=== PATIENT | male | born 1980 | race Caucasian/White ===

== ENCOUNTER 2021-09-30 18:50 | Emergency (ER) | payer OTHER, SELFPAY ==
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
[2021-09-30 19:13] VITALS: BP 144/86; PULSE 118; RESP 18; TEMP 36.2; O2SAT 100
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
[2021-09-30] MEDS: HYDROcodone/acetaminophen (*CRX) 5-325 MG TABLET 1 TAB PO (20:55)
[2021-09-30 21:17] VITALS: BP 148/110; PULSE 106; RESP 20; TEMP 36.1; O2SAT 93
== END 2021-09-30 21:19 | disposition home or self-care (01) ==
LOC: ANHED 20:56
PROVIDERS: Emergency Provider Emergency Medicine; PCP Family Medicine
DX: S52.571A Other intraarticular fracture of lower end of right radius, initial encounter for closed fracture (principal); S52.611A Displaced fracture of right ulna styloid process, initial encounter for closed fracture; F17.200 Nicotine dependence, unspecified, uncomplicated; Y04.0XXA Assault by unarmed brawl or fight, initial encounter
CPT/HCPCS: 29125; 73110; 73130; 99284; A4565; A9270

== ENCOUNTER 2023-07-17 07:43 | Outpatient (CLI) | payer OTHER, SELFPAY ==
--- NOTE | ~2023-07-17 | US_ITS ---
US right upper quadrant INDICATION: Abdomen pain PROCEDURE: Realtime right upper abdominal ultrasound. COMPARISON: No prior studies for comparison. FINDINGS: The pancreas is normal without focal mass or pancreatic ductal dilation. Liver echotexture is increased, consistent with fatty infiltration. There is normal directional flow in the portal ve in. The gallbladder is normal without stones, gallbladder wall thickening or pericholecystic fluid. Comm on bile duct measures 4 mm. No sonographic Colvin's sign. IMPRESSION: 1: Hepatic steatosis. Reviewed, dictated and finalized at location L. IMPRESSION: 1: Hepatic steatosis.
== END 2023-07-17 07:44 ==
LOC: MICIMG 07:44
PROVIDERS: PCP Family Medicine; Visit Provider Family Medicine
DX: R10.9 Unspecified abdominal pain (principal); K76.0 Fatty (change of) liver, not elsewhere classified
CPT/HCPCS: 76705

== ENCOUNTER → 2023-11-05 15:22 | Outpatient (CLI) | payer OTHER, SELFPAY ==
--- NOTE | ~2023-11-05 | XR_ITS ---
XR hip RT 2V w AP pelvis DATE: 11/05/2023 15:36 INDICATION: Right hip pain TECHNIQUE: AP pelvis. AP and lateral views of right hip COMPARISON: None FINDINGS: The pubic symphysis and sacroiliac joints are intact. No pelvic fracture or bone destructio n is detected. The hip joint space spaces appear symmetric and relatively preserved. No fracture or dislocation, richard scular necrosis or bone destruction of the right hip is detected. IMPRESSION: No significant abnormality Reviewed, dictated and finalized at location B. [employer] IMPRESSION: No significant abnormality
== END ==
PROVIDERS: PCP Family Medicine; Visit Provider Family Medicine
DX: M25.551 Pain in right hip (principal)
CPT/HCPCS: 73502

== ENCOUNTER 2023-11-06 14:17 | Emergency (ER) | payer OTHER, SELFPAY ==
[2023-11-06 14:20] VITALS: BP 157/99; PULSE 108; RESP 18; TEMP 36.6; O2SAT 98
--- NOTE | 2023-11-06 14:40 | ED.GENADULT ---
HPI - General Adult General Chief complaint: Extremity Injury, Lower Stated complaint: right back/leg pain Time Seen by Provider: 11/06/23 14:29 Source: patient Mode of arrival: ambulatory Limitations: no limitations History of Present Illness HPI narrative: This is a 43-year-old male who presents to the ED with chief complaint of right lower back pain the past 4 days. Reports that he was seen by primary care who ordered a pelvis x-ray. He was trying to get in touch with them about the results and told them he was still having significant pain so they told him to go to the ER. He has tried ibuprofen, Tylenol and muscle relaxers with minimal relief. Denies trauma, unexplained weight loss, numbness, weakness, fevers, chills, nausea, vomiting, history of IV drug use, long-term steroid use or cancer history. States he is not very active and does not do a lot of strenuous activity. Denies loss of bowel or bladder control. Related Data Home Medications Medication Instructions Recorded Confirmed atorvastatin 10 mg tablet (Lipitor) 10 mg PO DAILY 10/03/21 fluoxetine 10 mg capsule (Prozac) 10 mg PO DAILY 10/03/21 melatonin 3 mg capsule 3 mg PO QHS 10/03/21 omeprazole 10 mg capsule,delayed 10 mg PO DAILY 10/03/21 release Allergies Allergy/AdvReac Type Severity Reaction Status Date / Time No Known Allergies Allergy Verified 08/27/23 08:11 Review of Systems Review of Systems: All systems as dictated in [facility] Past Medical History Medical History (Updated 11/06/23 @ 15:02 by Emilio Xie PA-C) Diabetes Hypertension Sleep apnea Surgical History Surgical History (Updated 10/03/21 @ 11:47 by Kitty Webster MA) History of appendectomy History of tonsillectomy Family History Family History (Updated 08/27/23 @ 08:12 by YARITZA Cedeno) Mother Family history of diabetes mellitus in first degree relative Family history of malignant neoplasm of breast in first degree relative Father No problems noted. Sibling No problems noted. Social History Social History (Updated 10/03/21 @ 11:48 by Kitty Webster MA) Smoking status: Current every day smoker Alcohol intake: current Alcohol use details: once a month Substance use: never Exam Narrative: GENERAL: Well-appearing, well-nourished, and in no acute distress. HEAD: Normocephalic, atraumatic. EYES: PERRLA and EOMI. ENT: Nares clear, no rhinorrhea or epistaxis. Mucous membranes moist. Oropharynx without tonsillar hypertrophy exudate or other lesions. NECK: Supple. No adenopathy or masses. CHEST: No respiratory distress. Clear to auscultation. No wheezes rales or rhonchi HEART: Regular rate and rhythm. No murmur heard. Normal peripheral pulses. ABDOMEN: Soft, nontender, nondistended, normal active bowel sounds. MSK: Mild right lumbar paraspinal muscle tenderness as well as upper gluteal tenderness. No tenderness over the SI joints. No midline spinal tenderness. Straight leg raise negative bilaterally. Ambulatory without difficulty. normal range of motion. No edema. SKIN: Warm, dry, no rash. NEURO: Alert and oriented x3. No focal deficits. No saddle anesthesia. PSYCH: Normal mood and affect. Course Vital Signs Vital signs: Vital Signs Temperature 97.9 F 11/06/23 14:20 Pulse Rate 108 H 11/06/23 14:20 Respiratory Rate 18 11/06/23 14:20 Blood Pressure 157/99 H 11/06/23 14:20 Pulse Oximetry 98 11/06/23 14:20 Oxygen Delivery Room Air 11/06/23 14:20 Temperature 97.9 F 11/06/23 14:20 Pulse Rate 103 H 11/06/23 14:43 Respiratory Rate 19 11/06/23 14:43 Blood Pressure 156/107 H 11/06/23 14:43 Pulse Oximetry 96 11/06/23 14:43 Oxygen Delivery Room Air 11/06/23 14:20 Medical Decision Making MDM Narrative Medical decision making narrative: This patient presents with back pain most consistent with muscle strain. Differential diagnoses includes lumbago versus muscu
[2023-11-06 14:43] VITALS: BP 156/107; PULSE 103; RESP 19; O2SAT 96
[2023-11-06] MEDS: KETOROLAC 30 MG/ML VIAL (*BKC) IM (15:04)
== END 2023-11-06 15:21 | disposition home or self-care (01) ==
PROVIDERS: Emergency Provider Physician Assistant; PCP Family Medicine
DX: M54.50 Low back pain, unspecified (principal); E11.9 Type 2 diabetes mellitus without complications; I10 Essential (primary) hypertension; G47.30 Sleep apnea, unspecified; F17.200 Nicotine dependence, unspecified, uncomplicated
CPT/HCPCS: 96372; 99283; J1885

== ENCOUNTER 2025-04-19 02:40 | Day surgery (SDC) | payer OTHER, SELFPAY ==
[2025-04-04 13:19] VITALS: BMI 38.8
--- OUTSIDE RECORDS SUMMARY | 2025-04-19 02:49 | XMS_ITS | Data Portability ---
Author Organization [facility] [employer], Main Office Address [address] [place] [address] Assessment No assessment recorded. Plan of Treatment Reminders Order Date Submit Date Provider Last Modified By Organization Details Last Modified Time Details Appointments None recorded. Lab HbA1c (hemoglobi n A1c), blood 2023 024 [email or web address] 2 [facility], [address], [place], [address], 5 08:28:49 lipid panel, serum 2023 024 2 [facility], [address], [place], [address], 5 08:28:49 CMP, serum or plasma 2023 024 [email or web address] 2 [facility], [address], [place], [address], 5 08:28:49 CBC w/ auto diff 2023 024 [email or web address] 2 [facility], [address], [place], [address], 5 08:28:49 TSH, ultra-sens itive, serum 2023 024 [email or web address] 2 [facility], [address], [place], [address], 5 08:28:49 Hepatitis C IgG Ab, qual, serum 2023 024 [email or web address] 2 [facility], [address], [place], [address], 5 08:28:49 testostero ne, free + total, serum [address] (Lab), [address] [place], [address], 4 07:57:36 [email or web address] lobin, total, blood [address] (Lab), [address] [place], [address], 4 08:16:11 CMP, serum or plasma 2023 024 [facility] (Lab), [address] [place], [address], 4 08:25:16 CMP, serum or plasma 2022 023 DEXTER Not available 3 21:25:44 CBC w/ auto diff 2022 023 [email or web address] Not available 3 08:14:15 amylase, serum or plasma 2022 023 DEXTER Not available 3 21:44:18 lipase, serum or plasma 2022 023 DEXTER Not available 3 23:42:51 Referral gastroente rologist referral - Please call patient to schedule. 2023 024 nina Srivastava MD, [address], [place], [address], 5 14:04:08 Procedures None recorded. Surgeries None recorded. Imaging US, abdomen - RUQ US-rule out gallbladde r *Please call pt to schedule* 2022 023 [email or web address] [facility], [address], [place], [address], 3 09:40:38 Medication Orders zolpidem 10 mg tablet 2023 024 [facility], [address], [place], [place], [id number], 4 16:06:48 atorvastat in 40 mg tablet 2023 024 [facility], [address], [place], [place], [id number], 4 16:06:46 fluoxetine 40 mg capsule 2023 024 [facility], [address], [place], [place], [id number], 4 16:06:46 losartan 50 mg tablet 2023 024 [address] [facility]28452, [address], [place], [place], [id number], 4 16:10:46 omeprazole 20 mg capsule,de layed release 2023 024 [facility], [address], [place], [place], [id number], 4 16:06:54 Mounjaro 7.5 mg/0.5 mL subcutaneo us pen injector 2023 024 [address] [facility]10, [address], [place], [place], [id number], 4 15:52:10 sucralfate 1 gram tablet 2022 023 lizeth [facility], [address], [place], [place], [id number], 4 15:41:12 pantoprazo le 40 mg tablet,del ayed release 2022 023 [email or web address] [facility], [address], [place], [place], [id number], 15:06:22 Patient TargetsNo targets recorded. Patient Instructions Encounter Date Encounter Id Patient Instructions Last Modified By Organization Details Last Modified Time 09/22/2024 [id number] diabetic foot exam* [email or web address] Not available 01/06/2025 09:47:14 Follow up in 6 months Obtain labs Tests: Referral: Dr. Srivastava-colonoscopy Recommend: Tetanus vaccine [email or web address] Not available 09/22/2024 15:59:04 Reason for Referral User Experience Team Lead Referral for Screening for malignant neoplasm of colon Please call patient to schedule. Referring Physician: Ban Augustin, Internal Medicine, Encounter Date: 09/22/2024 Results Created Date Observation Date Name Description Value Unit Range Abnormal Flag Note LastModifiedBy Organization Detail LastModifiedTime 06/05/2006/05/2023 TEST NOT PERFO RMED test not performed SEE COMMEN T UNABL E TO PERFO RM CBC TESTI NG DUE TO CLOT IN SPECI MEN. Not Available [facility] (Lab) [address] [place], [address], 06/05/2023 21:01:17 06/05/2006/05/2023 COMPR EHENS MUNIRA METAB OLIC PANEL sodium 137 mmol/ L 137-14 5 Not Available [facility] (Lab) [address] [place], [address], 06/05/2023 21:25:44 06/05/2006/05/2023 COMPR EHENS MUNIRA METAB OLIC PANEL potassium 4.5 mmol/ L 3.5-5. 1 Not Available [facility] (Lab) [address] [place], [address], 06/05/2023 21:25:44 06/05/20 23 06/05/2023 COMPR EHENS MUNIRA METAB OLIC PANEL chloride 102 mmol/ L 98-107 Not Available [facility] (Lab) [address] [place], [address], 06/05/2023 21:25:44 06/05/20 23 06/05/2023 COMPR EHENS MUNIRA METAB OLIC PANEL carbon dioxide 25 mmol/ L 22-30 Not Available [facility] (Lab) [address] [place], [address], 06/05/2023 21:25:44 06/05/20 23 06/05/2023 COMPR EHENS MUNIRA METAB OLIC PANEL anion gap 14.5 mmol/ L 14-22 Not Available [facility] (Lab) [address] [place], [address], 06/05/2023 21:25:44 06/05/20 23 06/05/2023 COMPR EHENS MUNIRA METAB OLIC PANEL glucose 160 mg/dL 70-99 high Not Available [facility] (Lab) [address] [place], [address], 06/05/2023 21:25:44 06/05/20 23 06/05/2023 COMPR EHENS MUNIRA METAB OLIC PANEL BUN 23 mg/dL 8-19 high Not Available [facility] (Lab) [address] [place], [address], 06/05/2023 21:25:44 06/05/20 23 06/05/2023 COMPR EHENS MUNIRA METAB OLIC PANEL creatinine 1.02 mg/dL 0.66-1 .25 Not Available [facility] (Lab) [address] [place], [address], 06/05/2023 21:25:44 06/05/20 23 06/05/2023 COMPR EHENS MUNIRA METAB OLIC PANEL GFR >60 Refer ence Range : Pelzer ge GFR Healt hy Adult : >60 mL/mi n/1.7 3 m2 Chron ic Kidne y Disea se: 15-60 mL/mi n/1.7 3 m2 Kidne y Failu re: <15/m L/min /1.73 m2 www.n iddk. nih.g ov The MDRD study equat ion has not been valid ated in child justine <18 years of age; pregn ant women ; the elder ly >85 years of age; or in some racia l or ethni c subgr oups, such as Hispa nics. Outsi de the valid ated elizabeth eters , estim ated GFR is less accur ate, requi ring clini michelle judgm ent on a case- by-ca se basis . Clini michelle inter preta tion for other races and ages must be made by the clini flaco. The MDRD study equat ion has not been valid ated for the evalu ation of serum creat inine relat ed to nutri harry l statu s or medic ation usage . For perso ns <18 years of age, a pedia tric GFR calcu lator is avail able on the [facility] websi te: https :[email or web address] w.cindy beverly.o charisma/pr ofess ional s/kdo qi/gf r_cal culat or Not Available [facility] (Lab) [address] [place], [address], 06/05/2023 21:25:44 06/05/20 23 06/05/2023 COMPR EHENS MUNIRA METAB OLIC PANEL alkaline phosphatase 96 U/L 38-126 Not Available [facility] (Lab) [address] [place], [address], 06/05/2023 21:25:44 06/05/20 23 06/05/2023 COMPR EHENS MUNIRA METAB OLIC PANEL alanine aminotransfe rase 121 U/L 0-50 high Not Available [facility] (Lab) [address] [place], [address], 06/05/2023 21:25:44 06/05/20 23 06/05/2023 COMPR EHENS MUNIRA METAB OLIC PANEL aspartate aminotransfe rase 74 U/L 15-46 high Not Available [facility] (Lab) [address] [place], [address], 06/05/2023 21:25:44 06/05/20 23 06/05/2023 COMPR EHENS MUNIRA METAB OLIC PANEL bilirubin, total 0.90 mg/dL 0.20-1 .30 Not Available [facility] (Lab) [address] [place], [address], 06/05/2023 21:25:44 06/05/20 23 06/05/2023 COMPR EHENS MUNIRA METAB OLIC PANEL calcium 9.3 mg/dL 8.4-10 .2 Not Available [facility] (Lab) [address] [place], [address], 06/05/2023 21:25:44 06/05/20 23 06/05/2023 COMPR EHENS MUNIRA METAB OLIC PANEL total protein 7.7 g/dL 6.3-8. 2 Not Available [facility] (Lab) [address] [place], [address], 06/05/2023 21:25:44 06/05/20 23 06/05/2023 COMPR EHENS MUNIRA METAB OLIC PANEL albumin 4.6 g/dL 3.4-5. 0 Not Available [facility] (Lab) [address] [place], [address], 06/05/2023 21:25:44 06/05/20 23 06/05/2023 COMPR EHENS MUNIRA METAB OLIC PANEL globulin 3.1 g/dL 2.6-4. 2 Not Available [facility] (Lab) [address] [place], [address], 06/05/2023 21:25:44 06/05/20 23 06/05/2023 COMPR EHENS MUNIRA METAB OLIC PANEL A/G ratio 1.5 ratio 1.0-2. 0 Not Available [facility] (Lab) [address] [place], [address], 06/05/2023 21:25:44 06/05/20 23 06/05/2023 AMYLA SE SERUM amylase 64 U/L 30-110 Not Available [facility] (Lab) [address] [place], [address], 06/05/2023 23:42:49 06/05/20 23 06/05/2023 LIPAS E SERUM lipase 93 U/L 23-300 Not Available [facility] (Lab) [address] [place], [address], 06/05/2023 23:42:51 06/19/20 23 06/20/2023 CBC WITH DIFFE RENTI AL/PL ATELE T WBC 7.6 x10e3 /uL 3.4-10 .8 Not Available [facility] ([facility]) [address] [place], [address], 06/20/2023 09:14:41 06/19/2006/20/2023 CBC WITH DIFFE RENTI AL/PL ATELE T RBC 5.02 x10e6 /uL 4.14-5 .80 Not Available [facility] ([facility]) [address] [place], [address], 06/20/2023 09:14:41 06/19/2006/20/2023 CBC WITH DIFFE RENTI AL/PL ATELE T hemoglobin 14.8 g/dL 13.0-1 7.7 Not Available [facility] ([facility]) [address] [facility], [place], [address], 06/20/2023 09:14:41 06/19/20 23 06/20/2023 CBC WITH DIFFE RENTI AL/PL ATELE T hematocrit 42.7 % 37.5-5 1.0 Not Available [facility] ([facility]) [address] [facility], [place], [address], 06/20/2023 09:14:41 06/19/20 23 06/20/2023 CBC WITH DIFFE RENTI AL/PL ATELE T MCV 85 fL 79-97 Not Available [facility] ([facility]) [address] [facility], [place], [address], 06/20/2023 09:14:41 06/19/20 23 06/20/2023 CBC WITH DIFFE RENTI AL/PL ATELE T MCH 29.5 pg 26.6-3 3.0 Not Available [facility] ([facility]) [address] [facility], [place], [address], 06/20/2023 09:14:41 06/19/20 23 06/20/2023 CBC WITH DIFFE RENTI AL/PL ATELE T MCHC 34.7 g/dL 31.5-3 5.7 Not Available [facility] ([facility]) [address] [facility], [place], [address], 06/20/2023 09:14:41 06/19/20 23 06/20/2023 CBC WITH DIFFE RENTI AL/PL ATELE T RDW 13.2 % 11.6-1 5.4 Not Available [facility] ([facility]) [address] [facility], [place], [address], 06/20/2023 09:14:41 06/19/2006/20/2023 CBC WITH DIFFE RENTI AL/PL ATELE T platelets 345 x10e3 /uL 150-45 0 Not Available [facility] ([facility]) [address] [facility], [place], [address], 06/20/2023 09:14:41 06/19/20 23 06/20/2023 CBC WITH DIFFE RENTI AL/PL ATELE T neutrophils 60 % not estab. Not Available [facility] ([facility]) [address] [place], [address], 06/20/2023 09:14:41 06/19/20 23 06/20/2023 CBC WITH DIFFE RENTI AL/PL ATELE T lymphs 29 % not estab. Not Available [facility] ([facility]) [address] [facility], [place], [address], 06/20/2023 09:14:41 06/19/20 23 06/20/2023 CBC WITH DIFFE RENTI AL/PL ATELE T monocytes 8 % not estab. Not Available [facility] ([facility]) [address] [facility], [place], [address], 06/20/2023 09:14:41 06/19/20 23 06/20/2023 CBC WITH DIFFE RENTI AL/PL ATELE T eos 2 % not estab. Not Available [facility] ([facility]) [address] [facility], [place], [address], 06/20/2023 09:14:41 06/19/20 23 06/20/2023 CBC WITH DIFFE RENTI AL/PL ATELE T basos 1 % not estab. Not Available [facility] ([facility]) [address] [facility], [place], [address], 06/20/2023 09:14:41 06/19/20 23 06/20/2023 CBC WITH DIFFE RENTI AL/PL ATELE T immature cells [employer]EARCH [employer] INSIGHTS EXECUTIVE Not Available [facility] ([facility]) [address] [facility], [place], [address], 06/20/2023 09:14:41 06/19/20 23 06/20/2023 CBC WITH DIFFE RENTI AL/PL ATELE T neutrophils (absolute) 4.5 x10e3 /uL 1.4-7. 0 Not Available [facility] ([facility]) [address] [facility], [place], [address], 06/20/2023 09:14:41 06/19/20 23 06/20/2023 CBC WITH DIFFE RENTI AL/PL ATELE T lymphs (absolute) 2.2 x10e3 /uL 0.7-3. 1 Not Available [facility] ([facility]) [address] [facility], [place], [address], 06/20/2023 09:14:41 06/19/20 23 06/20/2023 CBC WITH DIFFE RENTI AL/PL ATELE T monocytes(ab solute) 0.6 x10e3 /uL 0.1-0. 9 Not Available [facility] ([facility]) [address] [facility], [place], [address], 06/20/2023 09:14:41 06/19/20 23 06/20/2023 CBC WITH DIFFE RENTI AL/PL ATELE T eos (absolute) 0.2 x10e3 /uL 0.0-0. 4 Not Available [facility] ([facility]) [address] [facility], [place], [address], 06/20/2023 09:14:41 06/19/20 23 06/20/2023 CBC WITH DIFFE RENTI AL/PL ATELE T baso (absolute) 0.1 x10e3 /uL 0.0-0. 2 Not Available [facility] ([facility]) [address] [facility], [place], [address], 06/20/2023 09:14:41 06/19/20 23 06/20/2023 CBC WITH DIFFE RENTI AL/PL ATELE T immature granulocytes 0 % not estab. Not Available [facility] ([facility]) [address] [facility], [place], [address], 06/20/2023 09:14:41 06/19/20 23 06/20/2023 CBC WITH DIFFE RENTI AL/PL ATELE T immature grans (abs) 0.0 x10e3 /uL 0.0-0. 1 Not Available [facility] ([facility]) [address] [facility], [place], [address], 06/20/2023 09:14:41 06/19/20 23 06/20/2023 CBC WITH DIFFE RENTI AL/PL ATELE T NRBC [employer]EARCH [employer] INSIGHTS EXECUTIVE Not Available [facility] ([facility]) [address], [place], [address], 06/20/2023 09:14:41 06/19/20 23 06/20/2023 CBC WITH DIFFE RENTI AL/PL ATELE T hematology comments: RESEARCH & INSIGHTS EXECUTIVE Not Available [facility] ([facility]) [address] [facility], [place], [address], 06/20/2023 09:14:41 06/19/20 23 06/20/2023 COMP. METAB OLIC PANEL (14) glucose 141 mg/dL 70-99 above high normal Not Available [facility] ([facility]) [address] [facility], [place], [address], 06/20/2023 09:14:42 06/19/20 23 06/20/2023 COMP. METAB OLIC PANEL (14) BUN 17 mg/dL 6-24 Not Available [facility] ([facility]) [address] [facility], [place], [address], 06/20/2023 09:14:42 06/19/20 23 06/20/2023 COMP. METAB OLIC PANEL (14) creatinine 1.05 mg/dL 0.76-1 .27 Not Available [facility] ([facility]) [address] [facility], [place], [address], 06/20/2023 09:14:42 06/19/20 23 06/20/2023 COMP. METAB OLIC PANEL (14) eGFR 89 mL/mi n/1.7 3 >59 Not Available [facility] ([facility]) [address] [facility], [place], [address], 06/20/2023 09:14:42 06/19/20 23 06/20/2023 COMP. METAB OLIC PANEL (14) BUN/creatini ne ratio 16 9-20 Not Available [facility] ([facility]) [address] [place], [address], 06/20/2023 09:14:42 06/19/20 23 06/20/2023 COMP. METAB OLIC PANEL (14) sodium 138 mmol/ L 134-14 4 Not Available [facility] ([facility]) [address] [place], [address], 06/20/2023 09:14:42 06/19/20 23 06/20/2023 COMP. METAB OLIC PANEL (14) potassium 4.0 mmol/ L 3.5-5. 2 Not Available [facility] ([facility]) [address] [facility], [place], [address], 06/20/2023 09:14:42 06/19/20 23 06/20/2023 COMP. METAB OLIC PANEL (14) chloride 99 mmol/ L 96-106 Not Available [facility] ([facility]) [address] [place], [address], 06/20/2023 09:14:42 06/19/20 23 06/20/2023 COMP. METAB OLIC PANEL (14) carbon dioxide, total 23 mmol/ L 20-29 Not Available [facility] ([facility]) [address] [place], [address], 06/20/2023 09:14:42 06/19/20 23 06/20/2023 COMP. METAB OLIC PANEL (14) calcium 9.5 mg/dL 8.7-10 .2 Not Available [facility] ([facility]) [address] [place], [address], 06/20/2023 09:14:42 06/19/20 23 06/20/2023 COMP. METAB OLIC PANEL (14) protein, total 7.3 g/dL 6.0-8. 5 Not Available [facility] ([facility]) [address] [place], [address], 06/20/2023 09:14:42 06/19/20 23 06/20/2023 COMP. METAB OLIC PANEL (14) albumin 4.6 g/dL 4.1-5. 1 Not Available [facility] ([facility]) [address] [place], [address], 06/20/2023 09:14:42 06/19/20 23 06/20/2023 COMP. METAB OLIC PANEL (14) globulin, total 2.7 g/dL 1.5-4. 5 Not Available [facility] ([facility]) [address] [place], [address], 06/20/2023 09:14:42 06/19/20 23 06/20/2023 COMP. METAB OLIC PANEL (14) A/G ratio 1.7 1.2-2. 2 Not Available [facility] ([facility]) [address] [place], [address], 06/20/2023 09:14:42 06/19/20 23 06/20/2023 COMP. METAB OLIC PANEL (14) bilirubin, total 0.4 mg/dL 0.0-1. 2 Not Available [facility] ([facility]) [address] [place], [address], 06/20/2023 09:14:42 06/19/20 23 06/20/2023 COMP. METAB OLIC PANEL (14) alkaline phosphatase 101 IU/L 44-121 Not Available [facility] ([facility]) [address] [place], [address], 06/20/2023 09:14:42 06/19/20 23 06/20/2023 COMP. METAB OLIC PANEL (14) AST (SGOT) 36 IU/L 0-40 Not Available [facility] ([facility]) [address] [place], [address], 06/20/2023 09:14:42 06/19/20 23 06/20/2023 COMP. METAB OLIC PANEL (14) ALT (SGPT) 72 IU/L 0-44 above high normal Not Available [facility] ([facility]) [address] [place], [address], 06/20/2023 09:14:42 03/18/20 24 03/19/2024 COMP. METAB OLIC PANEL (14) glucose 136 mg/dL 70-99 above high normal Not Available [facility] ([facility]) [address] [place], [address], 03/19/2024 08:25:16 03/18/20 24 03/19/2024 COMP. METAB OLIC PANEL (14) BUN 10 mg/dL 6-24 Not Available [facility] ([facility]) [address] [place], [address], 03/19/2024 08:25:16 03/18/20 24 03/19/2024 COMP. METAB OLIC PANEL (14) creatinine 0.86 mg/dL 0.76-1 .27 Not Available [facility] ([facility]) [address] [place], [address], 03/19/2024 08:25:16 03/18/20 24 03/19/2024 COMP. METAB OLIC PANEL (14) eGFR 109 mL/mi n/1.7 3 >59 Not Available [facility] ([facility]) [address] [place], [address], 03/19/2024 08:25:16 03/18/20 24 03/19/2024 COMP. METAB OLIC PANEL (14) BUN/creatini ne ratio 12 9-20 Not Available [facility] ([facility]) [address] [place], [address], 03/19/2024 08:25:16 03/18/20 24 03/19/2024 COMP. METAB OLIC PANEL (14) sodium 140 mmol/ L 134-14 4 Not Available [facility] ([facility]) [address] [place], [address], 03/19/2024 08:25:16 03/18/20 24 03/19/2024 COMP. METAB OLIC PANEL (14) potassium 3.9 mmol/ L 3.5-5. 2 Not Available [facility] ([facility]) [address] [place], [address], 03/19/2024 08:25:16 03/18/20 24 03/19/2024 COMP. METAB OLIC PANEL (14) chloride 103 mmol/ L 96-106 Not Available [facility] ([facility]) [address] [place], [address], 03/19/2024 08:25:16 03/18/20 24 03/19/2024 COMP. METAB OLIC PANEL (14) carbon dioxide, total 22 mmol/ L 20-29 Not Available [facility] ([facility]) [address] [place], [address], 03/19/2024 08:25:16 03/18/20 24 03/19/2024 COMP. METAB OLIC PANEL (14) calcium 8.9 mg/dL 8.7-10 .2 Not Available [facility] ([facility]) [address] [place], [address], 03/19/2024 08:25:16 03/18/20 24 03/19/2024 COMP. METAB OLIC PANEL (14) protein, total 6.7 g/dL 6.0-8. 5 Not Available [facility] ([facility]) [address] [place], [address], 03/19/2024 08:25:16 03/18/20 24 03/19/2024 COMP. METAB OLIC PANEL (14) albumin 4.3 g/dL 4.1-5. 1 Not Available [facility] ([facility]) [address] [place], [address], 03/19/2024 08:25:16 03/18/20 24 03/19/2024 COMP. METAB OLIC PANEL (14) globulin, total 2.4 g/dL 1.5-4. 5 Not Available [facility] ([facility]) [address] [place], [address], 03/19/2024 08:25:16 03/18/20 24 03/19/2024 COMP. METAB OLIC PANEL (14) A/G ratio 1.8 1.2-2. 2 Not Available [facility] ([facility]) [address] [place], [address], 03/19/2024 08:25:16 03/18/20 24 03/19/2024 COMP. METAB OLIC PANEL (14) bilirubin, total 0.5 mg/dL 0.0-1. 2 Not Available [facility] ([facility]) [address] [place], [address], 03/19/2024 08:25:16 03/18/20 24 03/19/2024 COMP. METAB OLIC PANEL (14) alkaline phosphatase 105 IU/L 44-121 Not Available [facility] ([facility]) [address] [place], [address], 03/19/2024 08:25:16 03/18/20 24 03/19/2024 COMP. METAB OLIC PANEL (14) AST (SGOT) 36 IU/L 0-40 Not Available [facility] ([facility]) [address] [place], [address], 03/19/2024 08:25:16 03/18/20 24 03/19/2024 COMP. METAB OLIC PANEL (14) ALT (SGPT) 68 IU/L 0-44 above high normal Not Available [facility] ([facility]) [address] [facility], [place], [address], 03/19/2024 08:25:16 03/18/20 24 03/19/2024 HEMOG LOBIN A1C hemoglobin A1C 6.1 % 4.8-5. 6 above high normal Predi abete s: 5.7 - 6.4 Diabe ajc: >6.4 Glyce aleksandra contr ol for adult s with diabe jca: <7.0 Not Available [facility] ([facility]) [address] [facility], [place], [address], 03/19/2024 08:25:18 07/17/20 23 07/17/2023 US, abdom en No observ ation record ed. [email or web address] [facility] [address], [place], [address], 07/17/2023 10:49:18 11/05/19 24 11/05/2023 XR, hip + pelvi s, unila teral No observ ation record ed. [email or web address] [facility] [address], [place], [address], 11/11/2023 07:53:01 11/06/19 24 11/05/2023 XR, hip + pelvi s, unila teral No observ ation record ed. [facility] [address], [place], [address], 11/12/2023 11:36:25 Result Notes None recorded. Problems Name Problem SNOMED Code Status Onset Date Resolution Date Notes Provider Name and Address Organization Details Recorded Time Hyperchol esterolem ia 19662463 Active Not Available [facility] 3 17:43:19 Disorder of thyroid gland 37890529 Completed Not Available [facility] 3 17:43:19 Depressiv e disorder 68632532 Active 2020 Ban Augustin, [employer] [address], [place], [address] , [facility] [employer] [facility] 4 14:02:44 Hypertens munira disorder 12737009 Completed 09/22/2024 Ban Augustin APRN [address], [place], [address] , [employer] [facility] [employer] [facility] 4 15:55:24 Hypogonad ism [id number] Active 2020 Ban Augustin APRN [address], [place], [address] , [employer] [facility] 4 14:02:57 Male hypogonad ism [id number] Active 2021 Not Available [employer] 3 17:43:19 Dysuria [id number] Completed Pat Lucas MD [address], [address], [place], [address] , [employer] [facility] [employer] [facility] 3 16:26:57 Essential hypertens ion [id number] Active 2021 Ban Augustin APRN [address], [place], [address] , [employer] 4 14:02:50 Diabetes mellitus [id number] Active Ban Augustin APRN [address] [address], [address], [place], [address] , [employer] [facility] [employer] [facility] 4 14:02:47 Insomnia 822490404 Active 2022 Ban Augustin APRN [address], [address], [place], [address] , [employer] [facility] 4 14:02:59 Otalgia of right ear 3781189847 Active 2022 Pat Lucas MD [address], [address], [place], [address] , [employer] [facility] [employer] [facility] 3 13:06:18 Cough 94642009 Active 2022 Pat Lucas MD [address], [address], [place], [address] , [place] [facility] 3 11:20:08 Abdominal pain 98158639 Active 2022 Pat Lucas MD [address], [address], [place], [address] , [place] [facility] 3 08:20:26 Bronchiti s 64279675 Active 2022 Pat Lucas MD [address], [address], [place], [address] , [place] [facility] 3 13:23:07 Hematoche karen 210407051 Active 2022 Pat Lucas MD [address], [address], [place], [address] , [place] [facility] 3 15:41:05 Sleep apnea 39200204 Active 2022 Ban Augustin APRN [address], [address], [place], [address] , [place] [facility] 4 14:03:11 Fatigue 23921700 Active 2022 Ban Augustin APRN [address], [address], [place], [address] , [place] [facility] 4 14:02:53 Dysuria 06025605 Active 2022 Pat Lucas MD [address], [address], [place], [address] , [facility] 3 16:26:57 Pain of right hip joint 54115937978 9102 Active 2023 Pat Lucas MD [address], [address], [place], [address] , [place] [facility] 4 12:26:38 Low back pain 753855309 Active 2023 Ban Augustin APRN [address], [address], [place], [address] , [place] [facility] 4 14:03:03 Gastroeso phageal reflux disease without esophagit is 788422629 Active 2023 Ban Augustin APRN [address], [address], [place], [address] , [employer] 4 16:02:26 Obesity 782350150 Active 2023 Ban Augustin APRN [address], [address], [place], [address] , [employer] 4 16:04:55 Problem Notes None recorded. Procedures Surgical History Date Name Laterality Status Provider Name and Address Organization Details Recorded Time Tonsillectomy completed Not Available [facility] 01/01/2023 17:42:30 appendectomy completed Not Available [facility] 01/01/2023 17:42:30 procedure on wrist completed Esther Alicea MA [employer] 09/22/2024 15:44:00 Imaging Results None recorded. Procedure Notes None recorded. Medical Equipment None Reported. Allergies No known drug allergies Medications Name Sig Start Date Stop Date Status Note LastModified by Organization Details LastModified Time losartan 50 mg tablet TAKE 1 TABLET BY MOUTH EVERY DAY DIRECTED FOR HIGH BLOOD PRESSURE active Not Available Not Available No t Available fluoxetine 40 mg capsule TAKE 1 CAPSULE BY MOUTH DAILY active Not Available Not Available No t Available cyclobenzap rine 10 mg tablet Take 1 tablet 3 times a day by oral route as needed for 30 days. active Not Available Not Available No t Available atorvastati n 40 mg tablet TAKE 1 TABLET BY MOUTH EVERY DAY IN THE EVENING active Not Available Not Available No t Available metformin 500 mg tablet TAKE 1 TABLET BY MOUTH EVERY DAY 06/19 completed Not Available Not Available Not Available anastrozole 1 mg tablet TAKE 1 TABLET BY MOUTH 1 TIME EVERY 2 WEEKS 12/03 completed Not Available Not Available Not Available bupropion HCl SR 150 mg tablet,12 hr sustained-r elease 06/19 completed Not Available Not Available Not Available neomycin-po lymyxin-hyd rocort 3.5 mg/mL-10,00 0 unit/mL-1 % ear solution 06/19 completed Not Available Not Available Not Available doxycycline hyclate 100 mg capsule Take 1 capsule twice a day by oral route for 7 days. 03/25 completed Not Available Not Available Not Available paroxetine 10 mg tablet active Not Available Not Available Not Available atorvastati n 20 mg tablet TAKE 1 TABLET BY MOUTH DAILY 06/19 completed Not Available Not Available Not Available BD Regular Bevel Grinnell 20 gauge x 1 USE TO DRAW TESTOSTER ONE EVERY WEEK 03/18 completed Not Available Not Available Not Available BD Insulin Syringe 1 mL 25 x 1 USE TO INJECT TESTOSTER ONE IN THE MUSCLE EVERY WEEK 03/18 completed Not Available Not Available Not Available benzonatate 200 mg capsule TAKE 1 CAPSULE BY MOUTH THREE TIMES DAILY FOR COUGH active Not Available Not Available No t Available metoprolol succinate ER 50 mg tablet,exte nded release 24 hr 12/03 completed Not Available Not Available Not Available hydrocodone 5 mg-acetamin ophen 325 mg tablet TAKE 1 TABLET BY MOUTH TWICE DAILY NEEDED FOR SEVERE PAIN 03/18 completed Not Available Not Available Not Available ondansetron HCl 8 mg tablet TAKE 1 TABLET BY MOUTH THREE TIMES DAILY NEEDED 03/18 completed Not Available Not Available Not Available sucralfate 1 gram tablet TAKE 1 TABLET BY MOUTH EVERY 6 HOURS 30 MINUTES BEFORE EATING 09/22 completed Not Available Not Available Not Available lisinopril 20 mg tablet 06/19 completed Not Available Not Available Not Available prednisone 20 mg tablet 3 po qday x 3 days then 2 po qday x 3 days then 1 po qday x 3 days then 1/2 po qday x 3 days then stop 03/18 completed Not Available Not Available Not Available ciprofloxac in 250 mg tablet TAKE 1 TABLET BY MOUTH EVERY 12 HOURS FOR 7 DAYS 03/18 completed Not Available Not Available Not Available amlodipine 5 mg tablet 12/03 completed Not Available Not Available Not Available sulfamethox azole 800 mg-trimetho prim 160 mg tablet 06/19 completed Not Available Not Available Not Available hydrocodone 10 mg-acetamin ophen 325 mg tablet TAKE 1 TABLET BY MOUTH THREE TIMES DAILY NEEDED 12/03 completed Not Available Not Available Not Available doxycycline monohydrate 100 mg tablet TAKE 1 TABLET BY MOUTH TWICE DAILY FOR 7 DAYS 03/18 completed Not Available Not Available Not Available quetiapine 100 mg tablet 1 tablet hs 06/19 completed Not Available Not Available Not Available triamcinolo ne acetonide 0.1 % topical cream APPLY THIN LAYER TOPICALLY TO THE AFFECTED AREA TWICE DAILY NEEDED FOR RASH 09/22 completed Not Available Not Available Not Available levothyroxi ne 25 mcg tablet 06/19 completed Not Available Not Available Not Available ketorolac 10 mg tablet TAKE 1 TABLET BY MOUTH BY MOUTH EVERY 6 HOURS NEEDED FOR PAIN 06/05 completed Not Available Not Available Not Available oxycodone-a cetaminophe n 5 mg-325 mg tablet TAKE 1 TABLET BY MOUTH EVERY 4 HOURS NEEDED FOR PAIN 03/18 completed Not Available Not Available Not Available propranolol 10 mg tablet 06/19 completed Not Available Not Available Not Available amoxicillin 875 mg tablet TAKE 1 TABLET BY MOUTH EVERY 12 HOURS FOR 7 DAYS active Not Available Not Available No t Available BD Luer-Darrell Syringe 3 mL 23 gauge x 1 1/2 USE TO INJECT TESTOSTER ONE 03/18 completed Not Available Not Available Not Available tamsulosin 0.4 mg capsule Take 1 capsule every day by oral route. 06/19 completed Not Available Not Available Not Available trazodone 100 mg tablet active Not Available Not Available Not Available hydrocodone 7.5 mg-acetamin ophen 325 mg tablet TAKE 1 TABLET BY MOUTH EVERY 4 TO 6 HOURS NEEDED FOR PAIN 06/05 completed Not Available Not Available Not Available cephalexin 500 mg capsule TAKE 1 CAPSULE BY MOUTH TWICE DAILY UNTIL ALL TAKEN 11/07 completed Not Available Not Available Not Available paroxetine 20 mg tablet active Not Available Not Available Not Available pantoprazol e 40 mg tablet,eric yed release Take 1 tablet twice a day by oral route. 03/18 completed Not Available Not Available Not Available erythromyci n 5 mg/gram (0.5 %) eye ointment APPLY SMALL AMOUNT TO THE EYELID THREE TIMES DAILY AFTER SURGERY FOR 10 DAYS 05/03 completed Not Available Not Available Not Available olopatadine 0.1 % eye drops INSTILL 1 DROP INTO RIGHT EYE TWICE DAILY FOR 2 WEEKS 11/07 completed Not Available Not Available Not Available losartan 25 mg tablet TAKE 1 TABLET BY MOUTH EVERY DAY 03/18 completed Not Available Not Available Not Available fluoxetine 10 mg capsule active Not Available Not Available Not Available nitroglycer in 0.4 mg sublingual tablet 12/03 completed Not Available Not Available Not Available gabapentin 300 mg capsule Take 1 capsule twice a day by oral route. active Not Available Not Available No t Available omeprazole 20 mg capsule,del ayed release TAKE 1 CAPSULE BY MOUTH EVERY DAY active Not Available Not Available No t Available cephalexin 500 mg tablet Take 1 tablet twice a day by oral route for 7 days. 11/07 completed Not Available Not Available Not Available lisinopril 5 mg tablet TAKE 1 TABLET BY MOUTH EVERY DAY 06/19 completed Not Available Not Available Not Available loteprednol etabonate 0.5 % eye drops,suspe nsion INSTILL 1 DROP INTO RIGHT EYE FOUR TIMES DAILY FOR 2 WEEKS 11/07 completed Not Available Not Available Not Available testosteron e cypionate 200 mg/mL intramuscul ar oil ADMINISTE R 0.5 ML IN THE MUSCLE EVERY 2 WEEKS 03/18 completed Not Available Not Available Not Available ibuprofen 600 mg tablet Take 1 tablet 3 times a day by oral route as needed for 30 days. 03/18 completed Not Available Not Available Not Available zolpidem 10 mg tablet 1 po qhs prn insomnia 2023 active Not Available Not Available Not Avai lable methylpredn isolone 4 mg tablets in a dose pack FOLLOW PACKAGE DIRECTION S 03/18 completed Not Available Not Available Not Available Vitamin D2 1,250 mcg (50,000 unit) capsule 1 capsule once a week 06/19 completed Not Available Not Available Not Available BD Luer-Darrell Syringe 3 mL 18 x 1 1/2 USE DIRECTED TO DRAW UP TESTOSTER ONE 03/18 completed Not Available Not Available Not Available losartan 100 mg tablet Take 1 tablet every day by oral route. active Not Available Not Available No t Available fluoxetine 20 mg capsule active Not Available Not Available Not Available fluticasone propionate 50 mcg/actuati on nasal spray,suspe nsion SHAKE LIQUID AND USE 1 SPRAY IN EACH NOSTRIL TWICE DAILY active Not Available Not Available No t Available metformin ER 500 mg tablet,exte nded release 24 hr 06/19 completed Not Available Not Available Not Available amoxicillin 875 mg-potassiu m clavulanate 125 mg tablet TK 1 T PO BID FOR 7 DAYS 07/02 completed Not Available Not Available Not Available neomycin-po lymyxin-hyd rocort 3.5 mg-10,000 unit/mL-1 % ear drops,susp INSTILL 4 DROPS INTO AFFECTED EAR(S) BY OTIC ROUTE 3 TIMES PER DAY x 7 days active Not Available Not Available No t Available aripiprazol e 5 mg tablet TAKE 1 TABLET BY MOUTH AT BEDTIME 09/22 completed Not Available Not Available Not Available ciprofloxac in 0.3 %-dexametha sone 0.1 % ear drops,suspe nsion SHAKE LIQUID AND INSTILL 4 DROPS TO AFFECTED EAR TWICE DAILY FOR 7 DAYS 03/25 completed Not Available Not Available Not Available rosuvastati n 20 mg tablet 12/03 completed Not Available Not Available Not Available pregabalin 75 mg capsule TAKE 1 CAPSULE BY MOUTH TWICE DAILY 12/03 completed Not Available Not Available Not Available clomiphene citrate 06/19 completed Not Available Not Available Not Available quetiapine 50 mg tablet 06/19 completed Not Available Not Available Not Available Seroquel XR 150 mg tablet,exte nded release active Not Available Not Available Not Available Suboxone 8 mg-2 mg sublingual film 06/19 completed Not Available Not Available Not Available Suboxone 4 mg-1 mg sublingual film active Not Available Not Available Not Available Zubsolv 5.7 mg-1.4 mg sublingual tablet 06/19 completed Not Available Not Available Not Available Ozempic 0.25 mg or 0.5 mg (2 mg/1.5 mL) subcutaneou s pen injector INJECT 0.25 MG UNDER THE SKIN EVERY WEEK 03/25 completed Not Available Not Available Not Available Mounjaro 7.5 mg/0.5 mL subcutaneou s pen injector 0.5 ml sc qweek 09/22 completed Not Available Not Available Not Available Mounjaro 5 mg/0.5 mL subcutaneou s pen injector ADMINISTE R 5 MG UNDER THE SKIN EVERY WEEK 09/22 completed Not Available Not Available Not Available Mounjaro 2.5 mg/0.5 mL subcutaneou s pen injector ADMINISTE R 0.5 ML UNDER THE SKIN EVERY WEEK 01/27 completed Not Available Not Available Not Available Vitals Date Recorded Body height Body mass index (BMI) Body weight Body temperature Heart rate Oxygen saturation Oxygen saturation in Arterial blood by Pulse oximetry Systolic blood pressure Diastolic blood pressure Provider Name and Address Organization Details Last Updated DateTime 4 172.72 cm 44.1 kg/m2 180287. 79 g 97.9 [degF] 84 /min 97 % 97 % 148 mm[Hg] 94 mm[Hg] Karen Boggs RN [facility] [employer] 4 15:08:27 Date Recorded Body height Systolic blood pressure Diastolic blood pressure Provider Name and Address Organization Details Last Updated DateTime 03/25/2023 172.72 cm 136 mm[Hg] 84 mm[Hg] Real Hernandez RN [facility] [employer] 03/25/2023 08:55:09 Date Recorded Body height Body mass index (BMI) Body weight Body temperature Heart rate Oxygen saturation Oxygen saturation in Arterial blood by Pulse oximetry Systolic blood pressure Diastolic blood pressure Provider Name and Address Organization Details Last Updated DateTime 3 172.72 cm 48 kg/m2 130826. 19 g 97 [degF] 110 /min 94 % 94 % 130 mm[Hg] 88 mm[Hg] Real Hernandez RN [facility] [employer] 3 08:07:27 Date Recorded Body height Provider Name an d Address Organization Details Last Updated DateTime 06/19/2023 172.72 cm Nini Camp LPN [facility] [employer] 06/19/2023 09:03:54 Date Recorded Body height Body mass index (BMI) Body weight Body temperature Heart rate Oxygen saturation Oxygen saturation in Arterial blood by Pulse oximetry Systolic blood pressure Diastolic blood pressure Provider Name and Address Organization Details Last Updated DateTime 4 172.72 cm 41.4 kg/m2 044738. 12 g 98 [degF] 101 /min 98 % 98 % 150 mm[Hg] 98 mm[Hg] Esther Alicea MA [facility] [employer] [facility] 4 15:40:05 Social History Question Answer Notes LastModified by Organization Details LastModified Time Tobacco Smoking Status Former Smoker quit 2013 Not Available [employer] 01/01/2023 17:42:23 Do You Wear A Helmet When Biking? Yes MIGRATION.0301 [id number] Information not available 01/01/2023 What Is Your Level Of Caffeine Consumption? Moderate MIGRATION.0301 [id number] Information not available 01/01/2023 In The 14 Days Before Symptom Onset, Have You Had Close Contact With A Laboratory-confi rmed COVID-19 While That Case Was Ill? No MIGRATION.030 [id number] Information not available 01/01/2023 In The 14 Days Before Symptom Onset, Have You Had Close Contact With A Person Who Is Under Investigation For COVID-19 While That Person Was Ill? No MIGRATION.0301 [id number] Information not available 01/01/2023 What Type Of Diet Are You Following? REGULAR MIGRATION.030 [id number] Information not available 01/01/2023 Which Illicit Or Recreational Drugs Have You Used? Mabrielle Information not available 09/22/2024 What Is The Highest Grade Or Level Of School You Have Completed Or The Highest Degree You Have Received? [id number] MIGRATION.0301 [id number] Information not available 01/01/2023 Have There Been Any Changes To Your Family Or Social Situation? No MIGRATION.0301 [id number] Information not available 01/01/2023 When Did You Quit Smoking? 6-10yearssincelastc igarette MIGRATION.0301 [id number] Information not available 01/01/2023 Are There Any Guns Present In Your Home? No MIGRATION.0301 [id number] Information not available 01/01/2023 Do You Use Insect Repellent Routinely? No MIGRATION.0301 [id number] Information not available 01/01/2023 Where Do You Live? [place]LevelHouse MIGRATION.0301 [id number] Information not available 01/01/2023 What Was The Date Of Your Most Recent Tobacco Screening? 09/22/2024 Information not available 09/22/2024 What Is Your Current Pack Years? 30ormorepackyears MIGRATION.0301 [id number] Information not available 01/01/2023 Have You Ever Been Counseled For Unhealthy Alcohol Use? No MIGRATION.0301 [id number] Information not available 01/01/2023 Do You Have Any Pets? No MIGRATION.0301 [id number] Information not available 01/01/2023 What Is Your Relationship Status? MIGRATION.0301 [id number] Information not available 01/01/2023 Do You Use Your Seat Belt Or Car Seat Routinely? Yes MIGRATION.0301 [id number] Information not available 01/01/2023 Do You Have Smoke And Carbon Monoxide Detectors In Your Home? Yes MIGRATION.0301 [id number] Information not available 01/01/2023 At What Age Did You Start Smoking Tobacco? 14 MIGRATION.0301 [id number] Information not available 01/01/2023 Are You Passively Exposed To Smoke? No MIGRATION.0301 [id number] Information not available 01/01/2023 Are There Any Smokers In Your House? No MIGRATION.0301 [id number] Information not available 01/01/2023 Do You Participate In Social Media? No MIGRATION.0301 [id number] Information not available 01/01/2023 Do You Use Sunscreen Routinely? Yes MIGRATION.0301 [id number] Information not available 01/01/2023 Has Tobacco Cessation Counseling Been Provided? No MIGRATION.0301 [id number] Information not available 01/01/2023 Have You Recently Traveled Abroad? No MIGRATION.0301 [id number] Information not available 01/01/2023 Have You Used IV Drugs? No Information not available 09/22/2024 Are You Currently In School? No MIGRATION.0301 [id number] Information not available 01/01/2023 Do You Have Any Dietary Restrictions? No MIGRATION.0301 [id number] Information not available 01/01/2023 How Many Years Have You Used E-cigarettes Or Vape? 2013 MIGRATION.0301 [id number] Information not available 01/01/2023 Sex: Unknown Functional Status Question Answer Note LastModified by Organizat ion Details LastModified Time Do you use any illicit or recreational drugs? Yes Information not available 09/22/2024 Do you or have you ever used any other forms of tobacco or nicotine? Yes [id number] Information not available 01/01/2023 What is your level of alcohol consumption? Occasional MIGRATION.362801 9282 Information not available 01/01/2023 Do you or have you ever used smokeless tobacco? 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 Former user of electronic cigarettes Information not available 09/22/2024 What is your exercise level? None MIGRATION.[id number] Information not available 01/01/2023 Mental Status Question Answer Note LastModified by Organizat ion Details LastModified Time Do you feel stressed (tense, restless, nervous, or anxious, or unable to sleep at night)? [id number] [id number] Information not available 01/01/2023 Family History Relationship Description Onset Age of this Age Resolved Age Notes LastModified by Organization Details LastModified Time Mother Malignant tumor of breast MIGRATION.418 [id number] Not available 01/01/2023 17:42:30 Mother Bipolar disorder MIGRATION.012 [id number] Not available 01/01/2023 17:42:30 Mother Cerebrovascu lar accident MIGRATION.705 [id number] Not available 01/01/2023 17:42:30 Maternal Grandfather Myocardial infarction MIGRATION.651 [id number] Not available 01/01/2023 17:42:30 Paternal Grandfather Myocardial infarction MIGRATION.615 [id number] Not available 01/01/2023 17:42:30 Medical History No medical history recorded. Immunizations Vaccine Type Date Status Note Provider Nam e and Address Organization Details Recorded Time COVID-19, mRNA, LNP-S, PF, 30 mcg/0.3 mL dose 06/03/2021 completed Ban Augustin, [employer] [address] [facility], [facility] [address], [place], [address], [facility] [employer] [facility] 09/21/2024 13:59:16 Past Encounters Encounter ID Performer Location Encounter Start Date Encounter Closed Date Diagnosis/Indication Diagnosis SNOMED-CT Code Diagnosis ICD10 Code Diagnosis Note [id number] [facility] [address] [facility] [address] [place] [address] 06/19/2021 00:00:00 07/02/2021 19:37:00 [id number] [facility] [address] [place] [address] 11/07/2021 00:00:00 11/07/2021 09:03:10 [id number] PATTI Moore S_G [facility] [place] [address] [place] [address] 11/27/2021 00:00:00 11/27/2021 10:27:23 [id number] [facility] [place] [address] [place] [address] 12/26/2021 00:00:00 12/30/2021 21:01:13 [id number] Pat Lucas MD [facility] Primary [facility] [place] [address] [place] [address] 01/23/2022 00:00:00 01/23/2022 15:29:09 [id number] Pat Lucas MD [facility] Primary [facility] [place] [address] [place] [address] 05/01/2022 00:00:00 05/02/2022 08:21:46 [id number] PATTI Moore S_[facility] [place] [address] [place] [address] 06/12/2022 00:00:00 06/12/2022 19:57:25 [id number] Pat Lucas MD [facility] [place] [address] [place] [address] 07/02/2022 00:00:00 07/02/2022 22:32:30 [id number] Pat Lucas MD [facility] Primary [facility] [place] [address] [place] [address] 12/03/2022 00:00:00 12/03/2022 11:24:55 [id number] ISAAK Alvarenga S_[facility] Primary [facility] [place] [address] [place] [address] 03/21/2023 14:00:01 03/21/2023 14:22:27 [id number] Pat Lucas MD [facility] [place] [address] [facility] [address] [place] [address] 03/25/2023 08:38:58 03/25/2023 15:45:48 [id number] Pat Lucas MD [facility] [address] [facility] [address] [place] [address] 06/05/2023 08:00:27 06/05/2023 08:39:48 Abdominal pain 13364679 R10.9 [place] foodsPush clear fluidsChec k labsPantop razole 40 mg bidsulcral fate up to 4x per day before eatingok to continue otc pepcid/[place] RUQif no improvemen t next week, consider CT scan and/or GI referralca ll/return if no improvemen t in 1-2 days or sooner if neededrevi ewed s/s that warrant urgent/adalberto rgent eval in meantime [id number] Pat Lucas MD [facility] Primary [facility] [place] [address] [facility] [address] [place] [address] 06/19/2023 09:00:47 06/19/2023 09:56:47 [id number] Pat Lucas MD [facility] [place] [address] [facility] [address] [place] [address] 03/18/2024 14:51:03 03/18/2024 16:15:39 Diabetes mellitus 93348149 E11.9 -chronic, stable-[place] s not check blood sugar-26lb weight loss since last visit-was using mounjaro 5mg with positive results-wi ll increase to 7.5mg Male hypogonadism 194181 06 E29.1 -hx of low testostero ne-labs obtained [id number] David ferreira MD [facility] [address] [facility] [address] [place] [address] 09/22/2024 15:30:16 09/22/2024 16:15:05 Diabetes mellitus 03301958 E11.9 Screening for malignant neoplasm of colon 112708372 Z12.11 Hepatitis C screening 41 6079445 Z11.59 Hyperlipidemia 08077179 E78.5 Renewal of prescription 375514017 Z76.0 Insomnia 516276306 G47.0 0 Gastroesop hageal reflux disease without esophagitis 929981519 K21.9 Essential hypertension 40245916 I10 Health Concerns Section Related Observation LastModified by Organization Detai ls LastModified Time None Recorded Concern Status LastModified by Organization Details LastModified Time None Recorded Advance Directives Directive None Recorded Payers Insurance Date Sequence Insurance Name Policy Number Policy Lynch Covered Member ID Lynch Member ID Guarantor Name 06/05/2023 1 [employer] (PPO) [id number] Vijay Draper Radha [id number] Vijay Draper Radha 04/06/2025 1 [employer] [facility] BENEFIT PLAN MANAGEMENT (PPO) [id number] Vijay Draper Radha [id number] Vijay Draper Radha Notes Date Note Type Note Provider Name and Address Organization Details Recorded Time 06/05/2023 text/html He started watching diet and eating well around May 06. Around his birthday he fell off rails, he went back to eating salad around 05/08/23 and he has had upset stomach since. He has heartburn any time he eats something. He is burping and has gas. Stools are mostly diarrhea-watery or soft. He is having crampy, abd pain with diarrhea. He feels pain in lower abd and sciatica. He is having fairly constant pain in upper abd. He is taking 1 otc prilosec daily and pepcid and tums without improvement. No blood in stools, +nausea but no vomiting. He wonders about sleep apnea. He has insomnia, snoring and excessive daytime somnolence. Pat Lucas MD [address], [place] [address], [place], [address], [employer] 10/06/2023 19:23:17 03/18/2024 text/html pt is here for labs and DIAN Mackenzie [address], [place], [address], [employer] 03/18/2024 15:32:48 09/22/2024 text/html Vijay presents today for medication follow up. He states that he would like to restart Mounjaro for his diabetes. He states that he is having a panic attack and he would like to see psychiatry to help with his anxiety and depression. Ban Augustin, BAKELITE MOLDER [address] [facility], [address], [place], [address], [place] - [facility] 09/22/2024 16:11:23
--- OUTSIDE RECORDS SUMMARY | 2025-04-19 02:50 | XMS_ITS | Clinical Summary ---
Author Organization [facility] Address [address] [place] [address] Care Team Providers Care General Office Clerk Name Role Phone Pat Lucas MD Primary Care Provider [phone] Allergies No known active allergies Medications melatonin CR 10 MG Tab CR tablet Take 10 mg by mouth nightly at bedtime. Active OZEMPIC 0.25/0.5 MG/DOSE 2 MG/1.5ML injection (PEN) Inject 0.25 mg into the skin once a week. 06/12/2022 Active FLUoxetine (PROZAC) 40 MG capsule Take 40 mg by mouth daily. 06/16/2022 Active omeprazole (PRILOSEC) 20 MG capsule Take 20 mg by mouth daily. Active HYDROcodone-meredith taminophen (NORCO) 10-325 MG tablet Take 1 tablet by mouth 3 (three) times daily as needed. 07/15/2022 Active cyclobenzaprine (FLEXERIL) 10 MG tablet Take 10 mg by mouth 3 (three) times daily as needed. 06/12/2022 Active ibuprofen (MOTRIN) 600 MG tablet Take 600 mg by mouth 3 (three) times daily as needed. 06/12/2022 Active nitroglycerin (NITROSTAT) 0.[address] 1 tablet (0.4 mg total) under the tongue every 5 (five) minutes as needed for Chest Pain. Maximum of 3 doses. After 3rd dose call 07-04- 25 tablet 1 07/22/2022 Active rosuvastatin (CRESTOR) 20 MG tablet Take 1 tablet (20 mg total) by mouth nightly at bedtime. 30 tablet 5 07/25/2022 Active amLODIPine (NORVASC) 5 MG tablet Take 1 tablet (5 mg total) by mouth daily. 30 tablet 5 07/25/2022 Active metoprolol succinate ER (TOPROL-XL) 50 MG 24 hr tablet Take 1 tablet (50 mg total) by mouth daily. 30 tablet 5 07/25/2022 Active Active Problems Problem Noted Date Diagnosed Date Gastroesophageal reflux disease 07/22/2022 Hypercholesterolemia 07/22/2022 Dyspnea 07/22/2022 Essential hypertension 11/07/2021 Hypertensive disorder 11/07/2021 Chest pain in adult Diabetes ([facility]) Obstructive sleep apnea Anxiety and depression Heart palpitations Family History Medical History Relation Comments Diabetes Maternal Grandfather Heart Attack Maternal Grandfather Stroke Maternal Grandfather Cancer Mother Cardiomyopathy Mother Hypertension Mother Stroke Mother CABG Paternal Grandfather Heart Attack Paternal Grandfather Relation Status Comments Brother Alive Father Alive Maternal Grandfather Maternal Grandmother Mother Alive Paternal Grandfather Paternal Grandmother Social History Tobacco Use Types Packs/Day Years Used Date Smoking Tobacco: Former Cigarettes 2015 Smokeless Tobacco: Never Alcohol Use Standard Drinks/Week Comments Yes 0 (1 standard drink = 0.6 oz pur e alcohol) rarely Sex and Gender Information Value Date Recorded Sex Assigned at Not on file Legal Sex Male 7:13 PM CDT Gender Identity Not on file Sexual Orientation Not on file 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 Not on file Not on file Last Filed Vital Signs Vital Sign Reading Time Taken Comments Blood Pressure 140/102 07/22/2022 12:38 PM CDT Pulse 98 07/22/2022 12:38 PM CDT Temperature 36.8 C (98.2 F) 10/08/2017 3:35 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 [employer] ARC Respiratory Rate 16 10/08/2017 3:35 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 [employer] Oxygen Saturation 97% 10/08/2017 3:35 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 [employer] ARC Inhaled Oxygen Concentration - - Weight 148.3 kg (327 lb) 07/22/2022 12:38 PM CDT Height 172.7 cm (5' 8) 07/22/2022 12:38 PM CDT Body Mass Index 49.72 07/22/2022 12:38 PM CDT Plan of Treatment Health Maintenance Due Date Last Done Comments Colorectal Cancer Screening Colonoscopy (10 Years) 1978 Kidney Health Evaluation 1978 Lipid Panel 1978 Annual Physical 1981 Diabetes: Retinopathy Eye Exam 1996 Hepatitis C 1996 DTaP, Tdap and Td Vaccines ( 1 - Tdap) 1997 Hepatitis B Vaccines (1 of 3 - 19+ 3-dose series) 1997 Pneumococcal Vaccine: Pediat rics (0 to 5 Years) and At-Risk Patients (6 to 49 Years) (1 of 2 - PCV) 1997 Hemoglobin A1C 01/21/2021 07/24/2020 COVID-19 Vaccine (2 - 2023-2 5 season) 2024 06/03/2021 Meningococcal B Vaccine Aged Out No l onger eligible based on patient's age to complete this topic Meningococcal Vaccine Aged Out No kristian sharon eligible based on patient's age to complete this topic RSV Immunizations Under 20 Months Aged Out No longer eligible based on patient's age to complete this topic Procedures Procedure Name Priority Date/Time Associated Diagnosis Comments HEMOGLOBIN, GLYCOSYLATED Routine 07/24/2020 from Last 3 Months or Most Recently Relevant to Health Maintenance Results * HEMOGLOBIN, GLYCOSYLATED (07/24/2020) HGB A1C 6.6 % 07/24/2020 [facility] Final Result from Last 3 Months or Most Recently Relevant to Health Maintenance Insurance CIGNA CIGNA Care Teams General Office Clerk Relationship Specialty Start Date End Date Pat Lucas MD [address] [place] [address] [place] [address] PCP - General FAMILY PRACTICE 07/05/22
--- OUTSIDE RECORDS SUMMARY | 2025-04-19 02:50 | XMS_ITS | Referral Summary ---
Author Organization [facility] [address] Address [address] [place] [address] Care Team Providers Care Bleach Packer Name Role Phone Pat Lucas MD Primary Care Provider + Allergies No known active allergies Medications atorvastatin (LIPITOR) 40 mg tablet Take 40 mg by mouth nightly 09/28/2021 Active FLUoxetine (PROzac) 40 mg capsule Take 40 mg by mouth nightly 09/28/2021 Active omeprazole (PriLOSEC) 20 mg capsule Take 20 mg by mouth nightly Active melatonin 10 mg tablet extended release Take 10 mg by mouth nightly Active HYDROcodone-meredith taminophen (NORCO) 5-325 mg per tabletIndicatio ns:Pain Take 1-2 tablets by mouth as needed for pain 1-2 tab q4-6 hr bottle states patient states Active ibuprofen (ibuprofen) 200 mg tab/cap Take 600 mg by mouth every 6 (six) hours as needed for pain Active HYDROcodone-meredith taminophen (NORCO) 5-325 mg per tabletIndicatio ns:Pain,post op pain Take 1-2 tablets by mouth every 6 (six) hours as needed for pain 42 tablet 10/15/2021 Active lisinopriL (PRINIVIL,ZESTR [place]) 10 mg tablet Take 1 tablet (10 mg total) by mouth daily for 20 days 20 tablet 10/16/2021 Active cyclobenzaprine (FLEXERIL) 10 mg tablet Take 1 tablet (10 mg total) by mouth 2 (two) times a day as needed for muscle spasms 12 tablet 10/17/2021 Active Active Problems Problem Noted Date Diagnosed Date Right wrist fracture, closed, initial encounter 10/05/2021 Fracture, Colles, right, closed 10/05/2021 Overview (10/05/2021): Added automatically from request for surgery [id number] Social History Tobacco Use Types Packs/Day Years Used Date Smoking Tobacco: Former Cigarettes 2 20 0 11/03/1992 - 11/03/2012 Smokeless Tobacco: Former Comments:CURRENTLY VAPES WIT H NICOTINE DAILY AUDIT-C Answer Date Recorded Q1: How often do you have a drink containing alc ohol? 2-4 times a month 10/11/2021 Q2: How many drinks containi ng alcohol do you have on a typical day when you are drinking? 10 or more 10/11/2021 Q3: How often do you have si x or more drinks on one occasion? Monthly 10/11/2021 Sex and Gender Information Value Date Recorded Sex Assigned at Not on file Legal Sex Male 7:43 AM CDT Gender Identity Not on file Sexual Orientation Not on file Last Filed Vital Signs Vital Sign Reading Time Taken Comments Blood Pressure 164/103 10/17/2021 12:20 AM LINE WELDER Pulse 97 10/17/2021 12:20 AM LINE WELDER Temperature 37.1 C (98.8 F) 10/16/2021 6:20 PM LINE WELDER Respiratory Rate 20 10/17/2021 12:2 0 AM LINE WELDER Oxygen Saturation 95% 10/17/2021 12: 20 AM LINE WELDER Inhaled Oxygen Concentration - - Weight 141.3 kg (311 lb 8.2 oz) 10/16/2021 6:20 PM LINE WELDER Height 172.7 cm (5' 8) 10/16/2021 6:20 PM LINE WELDER Body Mass Index 47.36 10/16/2021 6:20 PM LINE WELDER Plan of Treatment Not on file Medical Devices Implanted Type Area Live Hanger Device Identifier Shelf Expiration Date Model / Serial / Lot [employer] [id number] 3 Hole Anatomic Graft Window Radius Right Wrist Volar Standard - [id number] Implanted:Qty: 1 on 10/15/2021 by Jeferson Gonzalez MD at [facility] Right: Wrist [employer] [id number] / / [employer] [id number] Low Profile Screws 3.5mm 16mm Self Tap Solid Hexalobe Midfoot - [id number] Implanted:Qty: 2 on 10/15/2021 by Jeferson Gonzalez MD at [facility] Right: Wrist [employer] AR-8935-16 / / [employer] [id number] Screw Kreulock Compression Titanium 2.4x22mm - [id number] Implanted:Qty: 1 on 10/15/2021 by Jeferson Gonzalez MD at [facility] Right: Wrist [employer] AR-[id number]- 22 / / [employer] [id number] Screw Kreulock Compression Titanium 2.4x24mm - [id number] Implanted:Qty: 2 on 10/15/2021 by Jeferson Gonzalez MD at [facility] Right: Wrist [employer] AR-[id number]- 24 / / [employer] [id number] Screw Kreulock Compression Titanium 3.5x14mm - [id number] Implanted:Qty: 1 on 10/15/2021 by Jeferson Gonzalez MD at [facility] Right: Wrist [employer] AR-[id number]-1 4 / / Insurance COMMERCIAL GENERIC [facility] OPEN ACCESS Care Teams Bleach Packer Relationship Specialty Start Date End Date Pat Lucas MD [address] [place] [address] [address] [place] [address] PCP - General Family Medicine 10/08/21
--- OUTSIDE RECORDS SUMMARY | 2025-04-19 02:50 | XMS_ITS | Encounter Summary ---
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 No / Unsure 07/24/2022 1:37 PM CDT documented as of this encounter Plan of Treatment Not on file documented as of this encounter Visit Diagnoses Not on filedocumented in this encounter Care Teams Injection Moulding Machine Operator Relationship Specialty Start Date End Date Pat Lucas MD [address] [place] [address] [place] [id number] PCP - General FAMILY PRACTICE 07/05/22 documented as of this encounter
--- OUTSIDE RECORDS SUMMARY | 2025-04-19 02:50 | XMS_ITS | Patient Health Record ---
Author Organization [facility] Address [address] [place] [address] Care Team Providers Care Spanish Language Lecturer Name Role Phone Imelda Marquez Primary Care Provider Reason For Referral No Information Medications Medication SIG (Take, Route, Fr equency, Duration) Notes Start Date End Date Status PROzac 20 MG 1 capsule in the mor timothy Orally Once a day for 30 day(s) 11/21/2017 Active Omeprazole 20 MG 1 capsule Orally Onc e a day for 30 days Active Ambien 10 MG 1 tablet at bedtime as needed Orally Once a day Active PROzac 10 MG 1 capsule in the mor timothy Orally Once a day for 07 days 11/21/2017 Active Problems Problem Type SNOMED Code ICD Code Onset Dates Problem Status W/U Status Risk Notes Problem 727347982 Moderate episode of recurrent major depressive disorder (F33.1) Active confirmed Problem 074155722 Obesity (BMI 30-39.9) (E66.9) Active confirmed Problem 368871802 Insomnia, unspecified type (G47.00) Active confirmed Problem 878112152 GERD without esophagitis (K21.9) Active confirmed Problem 263597695 Obesity, morbid, BMI 40.0-49.9 (E66.01) Active confirmed Plan Of Treatment Future Test Test Name Order Date Drug Analysis, Unknown, Qual 01/07/2018 Insurance Providers Payer Name Payer Address Payer Phone Subscriber Number Group Number Insured Name Patient Relationship to Insured Coverage Start Date Coverage End Date [facility] [address] [address] [place] [address] [id number] Vijay Garcia Self - patient is the insured 5 Medical (General) History Surgical History Surgery Date(Month/Year) tonsillectomy 2009 apendectomy 2016
--- OUTSIDE RECORDS SUMMARY | 2025-04-19 02:50 | XMS_ITS | Encounter Summary ---
Author Organization [facility] Address [address] [place] [address] Care Team Providers Care Arterial Embalmer Name Role Phone Howard Mendez MD Primary Care Provider Pat Lucas MD Primary Care Provider [phone] Encounter Details Date Type Department Care Team ([facility] st Contact Info) Description 09/26/2020 Abstract [facility] at [address] [address] Gordo Ortega [place] Social History Tobacco Use Types Packs/Day Years Used Date Smoking Tobacco: Former Cigarettes Smokeless Tobacco: Never Alcohol Use Standard Drinks/Week Comments No 0 (1 standard drink = 0.6 oz pur e alcohol) Sex and Gender Information Value Date Recorded Sex Assigned at Not on file Legal Sex Male 7:13 PM CDT Gender Identity Not on file Sexual Orientation Not on file documented as of this encounter Plan of Treatment Not on file documented as of this encounter Procedures Procedure Name Priority Date/Time Associated Diagnosis Comments CBC (OUTSIDE LAB) Routine 07/24/2020 VITAMIN B-12 Routine 07/24/2020 FREE T3 Routine 07/24/2020 PROSTATE SPECIFIC ANTIGEN,TOTAL Routine 07/24/2020 COMPREHENSIVE METABOLIC PANEL Routine 07/24/2020 HEMOGLOBIN, GLYCOSYLATED Routine 07/24/2020 THYROXINE, FREE (FT4) Routine 07/24/2020 THYROID STIM HORMONE TSH Routine 07/24/2020 VITAMIN D, 25 OH Routine 07/24/2020 documented in this encounter Results * FREE T3 (07/24/2020) FREE T3 3.2 2.0 - 4.4 07/24/2020 [facility] Final Result * VITAMIN B-12 (07/24/2020) VITAMIN B12 S/P/B 437 232 - 1,245 07/24/2020 [facility] Final Result * VITAMIN D, 25 OH (07/24/2020) VITAMIN D 25 HYDROXY S/P/B 13.7 30 - 100 07/24/2020 [facility] Doc [facility] Final Result * THYROID STIM HORMONE, TSH (07/24/2020) TSH 3.020 0.45 - 4.500 07/24/2020 [facility] Final Result * THYROXINE, FREE (FT4) (07/24/2020) FREE T4 0.97 0.82 - 1.77 07/24/2020 us Doc [facility] Final Result * HEMOGLOBIN, GLYCOSYLATED (07/24/2020) HGB A1C 6.6 % 07/24/2020 us [facility] Final Result * PROSTATE SPECIFIC ANTIGEN,TOTAL (07/24/2020) PSA 0.7 07/24/2020 [facility] Final Result * COMPREHENSIVE METABOLIC PANEL (07/24/2020) POTASSIUM S/P/B 4.4 CO2 22 CHLORIDE S/P/B 102 GLUCOSE 121 mg/dL CALCIUM S/P/B 9.7 BUN 21 CREATININE S/P/B 1.05 0.7 - 1.3 ALKALINE PHOSPHATASE S/P/B 83 ALT 90 AST 42 BILIRUBIN TOTAL S/P/B 0.5 ALBUMIN S/P/B 4.8 3.5 - 5.0 TOTAL PROTEIN S/P/B 7.5 GLOBULIN 2.7 07/24/2020 [facility] Doc [facility] Final Result * CBC (OUTSIDE LAB) (07/24/2020) WBC 6.9 HGB 14.6 HCT 42.9 PLT 345 07/24/2020 [facility] LAB-OUTSIDE/ABSTRACTED Final Result documented in this encounter Visit Diagnoses Not on filedocumented in this encounter Care Teams Arterial Embalmer Relationship Specialty Start Date End Date Howard Mendez MD [facility] [address] [address] PCP - General INTERNAL MEDICINE 08/02/20 07/04/22 Pat Lucas MD [address] [place] [phone] PCP - General FAMILY PRACTICE 07/05/22 documented as of this encounter
--- OUTSIDE RECORDS SUMMARY | 2025-04-19 02:50 | XMS_ITS | Data Portability ---
Author Organization [facility] Andree WILSON Address [address] [place] [address] Care Team Providers Care Knife Setter Assembler Name Role Phone RUI HOLLINGSWORTH Primary Care Provider Unavailabl e Assessment No assessment recorded. Plan of Treatment Reminders Order Date Submit Date Provider Last Modified By Organization Details Last Modified Time Details Appointments None recorded. Lab lipid panel, serum 2019 020 DEXTER HOLT, [address] [place] [address], [facility] [address], [place], [address], 0 12:35:44 HbA1c (hemoglobi n A1c), blood 2019 020 DEXTER In-Office Order, Internal Use Only DO Not Attach Compendium DO Not Attach Compendium, Do Not Delete/merge, [id number] 10:27:33 microalbum in/creatin ine, mass ratio, urine 2019 020 DEXTER HOLT, [address] [place], [place] [address]christin Nate, [facility] [address], [place], [address], 0 12:35:44 CMP, serum or plasma 2019 020 DEXTER HOLT, [address] [place], [place] [address]christin Sullivan, [facility] [address], [place], [address], 0 12:35:45 CBC w/ auto diff 2019 020 DEXTER HOLT, [address] [place] [address], [address], [place], [address], 0 12:35:44 testostero ne, free + total, serum 2019 DEXTER HOLT, Mike Sullivan, [address], [place], [address], 0 12:35:44 vitamin D, 25-hydroxy , total, serum 2019 020 DEXTER LABJULIARP, Mike Sullivan, [address], [place], [address], 0 12:35:45 TSH + free T4, serum 2019 DEXTER HOLT, Mike Sullivan, [address], [place], [address], 0 12:35:45 CMP, serum or plasma 2019 DEXTER HOLT, Mike Sullivan, [address], [place], [address], 0 14:41:15 CBC w/ auto diff 2019 DEXTER HOLT, Mike Sullivan, [address], [place], [address], 0 14:41:14 lipid panel, serum 2019 DEXTER LABROSALINDA, Mike Sullivan, [address], [place], [address], 0 14:41:14 HbA1c (hemoglobi n A1c), blood 2019 DEXTER In-Office Order, Internal Use Only DO Not Attach Compendium DO Not Attach Compendium, Do Not Delete/merge, [id number] 0 15:25:55 microalbum in/creatin ine, mass ratio, urine 2019 020 DEXTER HOLT, Mike Sullivan, [address], [place], [address], 0 14:41:14 uric acid, serum or plasma 2018 019 DEXTER HOLT, Mike Sullivan, [address], [place], [address], 9 06:15:28 HbA1c (hemoglobi n A1c), blood 2018 019 herson In-Office Order, Internal Use Only DO Not Attach Compendium DO Not Attach Compendium, Do Not Delete/merge, [id number] 9 23:08:48 lipid panel, serum 2018 019 DEXTER HOLT, Mike Sullivan, [address], [place], [address], 9 06:15:28 CMP, serum or plasma 2018 019 DEXTER HOLT, Mike Sullivan, [address], [place], [address], 9 06:15:27 vitamin B12 + folate, serum or blood 2017 018 DEXTER HOLT, Mike Sullivan, [address], [place], [address], 8 07:13:39 vitamin D, 25-hydroxy , total, serum 2017 018 DEXTER HOLT, Mike Sullivan, [address], [place], [address], 8 07:13:40 HbA1c (hemoglobi n A1c), blood 2017 018 [facility], [address] [facility] [address], [address], [place], [address], 8 07:13:39 lipid panel, serum 2017 018 [facility], [address] [facility] [address], [address], [place], [address], 8 07:13:38 CMP, serum or plasma 2017 018 [facility], [address] [facility] [address], [address], [place], [address], 8 07:13:38 Referral orthopedic referral - Please call and schedule patient an appointmen t, please provide consult note after inital visit. Thank you! 2018 019 mayra Boone MD, [address] [place] [address] [address], [place], [address], 0 14:47:06 dermatolog ist referral 2017 018 [facility] Not available 8 17:28:41 Procedures None recorded. Surgeries None recorded. Imaging US, echocardio gram, transthora cic, complete, w/ color flow 2018 019 [facility], [facility] [address], [place], [address], 9 09:44:26 XR, knee, 3 view 2018 019 [facility], [facility] [address], [place], [address], 9 09:50:47 US, echocardio gram [email or web address] [place] [address], [address] [facility] [address], [place], [address], 9 18:08:53 US, echocardio gram 2017 018 [facility], [address], [place], [address], 8 13:10:15 Medication Orders lisinopril 10 mg-hydroch lorothiazi de 12.5 mg tablet 2019 020 [facility]668, [address], [place], [place], [id number], 0 14:41:06 metformin 500 mg tablet 2019 020 [facility]54978, [address], [place], [place], [id number], 0 15:13:18 Refresh Tears 0.5 % eye drops 2019 020 [facility] #03125, [address] , [place], [place], [id number], 0 15:16:46 omeprazole 20 mg capsule,de layed release 2018 019 [facility] #20855, [address] , [place], [place], [id number], 9 17:18:51 atorvastat in 40 mg tablet 2018 019 [facility] #61737, [address] , [place], [place], [id number], 9 17:18:51 fluoxetine 40 mg capsule 2018 019 [facility] #02016, [address], [place], [place], [id number], 9 17:18:52 Vitamin D3 125 mcg (5,000 unit) tablet 2018 019 [facility] #07216, [address] , [place], [place], [id number], 9 17:16:43 fluoxetine 40 mg capsule 2018 019 [email or web address] [facility] #63765, [address] [facility], [place], [place], [id number], 9 23:08:48 Belsomra 10 mg tablet 2017 018 [email or web address] [facility] #29861, [address] [facility], [place], [place], [id number], 8 17:07:26 Patient TargetsNo targets recorded. Patient Instructions Encounter Date Encounter Id Patient Instructions Last Modified By Organization Details Last Modified Time 04/10/2018 [id number] A healthy lifestyle: care instructions [email or web address] Not available 04/10/2018 16:09:34 05/03/2019 [id number] A healthy lifestyle: care instructions [email or web address] Not available 05/03/2019 23:08:48 04/03/2020 [id number] split night slee p study* [email or web address] Not available 04/03/2020 14:36:35 Reason for Referral [employer] Referral for M ultiple skin tags Referring Physician: [facility], Encounter Date: 04/10/2018 Orthopedic Referral for Pain in right knee Please call and schedule patient an appointment, please provide consult note after inital visit. Thank you! Referring Physician: [facility], Encounter Date: 06/18/2019 Results Created Date Observation Date Name Description Value Unit Range Abnormal Flag Note LastModifiedBy Organization Detail LastModifiedTime 04/10/20 18 04/11/2018 CMP, serum or plasm a glucose 114 mg/dL 65-99 above high normal Not Available [facility] ([facility]) [address] [place], [address], 04/11/2018 07:13:38 04/10/20 18 04/11/2018 CMP, serum or plasm a BUN 22 mg/dL 6-20 above high normal Not Available [facility] ([facility]) [address] [place], [address], 04/11/2018 07:13:38 04/10/20 18 04/11/2018 CMP, serum or plasm a creatinine 1.03 mg/dL 0.76-1 .27 Not Available [facility] ([facility]) [address] [facility] [place], [address], 04/11/2018 07:13:38 04/10/20 18 04/11/2018 CMP, serum or plasm a eGFR if nonafricn AM 91 mL/mi n/1.7 3 >59 Not Available [facility] ([facility]) [address] [facility] [place], [address], 04/11/2018 07:13:38 04/10/20 18 04/11/2018 CMP, serum or plasm a eGFR if africn AM 105 mL/mi n/1.7 3 >59 Not Available [facility] ([facility]) [address] [facility] [place], [address], 04/11/2018 07:13:38 04/10/20 18 04/11/2018 CMP, serum or plasm a BUN/creatini ne ratio 21 9-20 above high normal Not Available [facility] ([facility]) [address] [place], [address], 04/11/2018 07:13:38 04/10/20 18 04/11/2018 CMP, serum or plasm a sodium 141 mmol/ L 134-14 4 Not Available [facility] ([facility]) [address] [place], [address], 04/11/2018 07:13:38 04/10/20 18 04/11/2018 CMP, serum or plasm a potassium 4.3 mmol/ L 3.5-5. 2 Not Available [facility] ([facility]) [address] [place] [address], [address], 04/11/2018 07:13:38 04/10/20 18 04/11/2018 CMP, serum or plasm a chloride 101 mmol/ L 96-106 Not Available [facility] ([facility]) [address] [place], [address], 04/11/2018 07:13:38 04/10/20 18 04/11/2018 CMP, serum or plasm a carbon dioxide, total 21 mmol/ L Eff ectiv e April 13, 2018 Carbo n Dioxi de, Total refer ence inter del will be cha ing to: Age Male Femal e 0 days - 30 days 16 - 29 16 - 29 31 days - 1 year 15 - 25 15 - 25 2 years - 5 years 17 - 26 17 - 26 6 years - 12 years 19 - 27 19 - 27 >12 years 20 - 29 20 - 29 Not Available [facility] ([facility]) [address] [place], [address], 04/11/2018 07:13:38 04/10/20 18 04/11/2018 CMP, serum or plasm a calcium 9.8 mg/dL 8.7-10 .2 Not Available [facility] ([facility]) [address] [place], [address], 04/11/2018 07:13:38 04/10/2004/11/2018 CMP, serum or plasm a protein, total 7.4 g/dL 6.0-8. 5 Not Available [facility] ([facility]) [address] [place], [address], 04/11/2018 07:13:38 04/10/2004/11/2018 CMP, serum or plasm a albumin 4.8 g/dL 3.5-5. 5 Not Available [facility] ([facility]) [address] [place], [address], 04/11/2018 07:13:38 04/10/2004/11/2018 CMP, serum or plasm a globulin, total 2.6 g/dL 1.5-4. 5 Not Available [facility] ([facility]) [address] [place], [address], 04/11/2018 07:13:38 04/10/20 18 04/11/2018 CMP, serum or plasm a A/G ratio 1.8 1.2-2. 2 Not Available [facility] ([facility]) [address] [facility] [place], [address], 04/11/2018 07:13:38 04/10/20 18 04/11/2018 CMP, serum or plasm a bilirubin, total 0.5 mg/dL 0.0-1. 2 Not Available [facility] ([facility]) [address] [facility] [place], [address], 04/11/2018 07:13:38 04/10/20 18 04/11/2018 CMP, serum or plasm a alkaline phosphatase 73 IU/L 39-117 Not Available [facility]) [address] [facility] [place], [address], 04/11/2018 07:13:38 04/10/20 18 04/11/2018 CMP, serum or plasm a AST (SGOT) 20 IU/L 0-40 Not Available [facility] ([facility]) [address] [facility] [place], [address], 04/11/2018 07:13:38 04/10/20 18 04/11/2018 CMP, serum or plasm a ALT (SGPT) 42 IU/L 0-44 Not Available [facility] ([facility]) [address] [facility] [place], [address], 04/11/2018 07:13:38 04/10/20 18 04/11/2018 lipid panel , serum cholesterol, total 280 mg/dL 100-19 9 above high normal Not Available [facility] ([facility]) [address] [facility] [place], [address], 04/11/2018 07:13:38 04/10/20 18 04/11/2018 lipid panel , serum triglyceride s 203 mg/dL 0-149 above high normal Not Available [facility] ([facility]) [address] [facility], [place], [address], 04/11/2018 07:13:38 04/10/20 18 04/11/2018 lipid panel , serum HDL cholesterol 31 mg/dL >39 below low normal Not Available [facility] ([facility]) [address] [facility] [place], [address], 04/11/2018 07:13:38 04/10/20 18 04/11/2018 lipid panel , serum VLDL cholesterol michelle 41 mg/dL 5-40 above high normal Not Available [facility] ([facility]) [address] [facility] [place], [address], 04/11/2018 07:13:38 04/10/20 18 04/11/2018 lipid panel , serum LDL cholesterol calc 208 mg/dL 0-99 above high normal Not Available [facility] ([facility]) [address] [facility], [place], [address], 04/11/2018 07:13:38 04/10/20 18 04/11/2018 lipid panel , serum comment: COMMEN T Possi ble Famil ial Hyper denise stero lemia . janeth bartlett be suspe cted when fasti ng LDL denise stero l is above 189 mg/dL or non-H DL denise stero l is above 219 mg/dL . A famil y histo ry of high denise stero l and heart disea se in 1st degre e relat raissavinayak bartlett be colle cted. J Clin Lipid ol 2011; 5:133 -140 Not Available [facility] ([facility]) [address] [facility], [place], [address], 04/11/2018 07:13:38 04/10/20 18 04/11/2018 vitam in B12 + folat e, serum or blood vitamin B12 414 pg/mL 232-12 45 Not Available [facility] ([facility]) [address] [facility], [place], [address], 04/11/2018 07:13:39 04/10/20 18 04/11/2018 vitam in B12 + folat e, serum or blood folate (folic acid), serum 5.1 NG/mL >3.0 A serum folat e fabiano ntrat ion of less than 3.1 ng/mL is consi dered to repre sent clini michelle defic iency . Not Available [facility] ([facility]) [address] [facility], [place], [address], 04/11/2018 07:13:39 04/10/20 18 04/11/2018 HbA1c (hemo globi n A1c), blood hemoglobin A1C 5.8 % 4.8-5. 6 above high normal Pre-d iabet es: 5.7 - 6.4 Diabe jac: >6.4 Glyce aleksandra contr ol for adult s with diabe jac: <7.0 Not Available [facility] ([facility]) [address] [facility], [place], [address], 04/11/2018 07:13:39 04/10/20 18 04/11/2018 vitam in D, 25-hy droxy , total , serum vitamin D, 25-hydroxy 15.7 NG/mL 30.0-1 00.0 below low normal Vitam in D defic iency has been defin ed by the Insti tute of Medic ine and an Endoc rine Socie ty pract ice guide line as a level of serum 25-OH vitam in D less than 20 ng/mL (1,2) . The Endoc rine Socie ty went on to furth er defin e vitam in D insuf ficie ncy as a level betwe en 21 and 29 ng/mL (2). 1. IOM (Inst itute of Medic ine). 2010. Dieta ry refer ence intak es for calci um and D. Kevin clark DC: The [facility] Press . 2. Cecilia carbone MF, Paulette ey [place], Ramiro off-F errar i SORIANO, et al. Evalu ation , treat ment, and preve ntion of vitam in D defic iency : an Endoc rine Socie ty clini michelle pract ice guide line. JCEM. 2010; 96(9) :1911 -30. Not Available [facility] ([facility]) [address] [place], [address], 04/11/2018 07:13:40 05/03/20 19 05/04/2019 CMP, serum or plasm a glucose 110 mg/dL 65-99 above high normal Not Available [facility] ([facility]) [address] [facility] [place], [address], 05/04/2019 06:15:27 05/03/2005/04/2019 CMP, serum or plasm a BUN 18 mg/dL 6-24 Not Available [facility] ([facility]) [address] [facility] [place], [address], 05/04/2019 06:15:27 05/03/20 19 05/04/2019 CMP, serum or plasm a creatinine 0.92 mg/dL 0.76-1 .27 Not Available [facility] ([facility]) [address] [facility] [place], [address], 05/04/2019 06:15:27 05/03/2005/04/2019 CMP, serum or plasm a eGFR if nonafricn AM 104 mL/mi n/1.7 3 >59 Not Available [facility] ([facility]) [address] [facility] [place], [address], 05/04/2019 06:15:27 05/03/2005/04/2019 CMP, serum or plasm a eGFR if africn AM 120 mL/mi n/1.7 3 >59 Not Available [facility] ([facility]) [address] [facility] [place], [address], 05/04/2019 06:15:27 05/03/2005/04/2019 CMP, serum or plasm a BUN/creatini ne ratio 20 9-20 Not Available [facility] ([facility]) [address] [facility] [place], [address], 05/04/2019 06:15:27 05/03/2005/04/2019 CMP, serum or plasm a sodium 138 mmol/ L 134-14 4 Not Available [facility] ([facility]) [address] [facility] [place], [address], 05/04/2019 06:15:27 05/03/2005/04/2019 CMP, serum or plasm a potassium 4.2 mmol/ L 3.5-5. 2 Not Available [facility] ([facility]) [address] [facility] [place], [address], 05/04/2019 06:15:27 05/03/2005/04/2019 CMP, serum or plasm a chloride 100 mmol/ L 96-106 Not Available [facility] ([facility]) [address] [facility] [place], [address], 05/04/2019 06:15:27 05/03/2005/04/2019 CMP, serum or plasm a carbon dioxide, total 23 mmol/ L 20-29 Not Available [facility] ([facility]) [address] [facility] [place], [address], 05/04/2019 06:15:27 05/03/2005/04/2019 CMP, serum or plasm a calcium 9.6 mg/dL 8.7-10 .2 Not Available [facility] ([facility]) [address] [facility] [place], [address], 05/04/2019 06:15:27 05/03/2005/04/2019 CMP, serum or plasm a protein, total 7.5 g/dL 6.0-8. 5 Not Available [facility] ([facility]) [address] [facility] [place], [address], 05/04/2019 06:15:27 05/03/2005/04/2019 CMP, serum or plasm a albumin 4.7 g/dL 3.5-5. 5 Not Available [facility] ([facility]) [address] [facility] [place], [address], 05/04/2019 06:15:27 05/03/2005/04/2019 CMP, serum or plasm a globulin, total 2.8 g/dL 1.5-4. 5 Not Available [facility] ([facility]) [address] [facility] [place], [address], 05/04/2019 06:15:27 05/03/2005/04/2019 CMP, serum or plasm a A/G ratio 1.7 1.2-2. 2 Not Available [facility] ([facility]) [address] [facility] [place], [address], 05/04/2019 06:15:27 05/03/2005/04/2019 CMP, serum or plasm a bilirubin, total 0.3 mg/dL 0.0-1. 2 Not Available [facility] ([facility]) [address] [facility] [place], [address], 05/04/2019 06:15:27 05/03/2005/04/2019 CMP, serum or plasm a alkaline phosphatase 76 IU/L 39-117 Not Available [facility]) [address] [facility] [place], [address], 05/04/2019 06:15:27 05/03/2005/04/2019 CMP, serum or plasm a AST (SGOT) 28 IU/L 0-40 Not Available [facility] ([facility]) [address] [facility] [place], [address], 05/04/2019 06:15:27 05/03/2005/04/2019 CMP, serum or plasm a ALT (SGPT) 55 IU/L 0-44 above high normal Not Available [facility] ([facility]) [address] [facility] [place], [address], 05/04/2019 06:15:27 05/03/2005/04/2019 lipid panel , serum cholesterol, total 267 mg/dL 100-19 9 above high normal Not Available [facility] ([facility]) [address] [facility] [place], [address], 05/04/2019 06:15:28 05/03/2005/04/2019 lipid panel , serum triglyceride s 426 mg/dL 0-149 above high normal Not Available [facility] ([facility]) [address] [facility] [place], [address], 05/04/2019 06:15:28 05/03/2005/04/2019 lipid panel , serum HDL cholesterol 36 mg/dL >39 below low normal Not Available [facility] ([facility]) [address] [facility], [place], [address], 05/04/2019 06:15:28 05/03/2005/04/2019 lipid panel , serum VLDL cholesterol michelle COMMEN T mg/dL 5-40 The calcu latio n for the VLDL denise stero l is not valid when trigl yceri de level is >400 mg/dL . Not Available [facility] ([facility]) [address] [facility] [place], [address], 05/04/2019 06:15:28 05/03/2005/04/2019 lipid panel , serum LDL cholesterol calc COMMEN T mg/dL 0-99 Trigl yceri de resul t indic ated is too high for an accur ate LDL denise stero l estim ation . Not Available [facility] (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) [address] [facility], [place], [address], 05/04/2019 06:15:28 05/03/2005/04/2019 uric acid, serum or plasm a uric acid 6.8 mg/dL 3.7-8. 6 Tania aguilar for gout patie nts: <6.0 Not Available [facility] ([facility]) [address] [facility], [place], [address], 05/04/2019 06:15:28 05/03/20 19 05/03/2019 HbA1c (hemo globi n A1c), blood HbA1c 6.4 Not Available In-Office Order Internal Use Only DO Not Attach Compendium DO Not Attach Compendium, Do Not Delete/merge, [id number] 05/03/2019 15:30:15 02/08/20 20 02/08/2020 HbA1c (hemo globi n A1c), blood HbA1c 6.6 Not Available In-Office Order Internal Use Only DO Not Attach Compendium DO Not Attach Compendium, Do Not Delete/merge, [id number] 02/08/2020 14:40:32 09/30/20 21 09/30/2021 XR, hand No observ ation record ed. [facility] [address], [place], [address], 10/01/2021 10:40:40 Result Notes None recorded. Problems Name Problem SNOMED Code Status Onset Date Resolution Date Notes Provider Name and Address Organization Details Recorded Time Dyspnea 562947129 Active Gloria Rivera PA-C Attn: Accounting ,[address] [place], [address] , [place] - [facility] 5 13:10:26 Vitamin D deficien cy 82289202 Active Gloria Rivera PA-C Attn: Accounting ,[address] [place], [address] , [place] - [facility] 5 16:13:53 Diabetes mellitus 99482813 Active Gloria Rivera PA-C Attn: Accounting ,[address] [facility], [place], [address] , [place] [facility] 6 12:18:05 [facility] hyperten phil 09666828 Active Gloria Rivera PA-C Attn: Accounting ,[address] [facility], [place], [place], [address] [place] [address] , [facility] 6 12:18:05 Opioid dependen ce, on agonist therapy 87685422651 05 Active history of opiate - oxy and vicodin - relapsed early 2017 Gloria Rivera PA-C Attn: Accounting ,[address] [facility], [place], [place], [address] [place] [address] , [facility] 7 10:39:30 Depressi ve disorder 00939108 Active Gloria Rivera PA-C Attn: Accounting ,[address] [facility], [place], [address] [place] [address] , [facility] 5 16:13:53 Hyperlip idemia 85438278 Active Gloria Rivera PA-C Attn: Accounting ,[address] [facility], [place], [address] [place] [address] , [facility] 5 16:13:53 Generali zed anxiety disorder 21001427 Active followee d by Dr. Kassandra Rivera PA-C Attn: Accounting ,[address] [facility], [place], [place], [address] [place] [address] , [facility] 6 09:38:51 Hypothyr oidism 11244134 Active Gloria Rivera PA-C Attn: Accounting ,[address] [facility], [place], [address] [place] [address] , [facility] 5 16:13:53 Insomnia 605590395 Active Gloria Rivera PA-C Attn: Accounting ,[address] [facility], [place], [address] [place] [address] , [facility] 5 16:13:53 Obesity 063648349 Active Gloria Rivera PA-C Attn: Accounting ,[address] [facility], [place], [address] [place] [address] , [facility] 6 12:18:05 Increase d frequenc y of urinatio n 403618193 Active Gloria Rivera PA-C Attn: Accounting ,[address] [facility], [place], [place], [address] [place] [address] , [place] [facility] 6 12:18:05 Urinary tract infectio us disease 98049658 Completed 02/08/2020 PATTI AU Attn: Accounting ,[address] [facility], [place], [address] , [place] [facility] 0 14:23:18 Noncompl iance with treatmen t 9778905 Active 2016 Gloria Rivera PA-C Attn: Accounting ,[address] [facility], [place], [address] [place] [address] , [facility] 7 12:25:23 Harmful pattern of use of opioid 8203828 Active 2016 Gloria Rivera PA-C Attn: Accounting ,[address], [place], [address] [place] [address] , [facility] 7 12:33:07 Gastroes ophageal reflux disease 172278949 Active 2016 Gloria Rivera PA-C Attn: Accounting ,[address] [place], [address] , [facility] 7 14:12:28 Increase d liver function 41858023 Active 2016 Gloria Rivera PA-C Attn: Accounting ,[address] [place], [address] , [facility] 7 12:10:30 Verruca vulgaris 46534799 Active 2016 Gloria Rivera PA-C Attn: Accounting ,[address] [place], [address] , [place] [facility] 7 13:09:34 Problem Notes None recorded. Procedures Surgical History Date Name Laterality Status Provider Name and Address Organization Details Recorded Time 0 Tonsillectomy completed Pauline Li MA [place] - [facility] 10/11/2015 15:52:05 Imaging Results None recorded. Procedure Notes None recorded. Medical Equipment None Reported. Allergies No known drug allergies Medications Name Sig Start Date Stop Date Status Note LastModified by Organization Details LastModified Time vitamin d 25768 unit caps 10/11 completed Not Available Not Available Not Available zolpidem tartrate 10 mg tabs 10/11 completed Not Available Not Available Not Available bupropion hcl sr 150 mg tb12 10/11 completed Not Available Not Available Not Available quetiapine fumarate 50 mg tabs 10/11 completed Not Available Not Available Not Available quetiapine fumarate 100 mg tabs 10/11 completed Not Available Not Available Not Available propranolol hcl 10 mg tabs 10/11 completed Not Available Not Available Not Available paroxetine hcl 20 mg tabs 10/11 completed Not Available Not Available Not Available levothyroxi ne sodium 25 mcg tabs 10/11 completed Not Available Not Available Not Available Refresh Tears 0.5 % eye drops Apply 1 drop by ophthalmi c route as needed. active Not Available Not Available No t Available fluoxetine 40 mg capsule TAKE 1 CAPSULE BY MOUTH EVERY DAY 2019 active Not Available Not Available Not Avai lable atorvastati n 40 mg tablet TAKE 1 TABLET BY MOUTH EVERY DAY IN THE EVENING 2019 active Not Available Not Available Not Avai lable metformin 500 mg tablet Take 1 tablet twice a day by oral route for 30 days. active Not Available Not Available No t Available bupropion HCl SR 150 mg tablet,12 hr sustained-r elease Take 1 tablet every day by oral route. 03/19 completed Not Available Not Available Not Available doxycycline hyclate 100 mg capsule 02/07 completed Not Available Not Available Not Available paroxetine 10 mg tablet Take 1 tablet every day by oral route. 12/12 completed Not Available Not Available Not Available atorvastati n 10 mg tablet TAKE 1 TABLET BY MOUTH EVERY DAY AT BEDTIME 06/18 completed Not Available Not Available Not Available azithromyci n 250 mg tablet 05/03 completed Not Available Not Available Not Available benzonatate 200 mg capsule 03/19 completed Not Available Not Available Not Available hydrocodone 5 mg-acetamin ophen 325 mg tablet 03/19 completed Not Available Not Available Not Available lisinopril 20 mg tablet TAKE 1 TABLET BY MOUTH DAILY 04/02 completed Not Available Not Available Not Available prednisone 20 mg tablet 02/07 completed Not Available Not Available Not Available metronidazo le 500 mg tablet 03/19 completed Not Available Not Available Not Available hydroxyzine HCl 50 mg tablet Take 1 tablet every day by oral route at bedtime. 04/10 completed Not Available Not Available Not Available sulfamethox azole 800 mg-trimetho prim 160 mg tablet 03/19 completed Not Available Not Available Not Available quetiapine 100 mg tablet Take 1 tablet every day by oral route at bedtime. 03/19 completed Not Available Not Available Not Available levothyroxi ne 25 mcg tablet Take 1 tablet every day by oral route. 03/19 completed Not Available Not Available Not Available propranolol 10 mg tablet Take 1 tablet twice a day by oral route. 03/19 completed Not Available Not Available Not Available tamsulosin 0.4 mg capsule 03/19 completed Not Available Not Available Not Available trazodone 100 mg tablet 12/12 completed Not Available Not Available Not Available benzonatate 100 mg capsule active Not Available Not Available Not Available paroxetine 20 mg tablet 12/12 completed Not Available Not Available Not Available fluoxetine 10 mg capsule 01/05 completed Not Available Not Available Not Available omeprazole 20 mg capsule,del ayed release Take 1 capsule every day by oral route. active Not Available Not Available No t Available hydrocortis one 2.5 % topical cream APPLY A THIN LAYER TO THE AFFECTED AREA(S) BY TOPICAL ROUTE 2 TIMES PER DAY FOR 14 DAYS MAX 01/05 completed Not Available Not Available Not Available ergocalcife rol (vitamin D2) 1,250 mcg (50,000 unit) capsule Take 1 capsule every week by oral route. 05/03 completed Not Available Not Available Not Available lisinopril 10 mg-hydrochl orothiazide 12.5 mg tablet Take 1 tablet every day by oral route. active Not Available Not Available No t Available zolpidem 10 mg tablet Take 1 tablet every day by oral route at bedtime. 01/05 completed Not Available Not Available Not Available albuterol sulfate HFA 90 mcg/actuati on aerosol inhaler active Not Available Not Available Not Available fluoxetine 20 mg capsule TAKE 1 CAPSULE BY MOUTH EVERY DAY 06/18 completed Not Available Not Available Not Available metformin ER 500 mg tablet,exte nded release 24 hr Take 1 tablet every day by oral route. 03/19 completed Not Available Not Available Not Available amoxicillin 875 mg-potassiu m clavulanate 125 mg tablet 03/19 completed Not Available Not Available Not Available quetiapine 50 mg tablet 03/19 completed Not Available Not Available Not Available Seroquel XR 150 mg tablet,exte nded release 12/12 completed Not Available Not Available Not Available Vitamin D3 125 mcg (5,000 unit) tablet Take 1 tablet every day by oral route. 2018 active Not Available Not Available Not Avai lable Suboxone 4 mg-1 mg sublingual film 12/12 completed Not Available Not Available Not Available Zubsolv 5.7 mg-1.[address] 0.5 tablets every day by sublingua l route. 12/12 completed Not Available Not Available Not Available Belsomra 10 mg tablet Take 1 tablet every day by oral route at bedtime. 04/13 completed Not Available Not Available Not Available Belsomra 20 mg tablet TAKE 1 TABLET BY MOUTH EVERY DAY AT BEDTIME 05/03 completed Not Available Not Available Not Available Vitals Date Recorded Systolic blood pressure Diastolic blood pressure Provider Name and Address Organization Details Last Updated DateTime 02/08/2020 138 mm[Hg] 100 mm[Hg] PATTI AU Attn: [employer],[address] [place], [address], [facility] 02/09/2020 10:07:37 Date Recorded Body height Body mass index (BMI) Body weight Body temperature Heart rate Oxygen saturation Oxygen saturation in Arterial blood by Pulse oximetry Provider Name and Address Organization Details Last Updated DateTime 0 172.72 cm 45.5 kg/m2 912341. 12 g 98.6 [degF] 116 /min 98 % 98 % Jelena Sheriff MA [facility] 0 14:21:53 Date Recorded Body height Provider Name an d Address Organization Details Last Updated DateTime 04/03/2020 172.72 cm Mee Euceda MA [facility] 04/03/2020 12:19:22 Date Recorded Body height Body mass index (BMI) Body weight Oxygen saturation Oxygen saturation in Arterial blood by Pulse oximetry Heart rate Body temperature Systolic blood pressure Diastolic blood pressure Provider Name and Address Organization Details Last Updated DateTime 8 172.72 cm 40.4 kg/m2 540958. 57 g 97 % 97 % 92 /min 98.5 [degF] 116 mm[Hg] 74 mm[Hg] Anitra Aguilar CMA [facility] 8 10:08:28 Date Recorded Body height Heart rate Oxygen saturation Oxygen saturation in Arterial blood by Pulse oximetry Body temperature Body mass index (BMI) Body weight Systolic blood pressure Diastolic blood pressure Provider Name and Address Organization Details Last Updated DateTime 9 172.72 cm 90 /min 97 % 97 % 99.4 [degF] 44.2 kg/m2 273061. 38 g 140 mm[Hg] 98 mm[Hg] Mee Euceda MA [facility] 9 15:33:12 Date Recorded Body height Body mass index (BMI) Body weight Oxygen saturation Oxygen saturation in Arterial blood by Pulse oximetry Heart rate Body temperature Systolic blood pressure Diastolic blood pressure Provider Name and Address Organization Details Last Updated DateTime 9 172.72 cm 43.5 kg/m2 392459. 82 g 95 % 95 % 112 /min 98.7 [degF] 136 mm[Hg] 82 mm[Hg] Yadira Campbell MA [facility] 9 16:51:21 Social History Question Answer Notes LastModified by Organizat ion Details LastModified Time Tobacco Smoking Status Former Smoker Mee Euceda MA [facility], [facility] 04/03/2020 12:19:42 Do You Have An Advance Directive? No [email or web address] Information not available 10/11/2015 What Is Your Level Of Caffeine Consumption? Occasional Information not available 10/11/2015 How Much Tobacco Do You Chew? None [email or web address] Information not available 10/11/2015 What Type Of Diet Are You Following? REGULAR [email or web address] Information not available 10/11/2015 Which Illicit Or Recreational Drugs Have You Used? 0 [email or web address] Information not available 10/11/2015 Are There Any Guns Present In Your Home? No [email or web address] Information not available 10/11/2015 Hard Of Hearing Or Deaf In One Or Both Ears? No [email or web address] Information not available 10/11/2015 Legally Blind In One Or Both Eyes? No [email or web address] Information no t available 10/11/2015 Live Alone Or With Others? With Others [email or web address] Information not available 10/11/2015 What Was The Date Of Your Most Recent Tobacco Screening? 04/03/2020 Information not available 04/03/2020 How Many Children Do You Have? 1 [email or web address] Information not available 10/11/2015 Do You Use Protection During Sex? Always [email or web address] Information not available 10/11/2015 Seat Belts Used Routinely Yes [email or web address] Information not available 10/11/2015 Are You Sexually Active? Yes [email or web address] Information not available 10/11/2015 Smoke Alarm In Home Yes [email or web address] Information not available 10/11/2015 At What Age Did You Start Smoking Tobacco? 16 [email or web address] Information not available 10/11/2015 Are You Passively Exposed To Smoke? Yes Information no t available 10/11/2015 How Much Tobacco Do You Smoke? 1 PPD [email or web address] Information not available 06/18/2019 General Stress Level Low Information not available 10/11/2015 Has Tobacco Cessation Counseling Been Provided? Yes Information not available 05/03/2019 On What Date Was Tobacco Cessation Counseling Provided? 04/03/2020 Information not available 04/03/2020 How Many Years Have You Smoked Tobacco? 15 [email or web address] Information not available 10/11/2015 Sex: Unknown Functional Status Question Answer Note LastModified by Organizat ion Details LastModified Time What is your level of alcohol consumption? None [email or web address] Information not available 10/11/2015 Do you or have you ever used smokeless tobacco? Never used [email or web address] tobacco Information not available 04/03/2020 Are you able to care for yourself? Yes Information not available 10/11/2015 Do you or have you ever used e-cigarettes or vape? Current user of electronic cigarettes Vapes Information not available 04/03/2020 What is your exercise level? None [email or web address] Information not available 10/11/2015 Mental Status None recorded. Family History Relationship Description Onset Age of this Age Resolved Age Notes LastModified by Organization Details LastModified Time Mother Malignant tumor of breast [email or web address] Not available 2015 11:32:15 Mother Depressive disorder Not available 2015 11:32:15 Medical History Condition Response Coronary Artery Disease N Other N Atrial Fibrillation N High Blood Pressure Y Depression N COPD N Blood Clots N Anxiety Disorder N Muscle, Joint, or Bone Problems N Acid Reflux (GERD) Y Cancer N Stroke N High Cholesterol Y Liver Disease N Headaches N Kidney or Bladder Problems N Thyroid Problems Y GI Problems N Skin Problems N Anemia N Heart Attack (NH) N Diabetes Y Seizures/Epilepsy N Asthma N Allergies N Hepatitis N Heart Failure N Osteoporosis N Past Encounters Encounter ID Performer Location Encounter Start Date Encounter Closed Date Diagnosis/Indication Diagnosis SNOMED-CT Code Diagnosis ICD10 Code Diagnosis Note [id number] MD Dee Jack (Adult Med) [address] [place] [address] 10/11/2015 15:15:23 10/13/2015 13:11:16 Dyspnea 563737316 R06.00 Diabetes mellitus 666502 09 E11.9 Obesity 535598212 E66.9 Goal 5 lbs in the next month walking 15 minutes/da y Opioid dep endence, on agonist therapy 2850437407 105 F11.21 WIll let psych manage all psych drugs [id number] MD Dee Johns (Adult Med) [address] [place] [address] 12/12/2015 14:48:33 12/12/2015 16:22:29 Generalized anxiety disorder 56131785 F41.1 Diabetes mellitus 520767 09 E11.9 Continue on metforomin Essential hypertension 94667569 I10 WIll begin on lisinopril for BP RTC 1 week Increased frequency of urination 720908467 R35.0 UA was positive for nitrites - patient is currently taking Bactrim Will not give patient pain medication d/t hx/o opiod abuse Patient advised that if he develops n/v/fever/ chills to go to the ED - likely kidney stone that needs to be passed vs UTI Obesity 379704764 E66.9 Gained 3lbs - discussed he needs to drink more water and become more active [id number] MD Dee Johns (Adult Med) [address] [place] [phone] 12/19/2015 11:04:11 12/19/2015 12:18:55 Diabetes mellitus 79344363 E11.9 Continue on metformin Advised to take with dinner Essential hypertension 88268837 I10 Continue propranolo l and lisinopril Increased frequency of urination 123920355 R35.0 Resolved Appointmen t with urology today Obesity 789732159 E66.9 Down 6lbs - discussed he needs to drink more water and become more active [id number] MD Dee Johns (Adult Med) [address] [place] [phone] 03/19/2017 12:02:23 03/19/2017 12:43:30 Depressive disorder 84510084 F32.9 Advised to re-establi sh with psych and counseling Diabetes mellitus 476810 09 E11.9 WIll recheck all labs and go from there Will send for eye exam Noncomplia nce with treatment 4660973 Z91.19 Advised to stop using opioidsAdv ised that he needs to f/u as recommende d d/t HTN and DM being silent killers Advised that him being back on opioids points to him needing to see psych again - he needs to f/u as he was directed Obesity 839327626 E66.9 Down 12lbs over the last year Advised 30 minutes of exercise 5 days/week Advised to not drink her calories Advised 3 balanced meals/day with plenty of fruits and vegetables Gastroesop hageal reflux disease 371569747 K21.9 Advised to stay away from spicy and greasy foodsAdvis ed to stay away from fatty foodsDo not eat within 2 hours of going to bedStay sitting up after mealsNo smoking Essential hypertension 91352837 I10 142/92 at second check - will restart lisinopril Hyperlipidemia 12538940 E78.5 Will recheck today Hypothyroidism 83600544 E03.9 Will recheck today Vitamin D deficiency 347 27108 E55.9 Will recheck today Harmful pa ttern of use of opioid 5940395 F11.90 Heis back to using opiates - take about 1 pill/day when he is - states he takes them 3-4 days/week [id number] MD Dee Johns (Adult Med) [address] [place] [phone] 04/02/2017 09:13:29 04/02/2017 09:50:15 Increased liver function 72646017 R94.5 Will begin with liver US and hepatitis panelPatie nt states that he quit drinking alcohol 6+ months ago Hyperlipidemia 52262882 E78.5 initiated atorvastat in 40mg qPMWIll likely need to increase to 80mg qPM Diabetes mellitus 906601 09 E11.9 a1c: 6.4 at last check and not taking any medication s - will continue with diet and exercise maintainan ce for DM Harmful pa ttern of use of opioid 9782249 F11.90 Heis back to using opiates - take about 1 pill/day when he is - states he takes them 3-4 days/week Not seeing psych anymore Discussed that I will not prescribe Ambien because I know that patient is illegally taking opiods and Ambien is a controlled substance so he needs to f/u with provider prescribin g this Depressive disorder 3548 9007 F32.9 Advised to re-establi sh with psych and counseling Essential hypertension 16909287 I10 126/86 NAD, WNL - right now controlled with diet and exerciseAd vised that if his BP is reguarly >140/90 to contact clinic and we will restart medication Insomnia 849544531 G47.0 0 Discussed that I will not prescribe Ambien because I know that patient is illegally taking opiods and Ambien is a controlled substance so he needs to f/u with provider prescribin g this [id number] Nathalia Perez MD [facility] (Adult Med) [address] [place] [phone] 07/02/2017 09:10:19 07/02/2017 17:44:44 Vitamin D deficiency 50763654 E55.9 Advised to take supplement Gastroesop hageal reflux disease 794063915 K21.9 Advised to stay away from spicy and greasy foodsAdvis ed to stay away from fatty foodsDo not eat within 2 hours of going to bedStay sitting up after mealsNo smoking Hyperlipidemia 68841099 E78.5 initiated atorvastat in 40mg qPMWIll likely need to increase to 80mg qPM Increased liver function 35271075 R94.5 Given order again to complete liver USPatient states that he quit drinking alcohol 6+ months ago Diabetes mellitus 315459 09 E11.9 a1c: 6.4 at last check and not taking any medication s - will continue with diet and exercise maintainan ce for DM Eczema 49629559 L30.9 Apply plenty of lotion at least 3 times every day regardless if there are any dry spots or not. Eucerin, Aveeno, Lubriderm, and Vaseline Intensive Care are examples of good lotions to use; but any lotion that is fragrance free may be acceptable . Use the prescribed steroid cream twice daily for one week for excessivel y dry areas. You must stop applying the steroid cream after one week and give your skin a one week break before apply it again. Call the office if skin is not improving in 1-2 weeks. Patient verbalized understand Carley bartlett patient a referral to derm and told him it may take a few months to get in at this time - patient declined Obesity 189350057 E66.9 Down 12lbs over the last year Advised 30 minutes of exercise 5 days/week Advised to not drink her calories Advised 3 balanced meals/day with plenty of fruits and vegetables Insomnia 714616900 G47.0 0 Discussed that I will not prescribe Ambien because I know that patient has been/is illegally taking opioids and Ambien is a controlled substanceA dvised that he cannot have two PCPs prescribin g him medication , so he can either establish with psych to get the Ambien or f/u with his other PCPPatient states that he will f/u with Dr. Cannon for Ambien Verruca vulgaris 3335379 3 B07.9 Offered patient a referral to derm and told him it may take a few months to get in at this time - patient declined [id number] KELSIE Zapien NP [facility] [address] [place] [address] 01/05/2018 11:27:44 01/05/2018 15:34:58 Hyperlipidemia 78790855 E78.5 Obtain fasting labs Prediabetes 638079321 R7 3.03 Obtain HgA1C Family his tory of Cardiomyopathy 278165351 Z82.49 Obtain echo Insomnia 032370627 G47.0 0 Start hydroxyzin e as directed. Continue fluoxetine . F/u 1 month Pain in right knee 96477 66296 33020 M25.561 Start PT [id number] KELSIE Zapien NP [facility] [address] [place] [address] 04/10/2018 09:57:59 04/14/2018 13:10:15 Insomnia 269297741 G47.00 - D/c hydroxyzin e- Start belsomra-C heck labs Multiple skin tags 27850 7009 L91.8 -Refer to derm Hyperlipidemia 71419579 E78.5 -Obtain fasting labs Prediabetes 567880805 R7 3.03 -Obtain HgA1C Family his tory of Cardiomyopathy 161403874 Z82.49 -Obtain echo [id number] PATTI AU [facility] [address] [place] [address] 05/03/2019 15:06:47 05/04/2019 14:04:44 Gout 10058025 M10.9 Patient is having burning pain in toes bilateral. He would like to be checked for gout. DDX1. Neuropathy : likely as pain is bilateral in stocking distributi on 2. MS: likely as nerve pain, increased anxiety. less likely as patient is male, is prediabeti c, bilateral 3. Tarsal tunnel: likely as burning in toes. Less likely as bilateral and no numbness or tingling, and not usual tibial nerve distributi on. 3. Gout: likely because patient says it flares, less likely as pain is bilateral, in all toes plan: if gout is negative can talk about how he is doing at next appointmen t ans consider starting gabapentin . Hyperlipidemia 08522363 E78.5 -Obtain fasting labs- continue atorvastat in 10 mg Prediabetes 431964405 R7 3.03 - A1C 6.4, close to diabetes - patient is going to try lifestyle modificati on- He is to cut out junk food and start exercising . talked about recommenda tions and what foods to avoid.- f/u at 3 months- talked about starting metformin if A1C increases- Will start aiden inhibitor for kidney protection adn HTN Family his tory of Cardiomyopathy 741190320 Z82.49 Patient mother had a heritable cardiomyop athy. He never went to the echo last year and would like to get this taken care of now. - echo Depressive disorder 0719 7060 F32.9 Patient has increased anxiety and would like it to be controlled . has been on 20 mg dose for many years.-Inc rease prozac to 40 mg- return in 4 weeks- if HI/SI develop notify us, present to ER, and/or call suicide hotline Essential hypertension 22690219 I10 Patient previously diagnosed with hypertensi on was able to get off the medicine by excercise and diet. - Patient is to keep log of BP for the next few weeks,- return in 4 weeks for BP check, same day as depression med checkup. If patient notices constant elevation he ay make an appointmen t sooner- will initiate treatment if lifestyle modificati ons are not improving BP- Will treat with AIDEN for dual kidney protection and HTn control [id number] Tequila Mckeon MD [facility] [address] [place] [address] 06/18/2019 16:06:00 06/21/2019 09:59:01 Pain in right knee 4839154281 05796 M25.561 Family his tory of Cardiomyopathy 174231019 Z82.49 Vitamin D deficiency 347 84705 E55.9 Moderate r ecurrent major depression 42900903 F33.1 Gastroesop hageal reflux disease 379979193 K21.9 Hyperlipidemia 39676004 E78.2 [id number] PATTI AU [facility] [address] [place] [address] 02/08/2020 14:10:23 02/09/2020 10:42:00 Essential hypertension 79497877 I10 BP 138/100, not WNL.Patien t previously diagnosed with hypertensi on was able to get off the medicine by excercise and diet. He admits to falling back to old habits of fast foods. drinks diet soda. start lisinopril 10-hcz 12.5.Advis ed to check BP regularly with a goal of <140/90, if BP consistent ly >140/90, advised to contact clinic Discussed DASH diet Advised weight loss and diet is best way to control BP Advised 30 minutes of exercise minimum daily Advised tobacco, alcohol, caffeine all increase BP Advised goal for BP is <140/90- Patient is to keep log of BP for the next few weeks,- return in 4 weeks for BP check. If patient notices constant elevation he may make an appointmen t sooner Diabetes mellitus 485790 09 E11.9 Last A1C 6.4 and today 6.6. Patient will be starting metformin again. He tolerated well in the past - check sugars daily; goal fasting <130 and 1-2 hours after meal <180. call office if sugars falling under 70. Patient aware of hypoglycem ia symptoms. - discussed diet: avoid sugars, pasta, tortillas, bread, rice, potatoes - Excercise 30 min 5x week - diabetic eye exam - foot exam at next visit Dry eyes 507083481 H04.1 29 [id number] PATTI AU [facility] [address] [place] [address] 04/03/2020 10:40:15 04/04/2020 14:24:04 Essential hypertension 11042468 I10 BP 138/100, not WNL.Luis aguilar previously diagnosed with hypertensi on was able to get off the medicine by excercise and diet. He admits to falling back to old habits of fast foods. drinks diet soda. start lisinopril 10-hcz 12.5.Advis ed to check BP regularly with a goal of <140/90, if BP consistent ly >140/90, advised to contact clinic Discussed DASH diet Advised weight loss and diet is best way to control BP Advised 30 minutes of exercise minimum daily Advised tobacco, alcohol, caffeine all increase BP Advised goal for BP is <140/90- Patient is to keep log of BP for the next few weeks,- return in 4 weeks for BP check. If patient notices constant elevation he may make an appointmen t sooner Diabetes mellitus 733039 09 E11.9 Last A1C 6.4 and today 6.6. Patient will be starting metformin again. He tolerated well in the past - check sugars daily; goal fasting <130 and 1-2 hours after meal <180. call office if sugars falling under 70. Patient aware of hypoglycem ia symptoms. - discussed diet: avoid sugars, pasta, tortillas, bread, rice, potatoes - Excercise 30 min 5x week - diabetic eye exam - foot exam at next visit Fatigue 83360163 R53.83 Patient reports worsening fatigue is now affecting his work. drinking 3 cups of coffee, takes melatonin before bed. Does not check sugars at home. Does not take medication for DM or HTN as prescribed . He agrees to have labs done. denies sweats, weight loss. - advised to watch diet- quit smoking Sleep apnea [id number] G47 .30 Patient with htn, hypertrigl yceride, morbid obesity (bmi 45), DM2, neck circumfere nce> 16 in presents with worsening fatigue. He has experience d increased daytime somnolence despite sleeping at night, has been told he snores before. - sleep study- control BP- checking labs Cough [id number] Patient presents with dry cough x 1-2 weeks. He has started lisinopril in last month but states cough has been intermitte nt since December. He states cough has improved. xray at urgent care clear, need record. - will d/c lisinopril if cough continues- stop smoking- control acid refluxc- avoiding late meals, discussed food that are triggers, losing weight Health Concerns Section Related Observation LastModified by Organization Detai ls LastModified Time None Recorded Concern Status LastModified by Organization Details LastModified Time None Recorded Advance Directives Directive N: Payers Insurance Date Sequence Insurance Name Policy Number Policy Lynch Covered Member ID Lynch Member ID Guarantor Name 04/07/2020 1 [employer] [facility]PPO) Vijay Garcia [id number] Vijay Garcia 04/07/2020 1 [employer] Vijay Garcia [id number] Vijay Garcia 04/10/2018 2 [facility] (MEDICAID HMO) Vijay Garcia [id number] Vijay Garcia 05/03/2019 1 [employer] - DOS PRIOR TO 21 - [facility] BENEFITS PLAN [id number] Vijay Garcia [id number] Vijay Garcia Notes Date Note Type Note Provider Name and Address Organization Details Recorded Time 018 text/ht ml Patient presents today for a f/u on insomnia. Hydroxyzine makes him drowsy during the day, so he would like a prescription for Belsomra since he has took it in the past and he tolerated it well. He did not obtain blood work or echo from previous visit and would like a new order for the labs and echo. Would like to be referred to dermatology for removal of multiple skin tags to face and eyes. Requesting a psychiatrist for his anxiety. States he has been having at least one panic attack weekly and his anxiety is way worse due to a custody henderson regarding his son. KELSIE Zapien NP Attn: Accounting, [address] [place], [address], [facility] 04/10/2018 16:10:05 019 text/ht ml Anxiety/DepressionReported bypatient.Quality:increased anxiety Severity:denies suicidal ideations; able to maintain relationships; does not interfere with activities of daily living Associated Symptoms:denies homicidal ideations;weight gain ( lbs);anxiety with excessive sweating vijay is a 38 YO M presenting for med refill He states he has not been taking care of himself. Has not been compliant with diet or excercise. He has been spending a lot of time at work and it causes stress. He will start working out next week to try to manage his BP and prediabetes with lifestyle modifications. He also c/o burning in his toes. He thinks it is gout and would like to check it. Burning sensation does not radiate. He would also like to get a referral again to have his heart looked at as his mother has cardiomyopathy that can be inherited. He is sleeping better and is just taking melatonin. He feels like his anxiety is high and when he gts stressed he sweats. Tequila Mckeon MD Attn: Accounting, [address], [place], [address], [facility] 05/04/2019 23:49:33 019 text/ht ml Anxiety/DepressionReported bypatient.Quality:symptoms improved Severity:denies suicidal ideations; able to maintain relationships; does not interfere with activities of daily living Duration:stablizing Onset/Timing:gradual Context:family problems;trouble at work Modifying Factors:counselling; medications as directed Associated Symptoms:denies homicidal ideations;emotional lability;anxiety;depression;restles sness/agitation;sleep disturbances;anhedonia;anxiety with muscle tension;low self-esteem;pessimism;social withdrawalHyperlipidemiaReported bypatient.Control:usually well controlled; improving; at goal Compliance:compliant; compliant with diet; exercises Complications:no coronary artery disease; no peripheral artery disease; no cardiovascular diseaseNotes:has been taking atorvastatin 10 mg instead of 40 mg as prescribed; I reviewed his labs and the need to control lipids more tightly.KneeReported bypatient.Location:right; anterior Quality:aching; throbbing; frequent; worsening Severity:moderate Timing:gradual; recurrent Context:overuse Alleviating Factors:sitting; lying down; heat; ice; rest; elevation; stretching; NSAIDs Aggravating Factors:standing; walking; lifting; carrying; twisting; bending/squatting; pushing/pulling; ROM; weight bearing; exercise; changing clothes; getting out of bed; going from sit to stand; upstairs; downstairs; cold weather; damp weather Associated Symptoms:no ecchymosis; no drainage; no fever; no chills; no weight loss; no change in bowel/bladder habits;weakness;swelling;catching/l ocking;popping/clicking;buckling;gr inding;instability;radiation down legReflux/GERDReported bypatient.Symptomsheartburn;postpra ndial pain Quality:stabbing Severity:moderate Onset/Timing:gradual onset; occurs >1 hr after meals Context:related to any meal;related to caffeine;related to spicy foods;related to stress Alleviating Factors:sitting up; protein pump inhibitors; non-spicy foods; antacids Aggravating Factors:exertion;lying down;worsened by food;caffeine intake Associated Symptoms:no frequent coughing; no feeling of fullness/mass in throat; no hoarseness; no food getting stuck; no nausea; no vomiting; not vomiting blood; no regurgitation; no shortness of breath; no chest pain; no difficulty swallowing; no pain when swallowing; no black/tarry stools; no throat pain;heartburn;bad taste;decreased appetite Tequila Mckeon MD Attn: Accounting, [address] [place], [address], [facility] 06/19/2019 18:19:50 020 text/ht ml Anxiety/DepressionReported bypatient.Quality:symptoms improved Severity:denies suicidal ideations; able to maintain relationships; does not interfere with activities of daily living Duration:stablizing Onset/Timing:gradual Context:family problems;trouble at work Modifying Factors:counselling; medications as directed Associated Symptoms:denies homicidal ideations;emotional lability;anxiety;depression;restles sness/agitation;sleep disturbances;anhedonia;anxiety with muscle tension;low self-esteem;pessimism;social withdrawalHyperlipidemiaReported bypatient.Control:usually well controlled; improving; at goal Compliance:compliant; compliant with diet; exercises Complications:no coronary artery disease; no peripheral artery disease; no cardiovascular diseaseNotes:atorvastatin 40 mgReflux/GERDReported bypatient.Symptomsheartburn;postpra ndial pain Quality:stabbing Severity:moderate Onset/Timing:gradual onset; occurs >1 hr after meals Context:related to any meal;related to caffeine;related to spicy foods;related to stress Alleviating Factors:sitting up; protein pump inhibitors; non-spicy foods; antacids Aggravating Factors:exertion;lying down;worsened by food;caffeine intake Associated Symptoms:no frequent coughing; no feeling of fullness/mass in throat; no hoarseness; no food getting stuck; no nausea; no vomiting; not vomiting blood; no regurgitation; no shortness of breath; no chest pain; no difficulty swallowing; no pain when swallowing; no black/tarry stools; no throat pain;heartburn;bad taste;decreased appetite Vijay presents for check up PATTI AU Attn: Accounting, [address] [place], [address], [facility] 02/09/2020 10:11:09 020 text/ht ml CoughReported bypatient.Severity:improving Duration:intermittent Context:smoker;use of AIDEN inhibitor Associated Symptoms:no fever; no chills; no chest pain; no heartburn; no nausea; no vomiting; no edema; no agitation;wheezingSleep ProblemsReported bypatient.General Sleep:snoring;excessive sleepiness during the day (daytime somnolence) Patient presents for dry cough and fatigue patient developed dry cough after a bout of bad acid reflux a few weeks ago. He went to urgent care on friday night where xray was clear and he was prescribed antibiotics. some congested hot shower takes care of it. Also had similar cough in intermittently since December.cough is improving and denies fever, sore throat, ear pain. Patient also states he has worsening fatigue in the last few months despite sleeping well. It is not affecting his work. He does not take htn adn DM medications as prescribed. He notices daytime sleepiness, and states he does snore. He takes melatonin for sleep. denies sweats weight loss. He does continue to vape. PATTI AU Attn: Accounting, [address] [place], [address], [place] [facility] 04/03/2020 13:13:02
--- OUTSIDE RECORDS SUMMARY | 2025-04-19 02:50 | XMS_ITS | Clinical Summary ---
Author Organization [facility] Address [address] [place] [address] Care Team Providers Care Echo Vascular Tech Name Role Phone Pat Lucas MD Primary Care Provider [phone] Source Comments [facility],non-owned Affiliates and Associated Physician Practices is amultiple site organization consisting of ambulatory clinics and hospital sitesin [place], [place], [place] and [place]. This disclosure is being madepursuant to the Care Everywhere program and may not contain all information available regarding this patient. Last updated 18.[facility] Allergies No known active allergies Medications * Be aware that medications may not be up to date on this document. Alwaysverify current medications with the patient. atorvastatin (LIPITOR) 40 MG tablet TAKE 1 TABLET BY MOUTH EVERY DAY IN THE EVENING 12/07/2021 Active FLUoxetine (PROZAC) 40 MG capsule Take 40 mg by mouth once daily 12/07/2021 Active HYDROcodone-meredith taminophen (NORCO) 7.5-325 MG tablet Take 1 tablet by mouth every 6 hours 12/26/2021 Active losartan (COZAAR) 25 MG tablet Take 25 mg by mouth once daily 12/26/2021 Active omeprazole (PRILOSEC) 20 MG capsule Take 20 mg by mouth once daily 05/28/2021 Active Active Problems Problem Noted Date Diagnosed Date Diabetes 01/06/2022 Chest pain in adult 01/06/2022 Obstructive sleep apnea 01/06/2022 Entropion of right eyelid 01/06/2022 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 Hypertensive disorder 11/07/2021 Depressive disorder 06/19/2021 Social History Tobacco Use Types Packs/Day Years Used Date Smoking Tobacco: Never Smokeless Tobacco: Never Sex and Gender Information Value Date Recorded Sex Assigned at Not on file Legal Sex Male 2:33 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 Gender Identity Not on file Sexual Orientation Not on file Last Filed Vital Signs Vital Sign Reading Time Taken Comments Blood Pressure - - Pulse - - Temperature - - Respiratory Rate - - Oxygen Saturation - - Inhaled Oxygen Concentration - - Weight 146.1 kg (322 lb) 01/02/2022 10:02 AM CREATIVE TECHNOLOGIST Height 172.7 cm (5' 8) 01/02/2022 10:02 AM CREATIVE TECHNOLOGIST Body Mass Index 48.96 01/02/2022 10:02 AM CREATIVE TECHNOLOGIST Plan of Treatment Health Maintenance Due Date Last Done Comments COLOGUARD (AGES 45-75) - COL ON CA SCREENING 1978 COLON MONITORING 1978 COLONOSCOPY - COLON CA SCREENING 1978 CT COLONOGRAPHY - COLON CA SCREENING 1978 Colorectal Cancer Screening 1978 FIT - COLON CA SCREENING 1978 FLEX SIG - COLON CA SCREENING 1978 HIV SCREENING 1993 HEPATITIS C SCREENING 05/01/1996 DTAP/TDAP/TD VACCINES (1 - Tdap) 1997 HEPATITIS B VACCINE (1 of 3 - 19+ 3-dose series) 1997 DIABETES-FOOT EXAM WITH MONOFILAMENT 01/06/2022 DIABETES-HGB A1C 01/06/2022 DIABETES-SERUM CREATININE 10/16/20222020, 10/16/2021 COVID-19 VACCINE (2 - 2023-2 5 season) 2024 06/03/2021 DEPRESSION SCREENING 11/03/2024 DIABETES - URINE PROTEIN SCREENING 11/03/2024 10/15/2021 INFLUENZA VACCINE (Season Ended) 2025 ZOSTER VACCINE (1 of 2) 2028 HIB VACCINE Aged Out No longer eligi ble based on patient's age to complete this topic HPV VACCINE Aged Out No longer eligi ble based on patient's age to complete this topic MENINGOCOCCAL (Group B) VACCINE SHARED DECISION-MAKING Aged Out No longer eligible based on patient's age to complete this topic MENINGOCOCCAL GROUPS A/C/Y/W VACCINE Aged Out No longer eligible b ased on patient's age to complete this topic PNEUMOCOCCAL VACCINE Aged Out No long er eligible based on patient's age to [place] [id number] Care Teams Echo Vascular Tech Relationship Specialty Start Date End Date Pat Lucas MD [address] [place] [address] [place] [address] PCP - General 01/02/22
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
[2025-04-19 13:13] VITALS: BP 116/73; PULSE 95; RESP 18; TEMP 36.1; O2SAT 98
[2025-04-19] MEDS: LACTATED RINGERS 1,000 ML 150 ML IV CONT (13:23)
--- NOTE | 2025-04-19 13:53 | WPDANESEPPF ---
Anes - Initial Pre Proc Eval Procedure: Operation Date: 04/19/25 14:30 Proposed Procedures p Screening Colonoscopy - Alonso Sharp MD Date/Time: 04/19/25 13:53 Surgeon: Alonso Sharp MD Pre Op Diagnosis: Screening Patient Data Age: 44 Gender: M Height: 1.73 m Weight: 110.8 kg Last Vital Signs Temp 36.1 C L 04/19/25 13:13 Pulse 95 04/19/25 13:13 Resp 18 04/19/25 13:13 BP 116/73 04/19/25 13:13 Pulse Ox 98 04/19/25 13:13 O2 Del Method Room Air 04/19/25 13:13 Allergies Allergy/AdvReac Type Severity Reaction Status Date / Time No Known Allergies Allergy Verified 04/19/25 13:11 Home Medications ?Medication ?Instructions ?Recorded ?Confirmed ?Type atorvastatin 10 mg tablet (Lipitor) 10 mg PO DAILY 10/03/21 04/19/25 History melatonin 3 mg capsule 3 mg PO QHS 10/03/21 04/19/25 History fluoxetine 40 mg capsule 40 mg PO DAILY #90 caps 02/22/25 04/19/25 Rx omeprazole 40 mg capsule,delayed 40 mg PO DAILY #90 caps 02/22/25 04/19/25 Rx release tirzepatide 5 mg/0.5 mL 5 mg (0.5 mL) subcut WEEKLY #2 mL 02/22/25 04/19/25 Rx subcutaneous pen injector (Mounjaro) Patient hx anesthesia problems: none Family hx anesthesia problems: none Results Review: All pre-operative results and documents have been reviewed as part of the pre-operative evaluation. [facility] Past Medical History Medical History GERD (gastroesophageal reflux disease) Depression Type 2 diabetes mellitus Sleep apnea Diabetes Hypertension Fracture of distal end of right radius and ulna Surgical History Surgical History Hx of blepharoplasty right upper eyelid History of tonsillectomy History of appendectomy Family History Family History Mother Family history of diabetes mellitus in first degree relative Family history of malignant neoplasm of breast in first degree relative Father No problems noted. Sibling No problems noted. Social History Social History Years smoked: 18 Smoking status: Former smoker Tobacco type: cigarettes and e-cigarettes/vaping Alcohol intake: never Alcohol use details: once a month Substance use: current Substance use type: marijuana Other substance usage details: smokes marijuana daily Living arrangements: with family Spiritual care concerns: No Anes - Eval Final PreProcedure Day of Procedure 04/19/25 13:53 Patient weight: obese Heart: regular rate and rhythm Lungs: clear to auscultation Airway: Mallampati scale class II Neurological: alert and oriented Last oral intake: >/= 8 hours ASA classification: III Emergent: no Anesthetic plan: proceed Anesthesia type and monitoring: general GIVS and standard monitoring Results Review: All pre-operative results and documents have been reviewed as part of the pre-operative evaluation. Informed Consent: The patient's anesthetic plan and its attendant risks and benefits were discussed with the patient/family/POA. Questions were solicited and answers provided to the satisfaction of the patient/family/POA.
--- NOTE | 2025-04-19 14:03 | PM.HPGS ---
History of Present Illness History of Present Illness Consent: Risks, benefits, and alternatives have been discussed and questions answered. Patient agrees to proceed with procedure. Chief complaint: Screening Narrative: Vijay Garcia is a 44 year old male here for first screening colonoscopy Review of Systems Review of Systems: All systems reviewed & are unremarkable except as noted in HPI and below PMFSH Past Medical History Medical History (Updated 04/19/25 @ 14:04 by Alonso Sharp MD) Colon cancer screening GERD (gastroesophageal reflux disease) Depression Type 2 diabetes mellitus Sleep apnea Diabetes Hypertension Fracture of distal end of right radius and ulna Surgical History Surgical History Hx of blepharoplasty right upper eyelid History of tonsillectomy History of appendectomy Family History Family History Mother Family history of diabetes mellitus in first degree relative Family history of malignant neoplasm of breast in first degree relative Father No problems noted. Sibling No problems noted. Social History Social History Years smoked: 18 Smoking status: Former smoker Tobacco type: cigarettes and e-cigarettes/vaping Alcohol intake: never Alcohol use details: once a month Substance use: current Substance use type: marijuana Other substance usage details: smokes marijuana daily Living arrangements: with family Spiritual care concerns: No Meds Home Medications and Allergies Home Medications ?Medication ?Instructions ?Recorded ?Confirmed ?Type atorvastatin 10 mg tablet (Lipitor) 10 mg PO DAILY 10/03/21 04/19/25 History melatonin 3 mg capsule 3 mg PO QHS 10/03/21 04/19/25 History fluoxetine 40 mg capsule 40 mg PO DAILY #90 caps 02/22/25 04/19/25 Rx omeprazole 40 mg capsule,delayed 40 mg PO DAILY #90 caps 02/22/25 04/19/25 Rx release tirzepatide 5 mg/0.5 mL 5 mg (0.5 mL) subcut WEEKLY #2 mL 02/22/25 04/19/25 Rx subcutaneous pen injector (Mounjaro) Allergies Allergy/AdvReac Type Severity Reaction Status Date / Time No Known Allergies Allergy Verified 04/19/25 13:11 Vital Signs Vital Signs - 24 hr 04/19/25 13:13 Temperature 97 F L Pulse Rate 95 Respiratory Rate 18 Blood Pressure 116/73 Pulse Oximetry 98 Oxygen Delivery Room Air Exam Const: General: comfortable and no acute distress HENMT: Face/Nose/Sinus: Normal nares present Eyes: General: appearance normal, both eyes and all related structures Neck: Neck: no JVD Resp: Auscultation: clear to auscultation bilaterally Cardio: Rate: regular rate Rhythm: regular rhythm GI: Inspection: non-distended GI Palp: Yes Soft to palpation Skin: General skin exam: normal color Neuro: General: gait normal Speech: normal speech Extrem: General: normal to inspection Psych: Mental Status: mental status grossly normal Assessment and Plan Assessment and plan (1) Colon cancer screening: Code(s): Z12.11 - Encounter for screening for malignant neoplasm of colon Status: Acute Assessment and Plan: colonoscopy
[2025-04-19 14:20] VITALS: BP 105/62; PULSE 94; RESP 18; O2SAT 94
--- NOTE | 2025-04-19 14:20 | S_PTH ---
PATIENT: Vijay Garcia LOC: [facility] Reed#:[id number] AGE/SX: 44/M ROOM: RE04/19/[address]: Alonso Sharp MD : 1980 BED: DIS: 04/19/2025 SPEC #: [id number] RECD: 04/20/25 12:46 STATUS: DOLORES REQ #: [id number] PRITI: 04/19/25 14:[address]: Alonso Sharp DEPT: [facility] Surgical RECD BY: Nisreen Cespedes ENTERED: 04/20/25 12:47 SP TYPE: Surgical OTHR DR: Ana Nunez, JASON Tissues: A - Colon Polypectomy Procedures: Hematoxylin and Eosin Stain Gross and Microscopic Level 4
[2025-04-19 14:30] VITALS: BP 130/65; PULSE 86; RESP 20; O2SAT 97
[2025-04-19 14:40] VITALS: BP 113/65; PULSE 77; RESP 18; O2SAT 100
== END 2025-04-19 14:54 | disposition home or self-care (01) ==
PROVIDERS: PCP Nurse Practitioner Family; Referring Provider Nurse Practitioner Family; Visit Provider Internal Medicine Gastroenterology
PROC: 0DJD8ZZ Inspection of Lower Intestinal Tract, Via Natural or Artificial Opening Endoscopic (ICD-10-PCS; CPT 45378; principal; 2025-04-19 14:30)
DX: Z12.11 Encounter for screening for malignant neoplasm of colon (principal); D12.5 Benign neoplasm of sigmoid colon; K57.30 Diverticulosis of large intestine without perforation or abscess without bleeding; K64.8 Other hemorrhoids; Z87.891 Personal history of nicotine dependence; E66.9 Obesity, unspecified; Z68.37 Body mass index [BMI] 37.0-37.9, adult
CPT/HCPCS: 45385; 88305; J2003; J2704; J7120

== ENCOUNTER 2025-05-17 08:59 | Outpatient (CLI) | payer OTHER, SELFPAY ==
--- OUTSIDE RECORDS SUMMARY | 2025-05-17 09:16 | XMS_ITS | Clinical Summary ---
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 Not on file Not on file Last Filed Vital Signs Vital Sign Reading Time Taken Comments Blood Pressure 140/102 07/22/2022 12:38 PM CDT Pulse 98 07/22/2022 12:38 PM CDT Temperature 36.8 C (98.2 F) 10/08/2017 3:35 PM NEUROPSYCHIATRIC AIDE Respiratory Rate 16 10/08/2017 3:35 PM NEUROPSYCHIATRIC AIDE Oxygen Saturation 97% 10/08/2017 3:35 PM NEUROPSYCHIATRIC AIDE Inhaled Oxygen Concentration - - Weight 148.3 [...] Health Maintenance Insurance CIGNA CIGNA Care Teams Wheel Alignment Mechanic Relationship Specialty Start Date End Date Pat Lucas MD [address] [place] [address] [place] [address] PCP - General FAMILY PRACTICE 07/05/22
--- OUTSIDE RECORDS SUMMARY | 2025-05-17 09:16 | XMS_ITS | Encounter Summary ---
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
--- OUTSIDE RECORDS SUMMARY | 2025-05-17 09:16 | XMS_ITS | Clinical Summary ---
Author Organization [facility] [address] Address [address] [place] [address] Care Team Providers Care Divorce Lawyer Name Role Phone Pat Lucas MD Primary [...] (10/05/2021): Added automatically from request for surgery [id number] Surgical History Surgery Date Site/Laterality Comments APPENDECTOMY [...] Comments Blood Pressure 164/103 10/17/2021 12:20 AM DIRECTOR ELECTRICAL ENGINEERING Pulse 97 10/17/2021 12:20 AM DIRECTOR ELECTRICAL ENGINEERING Temperature 37.1 C (98.8 F) 10/16/2021 6:20 PM DIRECTOR ELECTRICAL ENGINEERING Respiratory Rate 20 10/17/2021 12:2 0 AM DIRECTOR ELECTRICAL ENGINEERING Oxygen Saturation 95% 10/17/2021 12: 20 AM DIRECTOR ELECTRICAL ENGINEERING Inhaled Oxygen Concentration - - Weight 141.3 kg (311 lb 8.2 oz) 10/16/2021 6:20 PM DIRECTOR ELECTRICAL ENGINEERING Height 172.7 cm (5' 8) 10/16/2021 6:20 PM DIRECTOR ELECTRICAL ENGINEERING Body Mass Index 47.36 10/16/2021 6:20 PM DIRECTOR ELECTRICAL ENGINEERING Plan of Treatment Not on file Medical Devices Implanted Type Area Braille Operator Device Identifier Shelf Expiration Date Model / Serial / Lot [employer] [id number] 3 Hole Anatomic Graft Window Radius Right Wrist Volar Standard - [id number] Implanted:Qty: 1 on 10/15/2021 by Jeferson Gonzalez MD at [facility] Right: Wrist [employer] AR-8916VSR- 03 / / [employer] Ar-8935-16 Low Profile Screws 3.5mm 16mm Self Tap Solid Hexalobe Midfoot - [id number] Implanted:Qty: 2 on 10/15/2021 by Jeferson Gonzalez MD at [facility] Right: Wrist [employer] AR-8935-16 / / [employer] [id number] Screw Kreulock Compression Titanium 2.4x22mm - [id number] Implanted:Qty: 1 on 10/15/2021 by Jeferson Gonzalez MD at [facility] Right: Wrist [employer] AR-8724VCL- 22 / / [employer] [id number] Screw Kreulock Compression Titanium 2.4x24mm - [id number] Implanted:Qty: 2 on 10/15/2021 by Jeferson Gonzalez MD at [facility] Right: Wrist [employer] AR-8724VCL- 24 / / [employer] [id number] Screw Kreulock Compression Titanium 3.5x14mm - [id number] Implanted:Qty: 1 on 10/15/2021 by Jeferson Gonzalez MD at [facility] Right: Wrist [employer] AR-8935CL-1 4 / / Insurance COMMERCIAL GENERIC [employer] OPEN ACCESS Care Teams Divorce Lawyer Relationship Specialty Start Date End Date Pat Lucas MD [address] [place] [address] [address] [place] [address] PCP - General Family Medicine 10/08/21
--- OUTSIDE RECORDS SUMMARY | 2025-05-17 09:16 | XMS_ITS | Patient Health Record ---
Author Organization [facility] Address [address] [place] [address] Care Team Providers Care Estate Tax Examiner Name Role Phone Imelda Marquez Primary Care Provider Reason For Referral No Information Medications Medication SIG (Take, Route, Fr equency, Duration) Notes Start Date End Date Status PROzac 20 MG 1 capsule in the mor timothy Orally Once a day; Duration: 30 day(s) 11/21/2017 Active Omeprazole 20 MG 1 capsule Orally Onc e a day; Duration: 30 days Active Ambien 10 MG 1 tablet at bedtime as needed Orally Once a day Active PROzac 10 MG 1 capsule in the mor timothy Orally Once a day; Duration: 07 days 11/21/2017 Ac tive Problems Problem Type SNOMED Code ICD Code Onset Dates Problem Status W/U Status Risk Notes Problem Moderate recurrent major depression (41812757) Moderate episode of recurrent major depressive disorder (F33.1) Active confirmed Problem Obesity (012705523) Obesity (BMI 30-39.9) (E66.9) Active confirmed Problem Insomnia (486855239) Insomnia, unspecified type (G47.00) Active confirmed Problem Gastroesophageal reflux disease (112289820) GERD without esophagitis (K21.9) Active confirmed Problem Morbid obesity (769193326) Obesity, morbid, BMI 40.0-49.9 (E66.01) Active confirmed Plan Of Treatment Future Test Test Name Order Date Drug Analysis, Unknown, Qual 01/07/2018 Insurance Providers Payer Name Payer Address Payer Phone Subscriber Number Group Number Insured Name Patient Relationship to Insured Coverage Start Date Coverage End Date [facility] [address] [address] [place] [address] [id number] Vijay Garcia Self - patient is the insured 5 Medical (General) History Surgical History Surgery Date(Month/Year) tonsillectomy 2009 apendectomy 2016
--- OUTSIDE RECORDS SUMMARY | 2025-05-17 09:16 | XMS_ITS | Encounter Summary ---
Author Organization [facility] Address [address] [place] [address] Care Team Providers Care Hand Funnel Coater Name Role Phone Howard Mendez MD Primary Care Provider Pat Lucas MD Primary Care Provider [phone] Encounter Details Date Type Department Care Team ([facility] st Contact Info) Description 09/26/2020 Abstract [facility] at [address] [address] Gordo Ortega [place] Social History Tobacco Use [...] on filedocumented in this encounter Care Teams Hand Funnel Coater Relationship Specialty Start Date End Date Howard Mendez MD [facility] [address] [address] PCP - General INTERNAL MEDICINE 08/02/20 07/04/22 Pat Lucas MD [address] [place] [phone] PCP - General FAMILY PRACTICE 07/05/22 documented as of this encounter
--- OUTSIDE RECORDS SUMMARY | 2025-05-17 09:16 | XMS_ITS | Referral Summary ---
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 Pulse 97 10/17/2021 12:20 AM DRYWALL FINISHER FOREMAN Temperature 37.1 C (98.8 F) 10/16/2021 6:20 PM DRYWALL FINISHER FOREMAN Respiratory Rate 20 10/17/2021 12:2 0 AM DRYWALL FINISHER FOREMAN Oxygen Saturation 95% 10/17/2021 12: 20 AM DRYWALL FINISHER FOREMAN Inhaled Oxygen Concentration - - Weight 141.3 kg (311 lb 8.2 oz) 10/16/2021 6:20 PM DRYWALL FINISHER FOREMAN Height 172.7 cm (5' 8) 10/16/2021 6:20 PM DRYWALL FINISHER FOREMAN Body Mass Index 47.36 10/16/2021 6:20 PM DRYWALL FINISHER FOREMAN Plan of Treatment Not on file Medical Devices Implanted Type Area Sales Operations Analyst Device Identifier Shelf Expiration Date Model / Serial / Lot [employer] [id number] 3 Hole Anatomic Graft Window Radius Right Wrist Volar Standard - [id number] Implanted:Qty: 1 on 10/15/2021 by Jeferson Gonzalez MD at [facility] Right: Wrist [employer] AR-8916VSR- 03 / / [employer] Ar-8935-16 Low Profile Screws 3.5mm 16mm Self Tap Solid Hexalobe Midfoot - [id number] Implanted:Qty: 2 on 10/15/2021 by Jeferson Gonzalez MD at [facility] Right: Wrist [employer] AR-8935-16 / / [employer] [id number] Screw Kreulock Compression Titanium 2.4x22mm - [id number] Implanted:Qty: 1 on 10/15/2021 by Jeferson Gonzalez MD at [facility] Right: Wrist [employer] AR-8724VCL- 22 / / [employer] [id number] Screw Kreulock Compression Titanium 2.4x24mm - [id number] Implanted:Qty: 2 on 10/15/2021 by Jeferson Gonzalez MD at [facility] Right: Wrist [employer] AR-8724VCL- 24 / / [employer] [id number] Screw Kreulock Compression Titanium 3.5x14mm - [id number] Implanted:Qty: 1 on 10/15/2021 by Jeferson Gonzalez MD at [facility] Right: Wrist [employer] AR-8935CL-1 4 / / Insurance COMMERCIAL GENERIC [facility] OPEN ACCESS Care Teams Law Secretary Relationship Specialty Start Date End Date Pat Lucas MD [address] [place] [address] [address] [place] [id number] PCP - General Family Medicine 10/08/21
--- OUTSIDE RECORDS SUMMARY | 2025-05-17 09:16 | XMS_ITS | Data Portability ---
Author Organization [employer], Main Office Address [address] [place] [address] Assessment No assessment recorded. Plan of Treatment Reminders Order Date Submit Date Provider Last Modified By Organization Details Last Modified Time Details Appointments None recorded. Lab HbA1c (hemoglobi n A1c), blood 2023 024 [email or web address] 2 [facility], [address], [place], [address], 5 08:28:49 lipid panel, serum 2023 024 2 [facility], [address], [place], [address], 5 08:28:49 CMP, serum or plasma 2023 024 [email or web address] 2 [facility], [address], [place], [address], 5 08:28:49 CBC w/ auto diff 2023 024 [email or web address] 2 [facility], [address], [place], [address], 5 08:28:49 TSH, ultra-sens itive, serum 2023 024 [email or web address] 2 [facility], [address], [place], [address], 5 08:28:49 Hepatitis C IgG Ab, qual, serum 2023 024 [email or web address] 2 [facility], [address], [place], [address], 5 08:28:49 testostero ne, free + total, serum [address] (Lab), [address] [place], [address], 4 07:57:36 [email or web address] lobin, total, blood [address] (Lab), [address] [place], [address], 4 08:16:11 CMP, serum or plasma 2023 024 [facility] (Lab), [address] [place], [address], 4 08:25:16 CMP, serum or plasma 2022 023 DEXTER Not available 3 21:25:44 CBC w/ auto diff 2022 023 [email or web address] Not available 3 08:14:15 amylase, serum or plasma 2022 023 DEXTER Not available 3 21:44:18 lipase, serum or plasma 2022 023 DEXTER Not available 3 23:42:51 Referral gastroente rologist referral - Please call patient to schedule. 2023 024 nina Srivastava MD, [address], [address], [place], [address], 5 14:04:08 Procedures None recorded. Surgeries None recorded. Imaging US, abdomen - RUQ US-rule out gallbladde r *Please call pt to schedule* 2022 023 [email or web address] [facility], [address], [place], [address], 3 09:40:38 Medication Orders zolpidem 10 mg tablet 2023 024 [facility], [address] [facility], [facility], [place], [place], [id number], 4 16:06:48 atorvastat in 40 mg tablet 2023 024 [facility], [address] [facility], [facility], [place], [place], [id number], 4 16:06:46 fluoxetine 40 mg capsule 2023 024 [facility], [address] [facility], [facility], [place], [place], [id number], 4 16:06:46 losartan 50 mg tablet 2023 024 [address] [facility] [facility], [address] [facility], [facility], [place], [place], [id number], 4 16:10:46 omeprazole 20 mg capsule,de layed release 2023 024 [facility], [address] [facility], [facility], [place], [place], [id number], 4 16:06:54 Mounjaro 7.5 mg/0.5 mL subcutaneo us pen injector [address] [facility] #16857, [address] [facility], [facility], [place], [place], [id number], 4 15:52:10 sucralfate 1 gram tablet 2022 023 [email or web address] #97619, [address], [place], [place], [id number], 15:41:12 pantoprazo le 40 mg tablet,del ayed release 2022 023 [email or web address] [facility] #50126, [address], [place], [place], [id number], 15:06:22 Patient TargetsNo targets recorded. Patient Instructions Encounter Date Encounter Id Patient Instructions Last Modified By Organization Details Last Modified Time 09/22/2024 [id number] diabetic foot exam* [email or web address] Not available 01/06/2025 09:47:14 Follow up in 6 months Obtain labs Tests: Referral: Dr. 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 Not Available [facility] (Lab) [address] [place], [address], 06/05/2023 21:01:17 06/05/2006/05/2023 COMPR EHENS MUNIRA METAB OLIC PANEL sodium 137 mmol/ L 137-14 5 Not Available [facility] (Lab) [address] [place], [address], 06/05/2023 21:25:44 06/05/2006/05/2023 COMPR EHENS MUNIRA METAB OLIC PANEL potassium 4.5 mmol/ L 3.5-5. 1 Not Available [facility] (Lab) [address] [place], [address], 06/05/2023 21:25:44 06/05/20 23 06/05/2023 COMPR EHENS MUNIRA METAB OLIC PANEL chloride 102 mmol/ L 98-107 Not Available [facility] (Lab) [address] [place], [address], 06/05/2023 21:25:44 06/05/20 23 06/05/2023 COMPR EHENS MUNIRA METAB OLIC PANEL carbon dioxide 25 mmol/ L 22-30 Not Available [facility] (Lab) [address] [place], [address], 06/05/2023 21:25:44 06/05/20 23 06/05/2023 COMPR EHENS MUNIRA METAB OLIC PANEL anion gap 14.5 mmol/ L 14-22 Not Available [facility] (Lab) [address] [place], [address], 06/05/2023 21:25:44 06/05/20 23 06/05/2023 COMPR EHENS MUNIRA METAB OLIC PANEL glucose 160 mg/dL 70-99 high Not Available [facility] (Lab) [address] [place], [address], 06/05/2023 21:25:44 06/05/20 23 06/05/2023 COMPR EHENS MUNIRA METAB OLIC PANEL BUN 23 mg/dL 8-19 high Not Available [facility] (Lab) [address] [place], [address], 06/05/2023 21:25:44 06/05/20 23 06/05/2023 COMPR EHENS MUNIRA METAB OLIC PANEL creatinine 1.02 mg/dL 0.66-1 .25 Not Available [facility] (Lab) [address] [place], [address], 06/05/2023 21:25:44 06/05/20 23 06/05/2023 COMPR EHENS MUNIRA METAB OLIC PANEL GFR >60 Refer ence Range : Verner ge GFR Healt hy Adult : >60 [...] calcu lator is avail able on the [facility] websi te: [email or web address] :[email or web address] [email or web address]/gf [email or web address] culat or Not Available [facility] (Lab) [address] [place], [address], 06/05/2023 21:25:44 06/05/20 23 06/05/2023 COMPR EHENS MUNIRA METAB OLIC PANEL alkaline phosphatase 96 U/L 38-126 Not Available [facility] (Lab) [address] [place], [address], 06/05/2023 21:25:44 06/05/2006/05/2023 COMPR EHENS MUNIRA METAB OLIC PANEL alanine aminotransfe rase 121 U/L 0-50 high Not Available [facility] (Lab) [address] [place], [address], 06/05/2023 21:25:44 06/05/20 23 06/05/2023 COMPR EHENS MUNIRA METAB OLIC PANEL aspartate aminotransfe rase 74 U/L 15-46 high Not Available [facility] (Lab) [address] [place], [address], 06/05/2023 21:25:44 06/05/20 23 06/05/2023 COMPR EHENS MUNIRA METAB OLIC PANEL bilirubin, total 0.90 mg/dL 0.20-1 .30 Not Available [facility] (Lab) [address] [place], [address], 06/05/2023 21:25:44 06/05/20 23 06/05/2023 COMPR EHENS MUNIRA METAB OLIC PANEL calcium 9.3 mg/dL 8.4-10 .2 Not Available [facility] (Lab) [address] [place], [address], 06/05/2023 21:25:44 06/05/20 23 06/05/2023 COMPR EHENS MUNIRA METAB OLIC PANEL total protein 7.7 g/dL 6.3-8. 2 Not Available [facility] (Lab) [address] [place], [address], 06/05/2023 21:25:44 06/05/20 23 06/05/2023 COMPR EHENS MUNIRA METAB OLIC PANEL albumin 4.6 g/dL 3.4-5. 0 Not Available [facility] (Lab) [address] [place], [address], 06/05/2023 21:25:44 06/05/20 23 06/05/2023 COMPR EHENS MUNIRA METAB OLIC PANEL globulin 3.1 g/dL 2.6-4. 2 Not Available [facility] (Lab) [address] [place], [address], 06/05/2023 21:25:44 06/05/20 23 06/05/2023 COMPR EHENS MUNIRA METAB OLIC PANEL A/G ratio 1.5 ratio 1.0-2. 0 Not Available [facility] (Lab) [address] [place], [address], 06/05/2023 21:25:44 06/05/20 23 06/05/2023 AMYLA SE SERUM amylase 64 U/L 30-110 Not Available [facility] (Lab) [address] [place], [address], 06/05/2023 23:42:49 06/05/20 23 06/05/2023 LIPAS E SERUM lipase 93 U/L 23-300 Not Available [facility] (Lab) [address] [place], [address], 06/05/2023 23:42:51 06/19/20 23 06/20/2023 CBC WITH DIFFE RENTI AL/PL ATELE T WBC 7.6 x10e3 /uL 3.4-10 .8 Not Available [facility] ([facility]) [address] [place], [address], 06/20/2023 09:14:41 06/19/20 23 06/20/2023 CBC WITH DIFFE RENTI AL/PL ATELE T RBC 5.02 x10e6 /uL 4.14-5 .80 Not Available [facility] ([facility]) [address] [place], [address], 06/20/2023 09:14:41 06/19/20 23 06/20/2023 CBC WITH DIFFE RENTI AL/PL ATELE T hemoglobin 14.8 g/dL 13.0-1 7.7 Not Available [facility] ([facility]) [address] [place], [address], 06/20/2023 09:14:41 06/19/20 23 06/20/2023 CBC WITH DIFFE RENTI AL/PL ATELE T hematocrit 42.7 % 37.5-5 1.0 Not Available [facility] ([facility]) [address] [facility], [place], [address], 06/20/2023 09:14:41 06/19/20 23 06/20/2023 CBC WITH DIFFE RENTI AL/PL ATELE T MCV 85 fL 79-97 Not Available [facility] ([facility]) [address] [facility], [place], [address], 06/20/2023 09:14:41 06/19/20 23 06/20/2023 CBC WITH DIFFE RENTI AL/PL ATELE T MCH 29.5 pg 26.6-3 3.0 Not Available [facility] ([facility]) [address] [facility], [place], [address], 06/20/2023 09:14:41 06/19/20 23 06/20/2023 CBC WITH DIFFE RENTI AL/PL ATELE T MCHC 34.7 g/dL 31.5-3 5.7 Not Available [facility] ([facility]) [address] [facility], [place], [address], 06/20/2023 09:14:41 06/19/20 23 06/20/2023 CBC WITH DIFFE RENTI AL/PL ATELE T RDW 13.2 % 11.6-1 5.4 Not Available [facility] ([facility]) [address] [facility], [place], [address], 06/20/2023 09:14:41 06/19/20 23 06/20/2023 CBC WITH DIFFE RENTI AL/PL ATELE T platelets 345 x10e3 /uL 150-45 0 Not Available [facility] ([facility]) [address] [facility], [place], [address], 06/20/2023 09:14:41 06/19/20 23 06/20/2023 CBC WITH DIFFE RENTI AL/PL ATELE T neutrophils 60 % not estab. Not Available [facility] ([facility]) [address] [facility], [place], [address], 06/20/2023 09:14:41 06/19/20 23 06/20/2023 CBC WITH DIFFE RENTI AL/PL ATELE T lymphs 29 % not estab. Not Available [facility] ([facility]) [address] [facility], [place], [address], 06/20/2023 09:14:41 06/19/20 23 06/20/2023 CBC WITH DIFFE RENTI AL/PL ATELE T monocytes 8 % not estab. Not Available [facility] ([facility]) [address] [facility], [place], [address], 06/20/2023 09:14:41 06/19/20 23 06/20/2023 CBC WITH DIFFE RENTI AL/PL ATELE T eos 2 % not estab. Not Available [facility] ([facility]) [address] [facility], [place], [address], 06/20/2023 09:14:41 06/19/20 23 06/20/2023 CBC WITH DIFFE RENTI AL/PL ATELE T basos 1 % not estab. Not Available [facility] ([facility]) [address] [facility], [place], [address], 06/20/2023 09:14:41 06/19/20 23 06/20/2023 CBC WITH DIFFE RENTI AL/PL ATELE T immature cells TRANSMISSION DESIGN ENGINEER Not Available [facility] ([facility]) [address] [facility], [place], [address], 06/20/2023 09:14:41 06/19/20 23 06/20/2023 CBC WITH DIFFE RENTI AL/PL ATELE T neutrophils (absolute) 4.5 x10e3 /uL 1.4-7. 0 Not Available [facility] ([facility]) [address] [place], [address], 06/20/2023 09:14:41 06/19/20 23 06/20/2023 CBC WITH DIFFE RENTI AL/PL ATELE T lymphs (absolute) 2.2 x10e3 /uL 0.7-3. 1 Not Available [facility] ([facility]) [address] [facility], [place], [address], 06/20/2023 09:14:41 06/19/20 23 06/20/2023 CBC WITH DIFFE RENTI AL/PL ATELE T monocytes(ab solute) 0.6 x10e3 /uL 0.1-0. 9 Not Available [facility] ([facility]) [address] [place], [address], 06/20/2023 09:14:41 06/19/20 23 06/20/2023 CBC WITH DIFFE RENTI AL/PL ATELE T eos (absolute) 0.2 x10e3 /uL 0.0-0. 4 Not Available [facility] ([facility]) [address] [facility], [place], [address], 06/20/2023 09:14:41 06/19/20 23 06/20/2023 CBC WITH DIFFE RENTI AL/PL ATELE T baso (absolute) 0.1 x10e3 /uL 0.0-0. 2 Not Available [facility] ([facility]) [address] [place], [address], 06/20/2023 09:14:41 06/19/20 23 06/20/2023 CBC WITH DIFFE RENTI AL/PL ATELE T immature granulocytes 0 % not estab. Not Available [facility] ([facility]) [address] [place], [address], 06/20/2023 09:14:41 06/19/20 23 06/20/2023 CBC WITH DIFFE RENTI AL/PL ATELE T immature grans (abs) 0.0 x10e3 /uL 0.0-0. 1 Not Available [facility] ([facility]) [address] [place], [address], 06/20/2023 09:14:41 06/19/20 23 06/20/2023 CBC WITH DIFFE RENTI AL/PL ATELE T NRBC TRANSMISSION DESIGN ENGINEER Not Available [facility] ([facility]) [address], [place], [address], 06/20/2023 09:14:41 06/19/20 23 06/20/2023 CBC WITH DIFFE RENTI AL/PL ATELE T hematology comments: TRANSMISSION DESIGN ENGINEER Not Available [facility] ([facility]) [address], [place], [address], 06/20/2023 09:14:41 06/19/20 23 06/20/2023 COMP. METAB OLIC PANEL (14) glucose 141 mg/dL 70-99 above high normal Not Available [facility] ([facility]) [address] [facility], [place], [address], 06/20/2023 09:14:42 06/19/20 23 06/20/2023 COMP. METAB OLIC PANEL (14) BUN 17 mg/dL 6-24 Not Available [facility] ([facility]) [address] [facility], [place], [address], 06/20/2023 09:14:42 06/19/20 23 06/20/2023 COMP. METAB OLIC PANEL (14) creatinine 1.05 mg/dL 0.76-1 .27 Not Available [facility] ([facility]) [address] [facility], [place], [address], 06/20/2023 09:14:42 06/19/20 23 06/20/2023 COMP. METAB OLIC PANEL (14) eGFR 89 mL/mi n/1.7 3 >59 Not Available [facility] ([facility]) [address] [facility], [place], [address], 06/20/2023 09:14:42 06/19/20 23 06/20/2023 COMP. METAB OLIC PANEL (14) BUN/creatini ne ratio 16 9-20 Not Available [facility] ([facility]) [address] [place], [address], 06/20/2023 09:14:42 06/19/20 23 06/20/2023 COMP. METAB OLIC PANEL (14) sodium 138 mmol/ L 134-14 4 Not Available [facility] ([facility]) [address] [place], [address], 06/20/2023 09:14:42 06/19/20 23 06/20/2023 COMP. METAB OLIC PANEL (14) potassium 4.0 mmol/ L 3.5-5. 2 Not Available [facility] ([facility]) [address] [facility], [place], [address], 06/20/2023 09:14:42 06/19/20 23 06/20/2023 COMP. METAB OLIC PANEL (14) chloride 99 mmol/ L 96-106 Not Available [facility] ([facility]) [address] [place], [address], 06/20/2023 09:14:42 06/19/20 23 06/20/2023 COMP. METAB OLIC PANEL (14) carbon dioxide, total 23 mmol/ L 20-29 Not Available [facility] ([facility]) [address] [place], [address], 06/20/2023 09:14:42 06/19/20 23 06/20/2023 COMP. METAB OLIC PANEL (14) calcium 9.5 mg/dL 8.7-10 .2 Not Available [facility] ([facility]) [address] [place], [address], 06/20/2023 09:14:42 06/19/20 23 06/20/2023 COMP. METAB OLIC PANEL (14) protein, total 7.3 g/dL 6.0-8. 5 Not Available [facility] ([facility]) [address] [place], [address], 06/20/2023 09:14:42 06/19/20 23 06/20/2023 COMP. METAB OLIC PANEL (14) albumin 4.6 g/dL 4.1-5. 1 Not Available [facility] ([facility]) [address] [place], [address], 06/20/2023 09:14:42 06/19/20 23 06/20/2023 COMP. METAB OLIC PANEL (14) globulin, total 2.7 g/dL 1.5-4. 5 Not Available [facility] ([facility]) [address] [place], [address], 06/20/2023 09:14:42 06/19/20 23 06/20/2023 COMP. METAB OLIC PANEL (14) A/G ratio 1.7 1.2-2. 2 Not Available [facility] ([facility]) [address] [place], [address], 06/20/2023 09:14:42 06/19/20 23 06/20/2023 COMP. METAB OLIC PANEL (14) bilirubin, total 0.4 mg/dL 0.0-1. 2 Not Available [facility] ([facility]) [address] [place], [address], 06/20/2023 09:14:42 06/19/20 23 06/20/2023 COMP. METAB OLIC PANEL (14) alkaline phosphatase 101 IU/L 44-121 Not Available [facility] ([facility]) [address] [place], [address], 06/20/2023 09:14:42 06/19/20 23 06/20/2023 COMP. METAB OLIC PANEL (14) AST (SGOT) 36 IU/L 0-40 Not Available [facility] ([facility]) [address] [place], [address], 06/20/2023 09:14:42 06/19/20 23 06/20/2023 COMP. METAB OLIC PANEL (14) ALT (SGPT) 72 IU/L 0-44 above high normal Not Available [facility] ([facility]) [address] [place], [address], 06/20/2023 09:14:42 03/18/20 24 03/19/2024 COMP. METAB OLIC PANEL (14) glucose 136 mg/dL 70-99 above high normal Not Available [facility] ([facility]) [address] [place], [address], 03/19/2024 08:25:16 03/18/20 24 03/19/2024 COMP. METAB OLIC PANEL (14) BUN 10 mg/dL 6-24 Not Available [facility] ([facility]) [address] [place], [address], 03/19/2024 08:25:16 03/18/20 24 03/19/2024 COMP. METAB OLIC PANEL (14) creatinine 0.86 mg/dL 0.76-1 .27 Not Available [facility] ([facility]) [address] [place], [address], 03/19/2024 08:25:16 03/18/20 24 03/19/2024 COMP. METAB OLIC PANEL (14) eGFR 109 mL/mi n/1.7 3 >59 Not Available [facility] ([facility]) [address] [place], [address], 03/19/2024 08:25:16 03/18/20 24 03/19/2024 COMP. METAB OLIC PANEL (14) BUN/creatini ne ratio 12 9-20 Not Available [facility] ([facility]) [address] [place], [address], 03/19/2024 08:25:16 03/18/20 24 03/19/2024 COMP. METAB OLIC PANEL (14) sodium 140 mmol/ L 134-14 4 Not Available [facility] ([facility]) [address] [place], [address], 03/19/2024 08:25:16 03/18/20 24 03/19/2024 COMP. METAB OLIC PANEL (14) potassium 3.9 mmol/ L 3.5-5. 2 Not Available [facility] ([facility]) [address] [place], [address], 03/19/2024 08:25:16 03/18/20 24 03/19/2024 COMP. METAB OLIC PANEL (14) chloride 103 mmol/ L 96-106 Not Available [facility] ([facility]) [address] [place], [address], 03/19/2024 08:25:16 03/18/20 24 03/19/2024 COMP. METAB OLIC PANEL (14) carbon dioxide, total 22 mmol/ L 20-29 Not Available [facility] ([facility]) [address] [place], [address], 03/19/2024 08:25:16 03/18/20 24 03/19/2024 COMP. METAB OLIC PANEL (14) calcium 8.9 mg/dL 8.7-10 .2 Not Available [facility] ([facility]) [address] [place], [address], 03/19/2024 08:25:16 03/18/20 24 03/19/2024 COMP. METAB OLIC PANEL (14) protein, total 6.7 g/dL 6.0-8. 5 Not Available [facility] ([facility]) [address] [place], [address], 03/19/2024 08:25:16 03/18/20 24 03/19/2024 COMP. METAB OLIC PANEL (14) albumin 4.3 g/dL 4.1-5. 1 Not Available [facility] ([facility]) [address] [place], [address], 03/19/2024 08:25:16 03/18/20 24 03/19/2024 COMP. METAB OLIC PANEL (14) globulin, total 2.4 g/dL 1.5-4. 5 Not Available [facility] ([facility]) [address] [place], [address], 03/19/2024 08:25:16 03/18/20 24 03/19/2024 COMP. METAB OLIC PANEL (14) A/G ratio 1.8 1.2-2. 2 Not Available [facility] ([facility]) [address] [place], [address], 03/19/2024 08:25:16 03/18/20 24 03/19/2024 COMP. METAB OLIC PANEL (14) bilirubin, total 0.5 mg/dL 0.0-1. 2 Not Available [facility] ([facility]) [address] [place], [address], 03/19/2024 08:25:16 03/18/20 24 03/19/2024 COMP. METAB OLIC PANEL (14) alkaline phosphatase 105 IU/L 44-121 Not Available [facility] ([facility]) [address] [place], [address], 03/19/2024 08:25:16 03/18/20 24 03/19/2024 COMP. METAB OLIC PANEL (14) AST (SGOT) 36 IU/L 0-40 Not Available [facility] ([facility]) [address] [place], [address], 03/19/2024 08:25:16 03/18/20 24 03/19/2024 COMP. METAB OLIC PANEL (14) ALT (SGPT) 68 IU/L 0-44 above high normal Not Available [facility] ([facility]) [address] [facility], [place], [address], 03/19/2024 08:25:16 03/18/20 24 03/19/2024 HEMOG LOBIN A1C hemoglobin A1C 6.1 % 4.8-5. 6 above high normal Predi abete s: 5.7 - 6.4 Diabe jac: >6.4 Glyce aleksandra contr ol for adult s with diabe jac: <7.0 Not Available [facility] ([facility]) [address] [facility], [place], [address], 03/19/2024 08:25:18 07/17/20 23 07/17/2023 US, abdom en No observ ation record ed. [email or web address] [facility] [address], [place], [address], 07/17/2023 10:49:18 11/05/19 24 11/05/2023 XR, hip + pelvi s, unila teral No observ ation record ed. [email or web address] [facility] [address], [place], [address], 11/11/2023 07:53:01 11/06/19 24 11/05/2023 XR, hip + pelvi s, unila teral No observ ation record ed. [facility] [address], [place], [address], 11/12/2023 11:36:25 Result Notes None recorded. Problems Name Problem SNOMED Code Status Onset Date Resolution Date Notes Provider Name and Address Organization Details Recorded Time Hyperchol esterolem ia 06130177 Active Not Available [facility] 3 17:43:19 Disorder of thyroid gland 40127657 Completed Not Available [facility] 17:43:19 Depressiv e disorder 58428865 Active 2020 Ban Augustin, [employer] [address], [place], [address] , [place] [facility] [employer] 4 14:02:44 Hypertens munira disorder 99179417 Completed 09/22/2024 Ban Augustin APRN [address], [address], [place], [address] , [employer] 4 15:55:24 Hypogonad ism 15682724 Active 2020 Ban Augustin APRN [address], [address], [place], [address] , [employer] 4 14:02:57 Male hypogonad ism 08869079 Active 2021 Not Available [facility] 3 17:43:19 Dysuria 18740859 Completed Pat Lucas MD [address], [address], [place], [address] , [employer] 3 16:26:57 Essential hypertens ion 44062250 Active 2021 Ban Augustin APRN [address], [address], [place], [address] , [employer] 4 14:02:50 Diabetes mellitus 28071182 Active Ban Augustin APRN [address], [address], [place], [address] , [employer] 4 14:02:47 Insomnia 876365225 Active 2022 Ban Augustin APRN [address], [address], [place], [address] , [employer] 4 14:02:59 Otalgia of right ear 1532565382 Active 2022 Pat Lucas MD [address], [address], [place], [address] , [employer] 3 13:06:18 Cough 88194814 Active 2022 Pat Lucas MD [address], [address], [place], [address] , [email or web address] 3 11:20:08 Abdominal pain 29796535 Active 2022 Pat Lucas MD [address], [place], [address] , [facility] 3 08:20:26 Bronchiti s 40148763 Active 2022 Pat Lucas MD [address], [place], [address] , [facility] 3 13:23:07 Hematoche karen [id number] Active 2022 Pat Lucas MD [address], [address], [place], [address] , [facility] 3 15:41:05 Sleep apnea 48615799 Active 2022 Ban Augustin APRN [address], [address], [place], [address] , [facility] 4 14:03:11 Fatigue 89517164 Active 2022 Ban Augustin APRN [address], [address], [place], [address] , [facility] 4 14:02:53 Dysuria 93063326 Active 2022 Pat Lucas MD [address], [address], [place], [address] , [facility] 3 16:26:57 Pain of right hip joint [id number] 9102 Active 2023 Pat Lucas MD [address], [place], [address] , [facility] 4 12:26:38 Low back pain 791317258 Active 2023 Ban Augustin APRN [address], [address], [place], [address] , [place] [facility] 4 14:03:03 Gastroeso phageal reflux disease without esophagit is 449841116 Active 2023 Ban Augustin APRN [address], [facility] [address], [place], [address] , [facility] [employer] [facility] 4 16:02:26 Obesity 082919028 Active 2023 Ban Augustin APRN [address], [facility] [address], [place], [address] , [facility] [employer] [facility] [employer] [facility] 4 16:04:55 Problem Notes None recorded. Procedures Surgical History Date Name Laterality Status Provider Name and Address Organization Details Recorded Time Tonsillectomy completed Not Available [facility] 01/01/2023 17:42:30 appendectomy completed Not Available [facility] 01/01/2023 17:42:30 procedure on wrist completed Esther Alicea MA [place] [employer] [facility] [employer] 09/22/2024 15:44:00 Imaging Results None recorded. Procedure [...] Not Available Not Available BD Regular Bevel [place] 20 gauge x 1 USE TO DRAW [...] in Arterial blood by Pulse oximetry Systolic And Diastolic Provider Name and Address Organization Details Last Updated DateTime 4 172.72 cm 44.1 kg/m2 575124. 79 g 97.9 [degF] 84 /min 97 % 97 % 148/94 mm[Hg] Karen Boggs RN [facility] [employer] 4 15:08:27 Date Recorded Body height Systolic And Diastolic Provider Name and Address Organization Details Last Updated DateTime 03/25/2023 172.72 cm 136/84 mm[Hg] Real Hernandez RN [facility] [employer] 03/25/2023 08:55:09 Date Recorded Body height Body mass index (BMI) Body weight Body temperature Heart rate Oxygen saturation Oxygen saturation in Arterial blood by Pulse oximetry Systolic And Diastolic Provider Name and Address Organization Details Last Updated DateTime 3 172.72 cm 48 kg/m2 066408. 19 g 97 [degF] 110 /min 94 % 94 % 130/88 mm[Hg] Real Hernandez RN [facility] [employer] 3 08:07:27 Date Recorded Body height Provider Name an d Address Organization Details Last Updated DateTime 06/19/2023 172.72 cm Nini Camp LPN [facility] [employer] 06/19/2023 09:03:54 Date Recorded Body height Body mass index (BMI) Body weight Body temperature Heart rate Oxygen saturation Oxygen saturation in Arterial blood by Pulse oximetry Systolic And Diastolic Provider Name and Address Organization Details Last Updated DateTime 4 172.72 cm 41.4 kg/m2 446743. 12 g 98 [degF] 101 /min 98 % 98 % 150/98 mm[Hg] Esther Alicea MA [facility] [employer] 4 15:40:05 Social History Question Answer Notes LastModified by Organization Details LastModified Time Tobacco Smoking Status Former Smoker quit 2012 Not Available [employer] 01/01/2023 17:42:23 Do You Wear A Helmet When Biking? Yes MIGRATION.0301 [id number] Information not available 01/01/2023 What Is Your Level Of Caffeine Consumption? Moderate MIGRATION.030 745755 Information not available 01/01/2023 In The 14 Days Before Symptom Onset, Have You Had Close Contact With A Laboratory-confi rmed COVID-19 While That Case Was Ill? No MIGRATION.030 194487 Information not available 01/01/2023 In The 14 Days Before Symptom Onset, Have You Had Close Contact With A Person Who Is Under Investigation For COVID-19 While That Person Was Ill? No MIGRATION.0301 600950 Information not available 01/01/2023 What Type Of Diet Are You Following? REGULAR MIGRATION.030 172165 Information not available 01/01/2023 Which Illicit Or Recreational Drugs Have You Used? Jose D twissangita Information not available 09/22/2024 What Is The Highest Grade Or Level Of School You Have Completed Or The Highest Degree You Have Received? [id number] MIGRATION.030 602151 Information not available 01/01/2023 Have There Been Any Changes To Your Family Or Social Situation? No MIGRATION.0301 913277 Information not available 01/01/2023 When Did You Quit Smoking? 6-10yearssincelastc igarette MIGRATION.0301 517913 Information not available 01/01/2023 Are There Any Guns Present In Your Home? No MIGRATION.0301 889001 Information not available 01/01/2023 Do You Use Insect Repellent Routinely? No MIGRATION.0301 942832 Information not available 01/01/2023 Where Do You Live? SingleLevelHouse MIGRATION.0301 062900 Information not available 01/01/2023 What Was The Date Of Your Most Recent Tobacco Screening? 09/22/2024 Information not available 09/22/2024 What Is Your Current Pack Years? 30ormorepackyears MIGRATION.0301 940382 Information not available 01/01/2023 Have You Ever Been Counseled For Unhealthy Alcohol Use? No MIGRATION.0301 473866 Information not available 01/01/2023 Do You Have Any Pets? No MIGRATION.0301 149311 Information not available 01/01/2023 What Is Your Relationship Status? MIGRATION.0301 292550 Information not available 01/01/2023 Do You Use Your Seat Belt Or Car Seat Routinely? Yes MIGRATION.0301 624633 Information not available 01/01/2023 Do You Have Smoke And Carbon Monoxide Detectors In Your Home? Yes MIGRATION.0301 143860 Information not available 01/01/2023 At What Age Did You Start Smoking Tobacco? 14 MIGRATION.0301 514308 Information not available 01/01/2023 Are You Passively Exposed To Smoke? No MIGRATION.0301 438468 Information not available 01/01/2023 Are There Any Smokers In Your House? No MIGRATION.0301 274920 Information not available 01/01/2023 Do You Participate In Social Media? No MIGRATION.0301 962711 Information not available 01/01/2023 Do You Use Sunscreen Routinely? Yes MIGRATION.0301 935573 Information not available 01/01/2023 Has Tobacco Cessation Counseling Been Provided? No MIGRATION.0301 915037 Information not available 01/01/2023 Have You Recently Traveled Abroad? No MIGRATION.0301 277139 Information not available 01/01/2023 Have You Used IV Drugs? No Information not available 09/22/2024 Are You Currently In School? No MIGRATION.0301 540327 Information not available 01/01/2023 Do You Have Any Dietary Restrictions? No MIGRATION.0301 043719 Information not available 01/01/2023 How Many Years Have You Used E-cigarettes Or Vape? 2013 MIGRATION.0301 960180 Information not available 01/01/2023 Sex: Unknown Functional Status Question Answer Note LastModified by Organizat ion Details LastModified Time Do you use any illicit or recreational drugs? Yes Information not available 09/22/2024 Do you or have you ever used any other forms of tobacco or nicotine? Yes MIGRATION.561462 0410 Information not available 01/01/2023 What is your level of alcohol consumption? Occasional MIGRATION.166371 0556 Information not available 01/01/2023 Do you or have you ever used smokeless tobacco? 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 Former user of electronic cigarettes Information not available 09/22/2024 What is your exercise level? None MIGRATION.697048 8667 Information not available 01/01/2023 Mental Status Question Answer Note LastModified by Organizat ion Details LastModified Time Do you feel stressed (tense, restless, nervous, or anxious, or unable to sleep at night)? [id number] MIGRATION.[id number] 6 Information not available 01/01/2023 Family History Relationship Description Onset Age of this Age Resolved Age Notes LastModified by Organization Details LastModified Time Mother Malignant tumor of breast MIGRATION.763 [id number] Not available 01/01/2023 17:42:30 Mother Bipolar disorder MIGRATION.491 3536006 Not available 01/01/2023 17:42:30 Mother Cerebrovascu lar accident MIGRATION.857 1555240 Not available 01/01/2023 17:42:30 Maternal Grandfather Myocardial infarction MIGRATION.525 0753016 Not available 01/01/2023 17:42:30 Paternal Grandfather Myocardial infarction MIGRATION.629 5685738 Not available 01/01/2023 17:42:30 Medical History No medical history recorded. Immunizations Vaccine Type Date Status Note Provider Nam e and Address Organization Details Recorded Time COVID-19, mRNA, LNP-S, PF, 30 mcg/0.3 mL dose 06/03/2021 completed Ban Augustin, JASON [address] [facility] [address], [place], [address], [facility] [employer] 09/21/2024 13:59:16 Past Encounters Encounter ID Performer Location Encounter Start Date Encounter Closed Date Diagnosis/Indication Diagnosis SNOMED-CT Code Diagnosis ICD10 Code Diagnosis Note [id number] Pat Lucas MD [facility] [address] [facility] [facility] [address] [facility] [address] [facility] [place] [address] 06/19/2021 00:00:00 07/02/2021 19:37:00 [id number] aPt Lucas MD [facility] [address] [facility] [address] [place] [address] 11/07/2021 00:00:00 11/07/2021 09:03:10 [id number] PATTI Moore [facility] [place] [address] [place] [address] 11/27/2021 00:00:00 11/27/2021 10:27:23 [id number] Pat Lucas MD [facility] [place] [address] [place] [address] 12/26/2021 00:00:00 12/30/2021 21:01:13 [id number] Pat Lucas MD [facility] [place] [address] [place] [address] 01/23/2022 00:00:00 01/23/2022 15:29:09 [id number] Pat Lucas MD [facility] [place] [address] [place] [address] 05/01/2022 00:00:00 05/02/2022 08:21:46 [id number] PATTI Moore [facility] [place] [address] [place] [address] 06/12/2022 00:00:00 06/12/2022 19:57:25 [id number] Pat Lucas MD [facility] [place] [address] [place] [address] 07/02/2022 00:00:00 07/02/2022 22:32:30 [id number] Pat Lucas MD [facility] [place] [address] [place] [address] 12/03/2022 00:00:00 12/03/2022 11:24:55 [id number] ISAAK Alvarenga S[facility] [place] [address] [place] [address] 03/21/2023 14:00:01 03/21/2023 14:22:27 [id number] Pat Lucas MD [facility] Primary Care [address] [place] [address] 03/25/2023 08:38:58 03/25/2023 15:45:48 [id number] Pat Lucas MD [facility] Primary [facility] [address] [place] [address] 06/05/2023 08:00:27 06/05/2023 08:39:48 Abdominal pain 65309911 R10.9 [place] foodsPush clear fluidsChec k labsPantop razole 40 mg bidsulcral fate up to 4x per day before eatingok to continue otc pepcid/[place] RUQif no improvemen t next week, consider CT scan and/or GI referralca ll/return if no improvemen t in 1-2 days or sooner if neededrevi ewed s/s that warrant urgent/adalberto rgent eval in meantime [id number] Pat Lucas MD [address] [place] [address] 06/19/2023 09:00:47 06/19/2023 09:56:47 [id number] Pat Lucas MD [address] [place] [address] 03/18/2024 14:51:03 03/18/2024 16:15:39 Diabetes mellitus 83176459 E11.9 -chronic, stable-[place] s not check blood sugar-26lb weight loss since last visit-was using mounjaro 5mg with positive results-wi ll increase to 7.5mg Male hypogonadism 468575 06 E29.1 -hx of low testostero ne-labs obtained [id number] David ferreira MD [facility] Primary Care [address] [place] [address] 09/22/2024 15:30:16 09/22/2024 16:15:05 Diabetes mellitus 77923466 E11.9 Screening for malignant neoplasm of colon 089700722 Z12.11 Hepatitis C screening 41 8302201 Z11.59 Hyperlipidemia 55234793 E78.5 Renewal of prescription 055177412 Z76.0 Insomnia 247028676 G47.0 0 Gastroesop hageal reflux disease without esophagitis 202155226 K21.9 Essential hypertension 82573991 I10 Health Concerns Section Related Observation LastModified by Organization Detai ls LastModified Time None Recorded Concern Status LastModified by Organization Details LastModified Time None Recorded Advance Directives Directive None Recorded Payers Insurance Date Sequence Insurance Name Policy Number Policy Lynch Covered Member ID Lynch Member ID Guarantor Name 06/05/2023 1 [employer] (PPO) [id number] Vijay Draper [employer] [id number] Vijay Draper Radha 04/06/2025 1 [facility] [employer] PLAN MANAGEMENT (PPO) [id number] Vijay Draper Radha [id number] Vijay Draper Radha Notes Date Note Type [...] somnolence. Pat Lucas MD [address], [facility] [address], [place], [address], [employer] 10/06/2023 19:23:17 03/18/2024 text/html pt is here for labs and DIAN Mackenzie [address], [facility] [address], [place], [address], [employer] 03/18/2024 15:32:48 09/22/2024 text/html Vijay presents today for medication follow up. He states that he would like to restart Mounjaro for his diabetes. He states that he is having a panic attack and he would like to see psychiatry to help with his anxiety and depression. Ban Augustin APRN [address] [facility], [place], [address], [place] [facility] 09/22/2024 16:11:23
--- OUTSIDE RECORDS SUMMARY | 2025-05-17 09:16 | XMS_ITS | Clinical Summary ---
Author Organization [facility] Address [address] [facility] [place] [address] Care Team Providers Care Long Term Name Role Phone Pat Lucas MD Primary Care Provider [phone] Source Comments [facility] [email or web address],non-owned Affiliates and Associated Physician Practices is amultiple site organization consisting of ambulatory clinics and hospital sitesin [place], [place], [place] and [place]. This disclosure is being madepursuant to the Care Everywhere program and may not contain all information available regarding this patient. Last updated 18.[facility] [email or web address] Allergies No known active allergies Medications * [...] on file Legal Sex Male 2:33 PM [employer] Gender Identity Not on file Sexual Orientation Not on file Last Filed Vital Signs Vital Sign Reading Time Taken Comments Blood Pressure - - Pulse - - Temperature - - Respiratory Rate - - Oxygen Saturation - - Inhaled Oxygen Concentration - - Weight 146.1 kg (322 lb) 01/02/2022 10:02 AM [employer] Height 172.7 cm (5' 8) 01/02/2022 10:02 AM [employer] Body Mass Index 48.96 01/02/2022 10:02 AM [employer] Plan of Treatment Health Maintenance Due Date [...] of 3 - 19+ 3-dose series) 1997 PNEUMOCOCCAL VACCINE (1 of 2 - PCV) 1997 DIABETES RETINOPATHY SCREENING 01/06/2022 DIABETES-FOOT EXAM WITH MONOFILAMENT 01/06/2022 DIABETES-HGB A1C 01/06/2022 DIABETES-SERUM CREATININE 10/16/20222020, 10/16/2021 COVID-19 VACCINE (2 - 2023-2 5 season) 2024 06/03/2021 DEPRESSION SCREENING 11/03/2024 DIABETES - URINE PROTEIN SCREENING 11/03/2024 10/15/2021 INFLUENZA VACCINE (#1) 2025 ZOSTER VACCINE (1 of 2) 2028 [...] age to complete this topic Insurance [employer] SELF PAY NO INSURANCE Member Subscriber Plan / Payer (Ef fective for All Dates) Name:Vijay Garcia Member ID:Not on file Relation to Subscriber:Not on file Name:VIJAY GARCIA Subscriber ID:Not on file Address: [address] [place], [place] [id number] Payer ID:Not on file Group ID:Not on file Type:Self Pay Address: [place], [place] [employer] Care Teams Long Term Relationship Specialty Start Date End Date Pat Lucas MD [address] [place] [id number] [facility] - General 01/02/22
--- OUTSIDE RECORDS SUMMARY | 2025-05-17 09:17 | XMS_ITS | Data Portability ---
Author Organization [facility] Andree Marquez Address [address] [facility] [place] [address] Care Team Providers Care Supervisor Grower Name Role Phone RUI HOLLINGSWORTH Primary Care Provider Unavailabl e Assessment No assessment recorded. Plan of Treatment Reminders Order Date Submit Date Provider Last Modified By Organization Details Last Modified Time Details Appointments None recorded. Lab lipid panel, serum 2019 020 DEXTRE HOLT, [address] [place] [address], [facility] [address], [place], [address], 0 12:35:44 HbA1c (hemoglobi n A1c), blood 2019 020 DEXTER In-Office Order, Internal Use Only DO Not Attach Compendium DO Not Attach Compendium, Do Not Delete/merge, [id number] 10:27:33 microalbum in/creatin ine, mass ratio, urine 2019 020 DEXTER HOLT, [address] [place] [address], [address], [place], [address], 0 12:35:44 CMP, serum or plasma 2019 020 DEXTER HOLT, [address] [place] [address], [address], [place], [address], 0 12:35:45 CBC w/ auto diff 2019 020 DEXTER HOLT, [address] [place] [address], [address], [place], [address], 0 12:35:44 testostero ne, free + total, serum 2019 020 DEXTER LABJULIARP, [address], [address], [place], [address], 0 12:35:44 vitamin D, 25-hydroxy , total, serum 2019 020 DEXTER LABJULIARP, [address], [address], [place], [address], 0 12:35:45 TSH + free T4, serum 2019 DEXTER MONGERP, [address], [address], [place], [address], 0 12:35:45 CMP, serum or plasma 2019 020 DEXTER HOLT, [address], [address], [place], [address], 0 14:41:15 CBC w/ auto diff 2019 020 DEXTER HOLT, [address], [address], [place], [address], 0 14:41:14 lipid panel, serum 2019 020 DEXTER LABROSALINDA, [address], [address], [place], [address], 0 14:41:14 HbA1c (hemoglobi n A1c), blood 2019 020 DEXTER In-Office Order, Internal Use Only DO Not Attach Compendium DO Not Attach Compendium, Do Not Delete/merge, [id number] 15:25:55 microalbum in/creatin ine, mass ratio, urine 2019 020 DEXTER HOLT, [address], [address], [place], [address], 0 14:41:14 uric acid, serum or plasma 2018 019 DEXTER HOLT, [address], [address], [place], [address], 9 06:15:28 HbA1c (hemoglobi n A1c), blood 2018 019 herson In-Office Order, Internal Use Only DO Not Attach Compendium DO Not Attach Compendium, Do Not Delete/merge, [id number] 23:08:48 lipid panel, serum 2018 019 DEXTER HOLT, [address], [address], [place], [address], 9 06:15:28 CMP, serum or plasma 2018 019 DEXTER HOLT, [address], [address], [place], [address], 9 06:15:27 vitamin B12 + folate, serum or blood 2017 018 DEXTER HOLT, [address], [address], [place], [address], 8 07:13:39 vitamin D, 25-hydroxy , total, serum 2017 018 DEXTER HOLT, [address], [address], [place], [address], 8 07:13:40 HbA1c (hemoglobi n A1c), blood 2017 018 [facility], [address] [facility] [address], [address], [place], [address], 8 07:13:39 lipid panel, serum 2017 018 [facility], [address] [facility] [address], [address], [place], [address], 8 07:13:38 CMP, serum or plasma 2017 018 [facility], [address] [facility] [address], [address], [place], [address], 8 07:13:38 Referral orthopedic referral - Please call and schedule patient an appointmen t, please provide consult note after inital visit. Thank you! 2018 019 mayra Boone MD, [address] [place] [address] [address], [place], [address], 0 14:47:06 dermatolog ist referral 2017 018 [facility] Not available 8 17:28:41 Procedures None recorded. Surgeries None recorded. Imaging US, echocardio gram, transthora cic, complete, w/ color flow 2018 019 [facility] [place], [address] [place] [address] [address], [place], [address], 9 09:44:26 XR, knee, 3 view 2018 019 [facility], [facility], [place], [address], 9 09:50:47 US, echocardio gram 2018 [email or web address] [place] [address], [facility] [address], [place], [address], 9 18:08:53 US, echocardio gram 2017 018 [facility], [facility], [place], [address], 8 13:10:15 Medication Orders lisinopril 10 mg-hydroch lorothiazi de 12.5 mg tablet 2019 020 [id number], [address] , [place], [place], [id number], 0 14:41:06 metformin 500 mg tablet 2019 020 [facility] #45652, [address] , [place], [place], [id number], 0 15:13:18 Refresh Tears 0.5 % eye drops 2019 020 [facility] #01673, [address] [facility], [place], [place], [id number], 0 15:16:46 omeprazole 20 mg capsule,de layed release 2018 019 [facility] #36532, [address] [facility], [place], [place], [id number], 9 17:18:51 atorvastat in 40 mg tablet 2018 019 [facility] #71297, [address] [facility], [place], [place], [id number], 9 17:18:51 fluoxetine 40 mg capsule 2018 019 [facility] #69678, [address] [facility], [place], [place], [id number], 9 17:18:52 Vitamin D3 125 mcg (5,000 unit) tablet 2018 019 [facility] #23249, [address] [facility], [place], [place], [id number], 9 17:16:43 fluoxetine 40 mg capsule 2018 019 herson [facility] #70821, [address] [facility], [place], [place], [id number], 9 23:08:48 Belsomra 10 mg tablet 2017 018 ashleigh [facility] #95419, [address] [facility], [place], [place], [id number], 8 17:07:26 Patient TargetsNo targets recorded. Patient Instructions Encounter Date Encounter Id Patient Instructions Last Modified By Organization Details Last Modified Time 04/10/2018 [id number] A healthy lifestyle: care instructions [email or web address] Not available 04/10/2018 16:09:34 05/03/2019 [id number] A healthy lifestyle: care instructions [email or web address] Not available 05/03/2019 23:08:48 04/03/2020 [id number] split night slee p study* [email or web address] Not available 04/03/2020 14:36:35 Reason for Referral Program Project Manager Referral for M ultiple skin tags Referring [...] 65-99 above high normal Not Available [facility] ([facility]) [address] [place], [address], 04/11/2018 07:13:38 04/10/20 18 04/11/2018 CMP, serum or plasm a BUN 22 mg/dL 6-20 above high normal Not Available [facility] ([facility]) [address] [place], [address], 04/11/2018 07:13:38 04/10/20 18 04/11/2018 CMP, serum or plasm a creatinine 1.03 mg/dL 0.76-1 .27 Not Available [facility] ([facility]) [address] [place], [address], 04/11/2018 07:13:38 04/10/20 18 04/11/2018 CMP, serum or plasm a eGFR if nonafricn AM 91 mL/mi n/1.7 3 >59 Not Available [facility] ([facility]) [address] [place], [address], 04/11/2018 07:13:38 04/10/20 18 04/11/2018 CMP, serum or plasm a eGFR if africn AM 105 mL/mi n/1.7 3 >59 Not Available [facility] ([facility]) [address] [place], [address], 04/11/2018 07:13:38 04/10/20 18 04/11/2018 CMP, serum or plasm a BUN/creatini ne ratio 21 9-20 above high normal Not Available [facility] ([facility]) [address] [place], [address], 04/11/2018 07:13:38 04/10/20 18 04/11/2018 CMP, serum or plasm a sodium 141 mmol/ L 134-14 4 Not Available [facility] ([facility]) [address] [place], [address], 04/11/2018 07:13:38 04/10/20 18 04/11/2018 CMP, serum or plasm a potassium 4.3 mmol/ L 3.5-5. 2 Not Available [facility] ([facility]) [address] [place], [address], 04/11/2018 07:13:38 04/10/20 18 04/11/2018 CMP, serum or plasm a chloride 101 mmol/ L 96-106 Not Available [facility] ([facility]) [address] [place], [address], 04/11/2018 07:13:38 04/10/20 18 04/11/2018 CMP, serum [...] 29 20 - 29 Not Available [facility] ([facility]) [address] [place], [address], 04/11/2018 07:13:38 04/10/20 18 04/11/2018 CMP, serum or plasm a calcium 9.8 mg/dL 8.7-10 .2 Not Available [facility] ([facility]) [address] [place], [address], 04/11/2018 07:13:38 04/10/20 18 04/11/2018 CMP, serum or plasm a protein, total 7.4 g/dL 6.0-8. 5 Not Available [facility] ([facility]) [address] [place], [address], 04/11/2018 07:13:38 04/10/2004/11/2018 CMP, serum or plasm a albumin 4.8 g/dL 3.5-5. 5 Not Available [facility] ([facility]) [address] [place], [address], 04/11/2018 07:13:38 04/10/2004/11/2018 CMP, serum or plasm a globulin, total 2.6 g/dL 1.5-4. 5 Not Available [facility] ([facility]) [address] [place], [address], 04/11/2018 07:13:38 04/10/20 18 04/11/2018 CMP, serum or plasm a A/G ratio 1.8 1.2-2. 2 Not Available [facility] ([facility]) [address] [place], [address], 04/11/2018 07:13:38 04/10/20 18 04/11/2018 CMP, serum or plasm a bilirubin, total 0.5 mg/dL 0.0-1. 2 Not Available [facility] ([facility]) [address] [facility] [place], [address], 04/11/2018 07:13:38 04/10/20 18 04/11/2018 CMP, serum or plasm a alkaline phosphatase 73 IU/L 39-117 Not Available [facility]) [address] [place], [address], 04/11/2018 07:13:38 04/10/20 18 04/11/2018 CMP, serum or plasm a AST (SGOT) 20 IU/L 0-40 Not Available [facility] ([facility]) [address] [place], [address], 04/11/2018 07:13:38 04/10/20 18 04/11/2018 CMP, serum or plasm a ALT (SGPT) 42 IU/L 0-44 Not Available [facility] ([facility]) [address] [place], [address], 04/11/2018 07:13:38 04/10/20 18 04/11/2018 lipid panel , serum cholesterol, total 280 mg/dL 100-19 9 above high normal Not Available [facility] ([facility]) [address] [place], [address], 04/11/2018 07:13:38 04/10/20 18 04/11/2018 lipid panel , serum triglyceride s 203 mg/dL 0-149 above high normal Not Available [facility] ([facility]) [address] [facility], [place], [address], 04/11/2018 07:13:38 04/10/20 18 04/11/2018 lipid panel , serum HDL cholesterol 31 mg/dL >39 below low normal Not Available [facility] ([facility]) [address] [place], [address], 04/11/2018 07:13:38 04/10/20 18 04/11/2018 lipid panel , serum VLDL cholesterol michelle 41 mg/dL 5-40 above high normal Not Available [facility] ([facility]) [address] [place], [address], 04/11/2018 07:13:38 04/10/20 18 04/11/2018 lipid panel , serum LDL cholesterol calc 208 mg/dL 0-99 above high normal Not Available [facility] ([facility]) [address] [facility], [place], [address], 04/11/2018 07:13:38 04/10/20 18 04/11/2018 lipid panel [...] ol 2011; 5:133 -140 Not Available [facility] ([facility]) [address] [facility], [place], [address], 04/11/2018 07:13:38 04/10/20 18 04/11/2018 vitam in B12 + folat e, serum or blood vitamin B12 414 pg/mL 232-12 45 Not Available [facility] ([facility]) [address] [facility], [place], [address], 04/11/2018 07:13:39 04/10/20 18 04/11/2018 vitam in B12 + folat e, serum or blood folate (folic acid), serum 5.1 NG/mL >3.0 A serum folat e fabiano ntrat ion of less than 3.1 ng/mL is consi dered to repre sent clini michelle defic iency . Not Available [facility] ([facility]) [address] [facility], [place], [address], 04/11/2018 07:13:39 04/10/20 18 04/11/2018 HbA1c (hemo globi n A1c), blood hemoglobin A1C 5.8 % 4.8-5. 6 above high normal Pre-d iabet es: 5.7 - 6.4 Diabe jac: >6.4 Glyce aleksandra contr ol for adult s with diabe jac: <7.0 Not Available [facility] ([facility]) [address] [facility], [place], [address], 04/11/2018 07:13:39 04/10/20 18 04/11/2018 vitam in [...] Endoc rine Socie ty [facility] defin e vitam in D insuf ficie ncy as a level betwe en 21 and 29 ng/mL (2). 1. IOM (Inst itute of Medic ine). 2009. Dieta ry refer ence intak es for calci um and D. Kevin clark [place]: [facility] . 2. Cecilia carbone MF, Paulette day [place], Ramiro off-F errar i SORIANO, et al. Evalu ation , treat ment, and preve ntion of vitam in D defic iency : an Endoc rine Socie ty clini michelle pract ice guide line. JCEM. 2010; 96(8) :1911 -30. Not Available [facility] ([facility]) [address] [place], [address], 04/11/2018 07:13:40 05/03/20 19 05/04/2019 CMP, serum or plasm a glucose 110 mg/dL 65-99 above high normal Not Available [facility] ([facility]) [address] [place], [address], 05/04/2019 06:15:27 05/03/2005/04/2019 CMP, serum or plasm a BUN 18 mg/dL 6-24 Not Available [facility] ([facility]) [address] [place], [address], 05/04/2019 06:15:27 05/03/20 19 05/04/2019 CMP, serum or plasm a creatinine 0.92 mg/dL 0.76-1 .27 Not Available [facility] ([facility]) [address] [place], [address], 05/04/2019 06:15:27 05/03/2005/04/2019 CMP, serum or plasm a eGFR if nonafricn AM 104 mL/mi n/1.7 3 >59 Not Available [facility] ([facility]) [address] [place], [address], 05/04/2019 06:15:27 05/03/2005/04/2019 CMP, serum or plasm a eGFR if africn AM 120 mL/mi n/1.7 3 >59 Not Available [facility] ([facility]) [address] [place], [address], 05/04/2019 06:15:27 05/03/2005/04/2019 CMP, serum or plasm a BUN/creatini ne ratio 20 9-20 Not Available [facility]) [address] [place], [address], 05/04/2019 06:15:27 05/03/2005/04/2019 CMP, serum or plasm a sodium 138 mmol/ L 134-14 4 Not Available [facility] ([facility]) [address] [place], [address], 05/04/2019 06:15:27 05/03/2005/04/2019 CMP, serum or plasm a potassium 4.2 mmol/ L 3.5-5. 2 Not Available [facility] ([facility]) [address] [place], [address], 05/04/2019 06:15:27 05/03/2005/04/2019 CMP, serum or plasm a chloride 100 mmol/ L 96-106 Not Available [facility] ([facility]) [address] [place], [address], 05/04/2019 06:15:27 05/03/2005/04/2019 CMP, serum or plasm a carbon dioxide, total 23 mmol/ L 20-29 Not Available [facility] ([facility]) [address] [place], [address], 05/04/2019 06:15:27 05/03/2005/04/2019 CMP, serum or plasm a calcium 9.6 mg/dL 8.7-10 .2 Not Available [facility] ([facility]) [address] [place], [address], 05/04/2019 06:15:27 05/03/2005/04/2019 CMP, serum or plasm a protein, total 7.5 g/dL 6.0-8. 5 Not Available [facility] ([facility]) [address] [place], [address], 05/04/2019 06:15:27 05/03/2005/04/2019 CMP, serum or plasm a albumin 4.7 g/dL 3.5-5. 5 Not Available [facility] ([facility]) [address] [place], [address], 05/04/2019 06:15:27 05/03/2005/04/2019 CMP, serum or plasm a globulin, total 2.8 g/dL 1.5-4. 5 Not Available [facility] ([facility]) [address] [place], [address], 05/04/2019 06:15:27 05/03/2005/04/2019 CMP, serum or plasm a A/G ratio 1.7 1.2-2. 2 Not Available [facility] ([facility]) [address] [place], [address], 05/04/2019 06:15:27 05/03/2005/04/2019 CMP, serum or plasm a bilirubin, total 0.3 mg/dL 0.0-1. 2 Not Available [facility] ([facility]) [address] [place], [address], 05/04/2019 06:15:27 05/03/2005/04/2019 CMP, serum or plasm a alkaline phosphatase 76 IU/L 39-117 Not Available [facility] ([facility]) [address] [place], [address], 05/04/2019 06:15:27 05/03/2005/04/2019 CMP, serum or plasm a AST (SGOT) 28 IU/L 0-40 Not Available [facility] ([facility]) [address] [facility] [place], [address], 05/04/2019 06:15:27 05/03/2005/04/2019 CMP, serum or plasm a ALT (SGPT) 55 IU/L 0-44 above high normal Not Available [facility] ([facility]) [address] [place], [address], 05/04/2019 06:15:27 05/03/2005/0405/04/2019 lipid panel , serum cholesterol, total 267 mg/dL 100-19 9 above high normal Not Available [facility] ([facility]) [address] [place], [address], 05/04/2019 06:15:28 05/03/2005/04/2019 lipid panel , serum triglyceride s 426 mg/dL 0-149 above high normal Not Available [facility] ([facility]) [address] [place], [address], 05/04/2019 06:15:28 05/03/2005/04/2019 lipid panel , serum HDL cholesterol 36 mg/dL >39 below low normal Not Available [facility] ([facility]) [address] [facility], [place], [address], 05/04/2019 06:15:28 05/03/2005/04/2019 lipid panel , serum VLDL cholesterol michelle COMMEN T mg/dL 5-40 The calcu latio n for the VLDL denise stero l is not valid when trigl yceri de level is >400 mg/dL . Not Available [facility] ([facility]) [address] [facility], [place], [address], 05/04/2019 06:15:28 05/03/2005/04/2019 lipid panel , serum LDL cholesterol calc COMMEN T mg/dL 0-99 Trigl yceri de resul t indic ated is too high for an accur ate LDL denise stero l estim ation . 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 6 Tania ordonez t for gout patie nts: <6.0 Not Available [facility] ([facility]) [address] [facility], [place], [address], 05/04/2019 06:15:28 05/03/20 19 05/03/2019 HbA1c (hemo globi n A1c), blood HbA1c 6.4 Not Available In-Office Order Internal Use Only DO Not Attach Compendium DO Not Attach Compendium, Do Not Delete/merge, [id number] 05/03/2019 15:30:15 02/08/20 20 02/08/2020 HbA1c (hemo globi n A1c), blood HbA1c 6.6 Not Available In-Office Order Internal Use Only DO Not Attach Compendium DO Not Attach Compendium, Do Not Delete/merge, [id number] 02/08/2020 14:40:32 09/30/20 21 09/30/2021 XR, hand No observ ation record ed. [facility] [address], [place], [address], 10/01/2021 10:40:40 Result Notes None recorded. Problems Name Problem SNOMED Code Status Onset Date Resolution Date Notes Provider Name and Address Organization Details Recorded Time Dyspnea 210991236 Active Gloria Rivera PA-C Attn: Accounting ,[address] [place], [address] , [place] [facility] 5 13:10:26 Vitamin D deficien cy 78586662 Active Gloria Rivera PA-C Attn: Accounting ,[address] [facility], [place], [address] , [place] [facility] 5 16:13:53 Diabetes mellitus 89207814 Active Gloria Rivera PA-C Attn: Accounting ,[address] [place], [address] , [place] [facility] 6 12:18:05 [facility] hyperten phil 63905185 Active Gloria Rivera PA-C Attn: Accounting ,[address] [facility], [place], [place], [address] [place] [address] , [facility] - [facility] 6 12:18:05 Opioid dependen ce, on agonist therapy 94241992786 05 Active history of opiate - oxy and vicodin - relapsed early 2017 Gloria Rivera PA-C Attn: Accounting ,[address] [facility], [place], [place], [address] [place] [address] , [facility] - [facility] 7 10:39:30 Depressi ve disorder 14541781 Active Gloria Rivera PA-C Attn: Accounting ,[address] [facility], [place], [place], [address] [place] [address] , [facility] - [facility] 5 16:13:53 Hyperlip idemia 94276242 Active Gloria Rivera PA-C Attn: Accounting ,[address] [facility], [place], [place], [address] [place] [address] , [facility] - [facility] 5 16:13:53 Generali zed anxiety disorder 41024953 Active followee d by Dr. Kassandra Rivera PA-C Attn: Accounting ,[address] [facility], [place], [place], [address] [place] [address] , [facility] 6 09:38:51 Hypothyr oidism 05092942 Active Gloria Rivera PA-C Attn: Accounting ,[address] [facility], [place], [place], [address] [place] [address] , [facility] 5 16:13:53 Insomnia 045201281 Active Gloria Rivera PA-C Attn: Accounting ,[address] [facility], [place], [place], [address] [place] [address] , [facility] 5 16:13:53 Obesity 877089147 Active Gloria Rivera PA-C Attn: Accounting ,[address] [facility], [place], [place], [address] [place] [address] , [facility] 6 12:18:05 Increase d frequenc y of urinatio n 244098341 Active Gloria Rivera PA-C Attn: Accounting ,[address] [facility], [place], [address] , [place] [facility] 6 12:18:05 Urinary tract infectio us disease 21239627 Completed 02/08/2020 PATTI AU Attn: Accounting ,[address] [facility], [place], [address] , [place] [facility] 0 14:23:18 Noncompl iance with treatmen t 1213595 Active 2016 Gloria Rivera PA-C Attn: Accounting ,[address] [place], [address] , [facility] 7 12:25:23 Harmful pattern of use of opioid 3067249 Active 2016 Gloria Rivera PA-C Attn: Accounting ,[address] [place], [address] , [facility] 7 12:33:07 Gastroes ophageal reflux disease 557631937 Active 2016 Gloria Rivera PA-C Attn: Accounting ,[address] [place], [address] , [facility] 7 14:12:28 Increase d liver function 23974337 Active 2016 Gloria Rivera PA-C Attn: Accounting ,[address] [place], [address] , [facility] 7 12:10:30 Verruca vulgaris 32490954 Active 2016 Gloria Rivera PA-C Attn: Accounting ,[address] [place], [address] , [place] [facility] 7 13:09:34 Problem Notes None recorded. Procedures Surgical History Date Name Laterality Status Provider Name and Address Organization Details Recorded Time 0 Tonsillectomy completed Pauline Li MA [place] - [facility] 10/11/2015 15:52:05 Imaging Results None recorded. Procedure Notes None recorded. Medical Equipment None Reported. Allergies No known drug allergies Medications Name Sig Start Date Stop Date Status Note LastModified by Organization Details LastModified Time vitamin d 36903 unit caps 10/11 completed Not Available Not [...] Available Not Available Not Available amoxicillin 875 mg-potassirandy irizarry clavulanate 125 mg tablet 03/19 completed Not [...] Available Not Available Vitals Date Recorded Systolic And Diastolic Provider Name and Address Organization Details Last Updated DateTime 02/08/2020 138/100 mm[Hg] Magi AU Attn: Accounting,[address] [place], [address], [facility] 02/09/2020 10:07:37 Date Recorded Body height Body mass index (BMI) Body weight Body temperature Heart rate Oxygen saturation Oxygen saturation in Arterial blood by Pulse oximetry Provider Name and Address Organization Details Last Updated DateTime 0 172.72 cm 45.5 kg/m2 767801. 12 g 98.6 [degF] 116 /min 98 % 98 % Jelena Sheriff MA [facility] 0 14:21:53 Date Recorded Body height Provider Name an d Address Organization Details Last Updated DateTime 04/03/2020 172.72 cm Mee Euceda MA [facility] 04/03/2020 12:19:22 Date Recorded Body height Body mass index (BMI) Body weight Oxygen saturation Oxygen saturation in Arterial blood by Pulse oximetry Heart rate Body temperature Systolic And Diastolic Provider Name and Address Organization Details Last Updated DateTime 8 172.72 cm 40.4 kg/m2 702721. 57 g 97 % 97 % 92 /min 98.5 [degF] 116/74 mm[Hg] Anitra Aguilar CMA [facility] 8 10:08:28 Date Recorded Body height Heart rate Oxygen saturation Oxygen saturation in Arterial blood by Pulse oximetry Body temperature Body mass index (BMI) Body weight Systolic And Diastolic Provider Name and Address Organization Details Last Updated DateTime 9 172.72 cm 90 /min 97 % 97 % 99.4 [degF] 44.2 kg/m2 728974. 38 g 140/98 mm[Hg] Mee Euceda MA [facility] 9 15:33:12 Date Recorded Body height Body mass index (BMI) Body weight Oxygen saturation Oxygen saturation in Arterial blood by Pulse oximetry Heart rate Body temperature Systolic And Diastolic Provider Name and Address Organization Details Last Updated DateTime 9 172.72 cm 43.5 kg/m2 065794. 82 g 95 % 95 % 112 /min 98.7 [degF] 136/82 mm[Hg] Yadira Campbell MA [facility] 9 16:51:21 Social History Question Answer Notes LastModified by Organizat ion Details LastModified Time Tobacco Smoking Status Former Smoker Mee Euceda MA null, [facility] 04/03/2020 12:19:42 Do You Have An Advance Directive? No Information not available 10/11/2015 What Is Your Level Of Caffeine Consumption? Occasional Information not available 10/11/2015 How Much Tobacco Do You Chew? None Information not available 10/11/2015 What Type Of Diet Are You Following? REGULAR [email or web address] Information not available 10/11/2015 Which Illicit Or Recreational Drugs Have You Used? 0 [email or web address] Information not available 10/11/2015 Are There Any Guns Present In Your Home? No [email or web address] Information not available 10/11/2015 Hard Of Hearing Or Deaf In One Or Both Ears? No [email or web address] Information not available 10/11/2015 Legally Blind In One Or Both Eyes? No [email or web address] Information no t available 10/11/2015 Live Alone Or With Others? With Others [email or web address] Information not available 10/11/2015 What Was The Date Of Your Most Recent Tobacco Screening? 04/03/2020 Information not available 04/03/2020 How Many Children Do You Have? 1 [email or web address] Information not available 10/11/2015 Do You Use Protection During Sex? Always [email or web address] Information not available 10/11/2015 Seat Belts Used Routinely Yes Information not available 10/11/2015 Are You Sexually Active? Yes [email or web address] Information not available 10/11/2015 Smoke Alarm In Home Yes [email or web address] Information not available 10/11/2015 At What Age Did You Start Smoking Tobacco? 16 [email or web address] Information not available 10/11/2015 Are You Passively Exposed To Smoke? Yes [email or web address] Information no t available 10/11/2015 How Much Tobacco Do You Smoke? 1 PPD [email or web address] Information not available 06/18/2019 General Stress Level Low [email or web address] Information not available 10/11/2015 Has Tobacco Cessation Counseling Been Provided? Yes Information not available 05/03/2019 On What Date Was Tobacco Cessation Counseling Provided? 04/03/2020 Information not available 04/03/2020 How Many Years Have You Smoked Tobacco? 15 [email or web address] Information not available 10/11/2015 Sex: Unknown Functional Status Question Answer Note LastModified by Organizat ion Details LastModified Time What is your level of alcohol consumption? None [email or web address] Information not available 10/11/2015 Do you or have you ever used smokeless tobacco? Never used smokeless tobacco Information not available 04/03/2020 Are you able to care for yourself? Yes [email or web address] Information not available 10/11/2015 Do you or have you ever used e-cigarettes or vape? Current user of electronic cigarettes Vapes Information not available 04/03/2020 What is your exercise level? None [email or web address] Information not available 10/11/2015 Mental Status None recorded. Family History Relationship Description Onset Age of this Age Resolved Age Notes LastModified by Organization Details LastModified Time Mother Malignant tumor of breast [email or web address] Not available 2015 11:32:15 Mother Depressive disorder [email or web address] Not available 2015 11:32:15 Medical History Condition Response Coronary Artery Disease N Other N High Blood Pressure Y Atrial Fibrillation N Kidney or Bladder Problems N Thyroid Problems Y GI Problems N Depression N COPD N Blood Clots N Skin Problems N Anemia N Heart Attack (TN) N Anxiety Disorder N Diabetes Y Muscle, Joint, or Bone Problems N Seizures/Epilepsy N Acid Reflux (GERD) Y Cancer N Stroke N Asthma N Allergies N High Cholesterol Y Hepatitis N Liver Disease N Headaches N Heart Failure N Osteoporosis N Past Encounters Encounter ID Performer Location Encounter Start Date Encounter Closed Date Diagnosis/Indication Diagnosis SNOMED-CT Code Diagnosis ICD10 Code Diagnosis Note [id number] [facility] [address] [place] [phone] 0 10/11/2015 15:15:23 10/13/2015 13:11:16 Dyspnea 245357166 R06.00 Diabetes mellitus 154811 09 E11.9 Obesity 343966167 E66.9 Goal 5 lbs in the next month walking 15 minutes/da y Opioid dep endence, on agonist therapy 3566995904 105 F11.21 WIll let psych manage all psych drugs [id number] MD [facility] (Adult Med) [address] [place] [address] [phone] 0 12/12/2015 14:48:33 12/12/2015 16:22:29 Generalized anxiety disorder 21329862 F41.1 Diabetes mellitus 912760 09 E11.9 Continue on metforomin Essential hypertension 36906949 I10 WIll begin on lisinopril for BP RTC 1 week Increased frequency of urination 971789881 R35.0 UA was positive for nitrites - patient is currently taking Bactrim Will not give patient pain medication d/t hx/o opiod abuse Patient advised that if he develops n/v/fever/ chills to go to the ED - likely kidney stone that needs to be passed vs UTI Obesity 662153307 E66.9 Gained 3lbs - discussed he needs to drink more water and become more active [id number] MD [facility] (Adult Med) [address] [place] [address] [phone] 0 12/19/2015 11:04:11 12/19/2015 12:18:55 Diabetes mellitus 25475770 E11.9 Continue on metformin Advised to take with dinner Essential hypertension 52603404 I10 Continue propranolo l and lisinopril Increased frequency of urination 338826199 R35.0 Resolved Appointmen t with urology today Obesity 260896284 E66.9 Down 6lbs - discussed he needs to drink more water and become more active [id number] MD [facility] (Adult Med) [address] [place] [address] [phone] 0 03/19/2017 12:02:23 03/19/2017 12:43:30 Depressive disorder 71716671 F32.9 Advised to re-establi sh with psych and counseling Diabetes mellitus 236031 09 E11.9 WIll recheck all labs and go from there Will send for eye exam Noncomplia nce with treatment 9680957 Z91.19 Advised to stop using opioidsAdv ised that he needs to f/u as recommende d d/t HTN and DM being silent killers Advised that him being back on opioids points to him needing to see psych again - he needs to f/u as he was directed Obesity 106591539 E66.9 Down 12lbs over the last year Advised 30 minutes of exercise 5 days/week Advised to not drink her calories Advised 3 balanced meals/day with plenty of fruits and vegetables Gastroesop hageal reflux disease 843286443 K21.9 Advised to stay away from spicy and greasy foodsAdvis ed to stay away from fatty foodsDo not eat within 2 hours of going to bedStay sitting up after mealsNo smoking Essential hypertension 88651067 I10 142/92 at second check - will restart lisinopril Hyperlipidemia 77727162 E78.5 Will recheck today Hypothyroidism 97242351 E03.9 Will recheck today Vitamin D deficiency 347 40828 E55.9 Will recheck today Harmful pa ttern of use of opioid 0252368 F11.90 Heis back to using opiates - take about 1 pill/day when he is - states he takes them 3-4 days/week [id number] MD [facility] (Adult Med) [address] [place] [address] [phone] 0 04/02/2017 09:13:29 04/02/2017 09:50:15 Increased liver function 46307983 R94.5 Will begin with liver US and hepatitis panelPatie nt states that he quit drinking alcohol 6+ months ago Hyperlipidemia 87063924 E78.5 initiated atorvastat in 40mg qPMWIll likely need to increase to 80mg qPM Diabetes mellitus 584594 09 E11.9 a1c: 6.4 at last check and not taking any medication s - will continue with diet and exercise maintainan ce for DM Harmful pa ttern of use of opioid 2431597 F11.90 Heis back to using opiates - [...] sh with psych and counseling Essential hypertension 76975077 I10 126/86 NAD, WNL - right now controlled with diet and exerciseAd vised that if his BP is reguarly >140/90 to contact clinic and we will restart medication Insomnia 088256904 G47.0 0 Discussed that I will not prescribe Ambien because I know that patient is illegally taking opiods and Ambien is a controlled substance so he needs to f/u with provider prescribin g this [id number] Nathalia Perez MD [facility] (Adult Med) [address] [place] [address] [phone] 0 07/02/2017 09:10:19 07/02/2017 17:44:44 Vitamin D deficiency 64068669 E55.9 Advised to take supplement Gastroesop hageal reflux disease 083545230 K21.9 Advised to stay away from spicy and greasy foodsAdvis ed to stay away from fatty foodsDo not eat within 2 hours of going to bedStay sitting up after mealsNo smoking Hyperlipidemia 68030050 E78.5 initiated atorvastat in 40mg qPMWIll likely need to increase to 80mg qPM Increased liver function 94800449 R94.5 Given order again to complete liver USPatient states that he quit drinking alcohol 6+ months ago Diabetes mellitus 674403 09 E11.9 a1c: 6.4 at last check and not taking any medication s - will continue with diet and exercise maintainan ce for DM Eczema 73840982 L30.9 Apply plenty of lotion at least [...] at this time - patient declined Obesity 279628452 E66.9 Down 12lbs over the last year Advised 30 minutes of exercise 5 days/week Advised to not drink her calories Advised 3 balanced meals/day with plenty of fruits and vegetables Insomnia 161256400 G47.0 0 Discussed that I will not [...] with Dr. Cannon for Ambien Verruca vulgaris 0270500 3 B07.9 Offered patient a referral to derm and told him it may take a few months to get in at this time - patient declined [id number] KELSIE Zapien NP [facility] [address] [place] [address] 01/05/2018 11:27:44 01/05/2018 15:34:58 Hyperlipidemia 58097443 E78.5 Obtain fasting labs Prediabetes 406340372 R7 3.03 Obtain HgA1C Family his tory of Cardiomyopathy 032055303 Z82.49 Obtain echo Insomnia 052135213 G47.0 0 Start hydroxyzin e as directed. Continue fluoxetine . F/u 1 month Pain in right knee 94603 43126 80361 M25.561 Start PT [id number] KELSIE Zapien NP [facility] [address] [place] [address] 04/10/2018 09:57:59 04/14/2018 13:10:15 Insomnia 772383546 G47.00 - D/c hydroxyzin e- Start belsomra-C heck labs Multiple skin tags 72166 7009 L91.8 -Refer to derm Hyperlipidemia 91301961 E78.5 -Obtain fasting labs Prediabetes 920353109 R7 3.03 -Obtain HgA1C Family his tory of Cardiomyopathy 535133972 Z82.49 -Obtain echo [id number] [facility] [address] [place] [address] 05/03/2019 15:06:47 05/04/2019 14:04:44 Gout 76540998 M10.9 Patient is having burning pain in [...] t ans consider starting gabapentin . Hyperlipidemia 96181292 E78.5 -Obtain fasting labs- continue atorvastat in 10 mg Prediabetes 956625325 R7 3.03 - A1C 6.4, close to diabetes - patient is going to try lifestyle modificati on- He is to cut out junk food and start exercising . talked about recommenda tions and what foods to avoid.- f/u at 3 months- talked about starting metformin if A1C increases- Will start aiden inhibitor for kidney protection adn HTN Family his tory of Cardiomyopathy 075140021 Z82.49 Patient mother had a heritable cardiomyop athy. He never went to the echo last year and would like to get this taken care of now. - echo Depressive disorder 6213 9869 F32.9 Patient has increased anxiety and would like it to be controlled . has been on 20 mg dose for many years.-Inc rease prozac to 40 mg- return in 4 weeks- if HI/SI develop notify us, present to ER, and/or call suicide hotline Essential hypertension 20603336 I10 Patient previously diagnosed with hypertensi on [...] for dual kidney protection and HTn control [id number] Tequila Mckeon MD [facility] [address] [place] [address] 06/18/2019 16:06:00 06/21/2019 09:59:01 Pain in right knee 3219877077 12924 M25.561 Family his tory of Cardiomyopathy 600226368 Z82.49 Vitamin D deficiency 347 59171 E55.9 Moderate r ecurrent major depression 96016196 F33.1 Gastroesop hageal reflux disease 577064964 K21.9 Hyperlipidemia 13219684 E78.2 [id number] [facility] [address] [place] [address] 02/08/2020 14:10:23 02/09/2020 10:42:00 Essential hypertension 64544737 I10 BP 138/100, not WNL.Patien t previously [...] make an appointmen t sooner Diabetes mellitus 165063 09 E11.9 Last A1C 6.4 and today [...] foot exam at next visit Dry eyes 572548566 H04.1 29 [id number] [facility] [address] [place] [address] 04/03/2020 10:40:15 04/04/2020 14:24:04 Essential hypertension 22383373 I10 BP 138/100, not WNL.Luis aguilar previously [...] make an appointmen t sooner Diabetes mellitus 466031 09 E11.9 Last A1C 6.4 and today [...] - foot exam at next visit Fatigue 52665863 R53.83 Patient reports worsening fatigue is now affecting his work. drinking 3 cups of coffee, takes melatonin before bed. Does not check sugars at home. Does not take medication for DM or HTN as prescribed . He agrees to have labs done. denies sweats, weight loss. - advised to watch diet- quit smoking Sleep apnea 56116051 G47 .30 Patient with htn, hypertrigl yceride, morbid obesity (bmi 45), DM2, neck circumfere nce> 16 in presents with worsening fatigue. He has experience d increased daytime somnolence despite sleeping at night, has been told he snores before. - sleep study- control BP- checking labs Cough 50469115 R05 Patient presents with dry cough x [...] ID Guarantor Name 04/07/2020 1 [employer] - [facility] BENEFIT PLAN MANAGEMENT (PPO) Vijay Garcia [id number] Vijay Garcia 04/07/2020 1 [employer] Vijay Garcia [id number] Vijay Garcia 04/10/2018 2 [facility] (MEDICAID HMO) Vijay Garcia [id number] Vijay Garcia 05/03/2019 1 [employer] - DOS PRIOR TO 21 - [facility] BENEFITS PLAN [id number] Vijay Garcia [id number] Vijay Garcia Notes Date Note Type Note [...] son. KELSIE Zapien NP Attn: Accounting, [address] , [place], [address], [facility] 04/10/2018 16:10:05 019 text/ht ml Anxiety/DepressionReported [...] sweats. Tequila Mckeon MD Attn: Accounting, [address] [facility], [place], [address], [facility] 05/04/2019 23:49:33 019 text/ht ml Anxiety/DepressionReported [...] no weight loss; no change in bowel/bladder habits; weakness;swelling;catching/locking; popping/clicking;buckling;grinding; instability;radiation down legReflux/GERDReported bypatient.Symptomsheartburn;postpra ndial pain Quality:stabbing Severity:moderate [...] pain;heartburn;bad taste;decreased appetite Tequila Mckeon MD Attn: [address] [place], [address], [facility] 06/19/2019 18:19:50 020 text/ht ml [...] check up [facility] Attn: Accounting, [address] [place], [address], [place] [facility] 02/09/2020 10:11:09 020 text/ht ml CoughReported bypatient.Severity:improving [...] to vape. [facility] Attn: Accounting, [address] [place], [address], [facility] 04/03/2020 13:13:02
--- OUTSIDE RECORDS SUMMARY | 2025-05-17 09:17 | XMS_ITS | Patient Health Record ---
Author Organization [facility] [employer] [facility] Address [address] [place] [address] Care Team Providers Care Telesales Manager Name Role Phone Mayra MULLIGAN [facility] Primary Care Provider Temi Cool Unavailable [phone] Allergies No Known Allergies Reason For Referral No Information Medications Medication SIG (Take, Route, Frequency, Duration) Notes Start Date End Date Status Paxil 10 MG Oral Active Melatonin 3 MG Oral Activ e Propranolol HCl 10 MG Oral Active Wellbutrin SR 150 MG Oral Active Zubsolv 5.7-1.4 mg Sublingual Active Suboxone 4-1 mg Sublingual Act terry Levothyroxine Sodium 25 MCG Oral Active PROzac 20 MG Oral Active Paxil 20 MG Oral Active traZODone HCl 100 MG Oral Active Paxil 40 MG Oral Active PROzac 10 MG Oral Active Suboxone 8-2 MG Sublingual Act terry QUEtiapine Fumarate 100 MG Oral Active QUEtiapine Fumarate 50 MG Oral Active QUEtiapine Fumarate ER 150 MG Oral Active SEROquel 50 MG Oral Activ e Social History Sex Assigned At : Social History Observation Description Sex Assigned At Male Plan Of Treatment No Information Insurance Providers Payer Name Payer Address Payer Phone Subscriber Number Group Number Insured Name Patient Relationship to Insured Coverage Start Date Coverage End Date Cigna ELVIN WRIGHT [id number] [place] [phone] [id number] YANICK GAMBOA Self - patient is the insured
[2025-05-17 15:03] LABS: Hematocrit 42.0 % (42.0-52.0); Hemoglobin 13.2 g/dL (14.0-18.0); Immature Granulocyte Percent A 0.3 % (0-0.5); Lymphocytes Absolute Auto 1.49 K/mm3 (0.9-3.2); Mean Corpuscular HGB Conc 31.4 g/dl (32-36); Mean Corpuscular Hemoglobin 29.0 pg (26-34); Mean Corpuscular Volume 92.3 fl (80-100); Nucleated Red Blood Cells Absolute Auto 0.000 K/mm3 (0.0-0.012); Nucleated Red Blood Cells Perc 0.0 % (0.0-0.2); Platelet Count Result 265 k/mm3 (150-375); Red Blood Count 4.55 M/mm3 (4.6-6.20); White Blood Count 6.4 K/mm3 (4.5-10.0)
[2025-05-17 15:06] LABS: Alanine Aminotransferase 37 U/L (6-50); Albumin Level 4.4 g/dL (3.5-5.1); Alkaline Phosphatase 60 U/L (38-126); Anion Gap 11 mmol/L (4-12); Aspartate Amino Transferase 51 U/L (17-59); Bilirubin,Total 0.4 mg/dL (0.2-1.3); Blood Urea Nitrogen 12 mg/dL (9-20); Calcium 9.2 mg/dL (8.4-10.2); Carbon Dioxide 24 mmol/L (22-30); Chloride 102 mmol/L (98-107); Cholesterol 319 mg/dL (0-200); Estimated Glomerular Filt Rate > 60; Glucose 98 mg/dL (65-110); HDL Direct 38 mg/dL; Potassium 4.5 mmol/L (3.4-5.0); Sodium 137 mmol/L (137-145); Total Protein 7.8 g/dL (6.3-8.2); Triglycerides 160 mg/dL (<150)
[2025-05-17 15:29] LABS: Hemoglobin A1C 6.1 % (<5.7)
[2025-05-17 15:38] LABS: Thyroid Stimulating Hormone Reflex 2.960 uIU/mL (0.465-4.68)
[2025-05-17 15:41] LABS: Prostate Specific Antigen 1.2 ng/mL (< OR = 4.0)
[2025-05-17 15:55] LABS: MALB Creatinine Ratio < 12.5 mg/g (0-30)
== END 2025-05-17 09:00 | disposition home or self-care (01) ==
LOC: ANHGOSHLAB 09:01
PROVIDERS: PCP Nurse Practitioner Family; Visit Provider Nurse Practitioner Family
DX: E78.5 Hyperlipidemia, unspecified (principal); E11.9 Type 2 diabetes mellitus without complications; E03.9 Hypothyroidism, unspecified; I10 Essential (primary) hypertension; E55.9 Vitamin D deficiency, unspecified; Z12.5 Encounter for screening for malignant neoplasm of prostate
CPT/HCPCS: 36415; 80053; 80061; 82043; 82306; 83036; 84153; 84443; 85025; G0103

== ENCOUNTER 2025-05-20 08:44 | Outpatient (CLI) | payer OTHER, SELFPAY ==
--- NOTE | ~2025-05-20 | US_ITS ---
US soft tissue upper back 05/20/2025 08:59 Indication: Localized swelling of the left upper back for 2 weeks. No pain. Procedure: Soft tissue ultrasound left upper back Comparison: No prior studies for comparison. Findings: There is a well-circumscribed oval hypoechoic mass involving the subdermal soft tissue with parallel orientation, internal echogenic foci, no internal vascularity or posterior features. This m ass measures 3.6 x 3.3 x 1.9 cm. Impression: 1: Subdermal oval mass, most consistent with benign soft tissue lesion. Differential diagnosis includ es epidermoid cyst, hypoechoic or fibrous lipoma, or metal fibroma an organized hematoma or scar tiss ue. Reviewed, dictated and finalized at location A. Impression: 1: Subdermal oval mass, most consistent with benign soft tissue lesion. Differe ntial diagnosis includes epidermoid cyst, hypoechoic or fibrous lipoma, or meta l fibroma an organized hematoma or scar tissue.
== END 2025-05-20 08:45 | disposition home or self-care (01) ==
LOC: MICIMG 08:45
PROVIDERS: PCP Nurse Practitioner Family; Visit Provider Nurse Practitioner Family
DX: R22.2 Localized swelling, mass and lump, trunk (principal)
CPT/HCPCS: 76604

== ENCOUNTER 2025-06-04 08:32 | Outpatient (CLI) | payer OTHER, SELFPAY ==
--- OUTSIDE RECORDS SUMMARY | 2025-06-04 08:36 | XMS_ITS | Patient Health Record ---
Author Organization [facility] Address [address] [place] [address] Care Team Providers Care Pest Control Service Sales Agent Name Role Phone Mayra MULLIGAN [facility] Primary Care Provider Temi Cool Unavailable [phone] Allergies No Known Allergies Reason For Referral [...] Date Coverage End Date Cigna ELVIN WRIGHT [id number] [place] [phone] [id number] YANICK GAMBOA Self - patient is the insured
--- OUTSIDE RECORDS SUMMARY | 2025-06-04 08:36 | XMS_ITS | Clinical Summary ---
Author Organization [facility] Address [address] [place] [address] Care Team Providers Care Laundry Attendant Name Role Phone Pat Lucas MD Primary Care Provider [phone] Source Comments [facility] [employer],non-owned Affiliates and Associated Physician Practices is amultiple site organization consisting of ambulatory clinics and hospital sitesin [place], [place], [place] and [place]. This disclosure is being madepursuant to the Care Everywhere program and may not contain all information available regarding this patient. Last updated 18.[facility] [employer] Allergies No known active allergies Medications * [...] on file Legal Sex Male 2:33 PM MEDICAL IMAGING SPECIALIST Gender Identity Not on file Sexual Orientation Not on file Last Filed Vital Signs Vital Sign Reading Time Taken Comments Blood Pressure - - Pulse - - Temperature - - Respiratory Rate - - Oxygen Saturation - - Inhaled Oxygen Concentration - - Weight 146.1 kg (322 lb) 01/02/2022 10:02 AM MEDICAL IMAGING SPECIALIST Height 172.7 cm (5' 8) 01/02/2022 10:02 AM MEDICAL IMAGING SPECIALIST Body Mass Index 48.96 01/02/2022 10:02 AM MEDICAL IMAGING SPECIALIST Plan of Treatment Health Maintenance Due Date [...] Name:VIJAY GARCIA Subscriber ID:Not on file Address: [address] [place], [place] [id number] Payer ID:Not on file Group ID:Not on file Type:Self Pay Address: [place], [place] [employer] Care Teams Laundry Attendant Relationship Specialty Start Date End Date Pat Lucas MD [address] [place] [id number] [facility] - General 01/02/22
--- OUTSIDE RECORDS SUMMARY | 2025-06-04 08:36 | XMS_ITS | Clinical Summary ---
Author Organization [facility] [address] Address [address] [place] [address] Care Team Providers Care Junior Data Analyst Name Role Phone Pat Lucas MD Primary [...] (10/05/2021): Added automatically from request for surgery [id number] Surgical History Surgery Date Site/Laterality Comments APPENDECTOMY [...] CONTROLLED WITH MEDICATION Type 2 diabetes mellitus CURRENT LY NOT ON ANY MEDS WAS ON METFORMIN [...] Comments Blood Pressure 164/103 10/17/2021 12:20 AM PRODUCT TRAINER Pulse 97 10/17/2021 12:20 AM PRODUCT TRAINER Temperature 37.1 C (98.8 F) 10/16/2021 6:20 PM PRODUCT TRAINER Respiratory Rate 20 10/17/2021 12:2 0 AM PRODUCT TRAINER Oxygen Saturation 95% 10/17/2021 12: 20 AM PRODUCT TRAINER Inhaled Oxygen Concentration - - Weight 141.3 kg (311 lb 8.2 oz) 10/16/2021 6:20 PM PRODUCT TRAINER Height 172.7 cm (5' 8) 10/16/2021 6:20 PM PRODUCT TRAINER Body Mass Index 47.36 10/16/2021 6:20 PM PRODUCT TRAINER Plan of Treatment Not on file Medical Devices Implanted Type Area Guidance Services Coordinator Device Identifier Shelf Expiration Date Model / Serial / Lot Arthrex Inc [id number] 3 Hole Anatomic Graft Window Radius Right Wrist Volar Standard - [id number] Implanted:Qty: 1 on 10/15/2021 by Jeferson Gonzalez MD at [facility] Right: Wrist [employer] AR-8916VSR- 03 / / [employer] Ar-8935-16 Low Profile Screws 3.5mm 16mm Self Tap Solid Hexalobe Midfoot - [id number] Implanted:Qty: 2 on 10/15/2021 by Jeferson Gonzalez MD at [facility] Right: Wrist [employer] AR-8935-16 / / [employer] [id number] Screw Kreulock Compression Titanium 2.4x22mm - [id number] Implanted:Qty: 1 on 10/15/2021 by Jeferson Gonzalez MD at [facility] Right: Wrist [employer] AR-8724VCL- 22 / / [employer] [id number] Screw Kreulock Compression Titanium 2.4x24mm - [id number] Implanted:Qty: 2 on 10/15/2021 by Jeferson Gonzalez MD at [facility] Right: Wrist [employer] AR-8724VCL- 24 / / [employer] [id number] Screw Kreulock Compression Titanium 3.5x14mm - [id number] Implanted:Qty: 1 on 10/15/2021 by Jeferson Gonzalez MD at [facility] Right: Wrist [employer] AR-8935CL-1 4 / / Insurance COMMERCIAL GENERIC [employer] OPEN ACCESS Care Teams Junior Data Analyst Relationship Specialty Start Date End Date Pat Lucas MD [address] [place] [address] DR O[address]Y [address] [place] [address] PCP - General Family Medicine 10/08/21
--- OUTSIDE RECORDS SUMMARY | 2025-06-04 08:36 | XMS_ITS | Patient Health Record ---
Author Organization [facility] Address [address] [place] [address] Care Team Providers Care Alteration Worker Name Role Phone Imelda Marquez Primary Care [...] Risk Notes Problem Moderate recurrent major depression (12967614) Moderate episode of recurrent major depressive disorder (F33.1) Active confirmed Problem Obesity (660616315) Obesity (BMI 30-39.9) (E66.9) Active confirmed Problem Insomnia (546053924) Insomnia, unspecified type (G47.00) Active confirmed Problem Gastroesophageal reflux disease (646204949) GERD without esophagitis (K21.9) Active confirmed Problem Morbid obesity (903778056) Obesity, morbid, BMI 40.0-49.9 (E66.01) Active confirmed Plan Of Treatment Future Test Test Name Order Date Drug Analysis, Unknown, Qual 01/07/2018 Insurance Providers Payer Name Payer Address Payer Phone Subscriber Number Group Number Insured Name Patient Relationship to Insured Coverage Start Date Coverage End Date [facility] [address] [address] [place] [address] [id number] Vijay Garcia Self - patient is the insured 5 Medical (General) History Surgical History Surgery Date(Month/Year) tonsillectomy 2009 apendectomy 2016
--- OUTSIDE RECORDS SUMMARY | 2025-06-04 08:36 | XMS_ITS | Clinical Summary ---
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 Not on file Not on file Last Filed Vital Signs Vital Sign Reading Time Taken Comments Blood Pressure 140/102 07/22/2022 12:38 PM CDT Pulse 98 07/22/2022 12:38 PM CDT Temperature 36.8 C (98.2 F) 10/08/2017 3:35 PM PREFORMING MACHINE OPERATOR Respiratory Rate 16 10/08/2017 3:35 PM PREFORMING MACHINE OPERATOR Oxygen Saturation 97% 10/08/2017 3:35 PM PREFORMING MACHINE OPERATOR Inhaled Oxygen Concentration - - Weight 148.3 [...] Health Maintenance Insurance CIGNA CIGNA Care Teams Lithographic Press Operator Relationship Specialty Start Date End Date Pat Lucas MD [address] [place] [address] [place] [address] PCP - General FAMILY PRACTICE 07/05/22
--- OUTSIDE RECORDS SUMMARY | 2025-06-04 08:36 | XMS_ITS | Encounter Summary ---
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
--- OUTSIDE RECORDS SUMMARY | 2025-06-04 08:36 | XMS_ITS | Referral Summary ---
Author Organization [facility] [address] Address [address] [place] [address] Care Team Providers Care Foundry Worker Name Role Phone Pat Lucas MD Primary [...] (10/05/2021): Added automatically from request for surgery [id number] Social History Tobacco Use Types Packs/Day Years [...] Comments Blood Pressure 164/103 10/17/2021 12:20 AM TELEVISION NEWS PRODUCER Pulse 97 10/17/2021 12:20 AM TELEVISION NEWS PRODUCER Temperature 37.1 C (98.8 F) 10/16/2021 6:20 PM TELEVISION NEWS PRODUCER Respiratory Rate 20 10/17/2021 12:2 0 AM TELEVISION NEWS PRODUCER Oxygen Saturation 95% 10/17/2021 12: 20 AM TELEVISION NEWS PRODUCER Inhaled Oxygen Concentration - - Weight 141.3 kg (311 lb 8.2 oz) 10/16/2021 6:20 PM TELEVISION NEWS PRODUCER Height 172.7 cm (5' 8) 10/16/2021 6:20 PM TELEVISION NEWS PRODUCER Body Mass Index 47.36 10/16/2021 6:20 PM TELEVISION NEWS PRODUCER Plan of Treatment Not on file Medical Devices Implanted Type Area Spa Technician Device Identifier Shelf Expiration Date Model / Serial / Lot [employer]rex [employer] [id number] 3 Hole Anatomic Graft Window Radius Right Wrist Volar Standard - [id number] Implanted:Qty: 1 on 10/15/2021 by Jeferson Gonzalez MD at [facility] Right: Wrist [employer] AR-8916VSR- 03 / / [employer] Ar-8935-16 Low Profile Screws 3.5mm 16mm Self Tap Solid Hexalobe Midfoot - [id number] Implanted:Qty: 2 on 10/15/2021 by Jeferson Gonzalez MD at [facility] Right: Wrist [employer] AR-8935-16 / / [employer] [id number] Screw Kreulock Compression Titanium 2.4x22mm - [id number] Implanted:Qty: 1 on 10/15/2021 by Jeferson Gonzalez MD at [facility] Right: Wrist [employer] AR-8724VCL- 22 / / [employer] [id number] Screw Kreulock Compression Titanium 2.4x24mm - [id number] Implanted:Qty: 2 on 10/15/2021 by Jeferson Gonzalez MD at [facility] Right: Wrist [employer] AR-8724VCL- 24 / / [employer] [id number] Screw Kreulock Compression Titanium 3.5x14mm - [id number] Implanted:Qty: 1 on 10/15/2021 by Jefreson Gonzalez MD at [facility] Right: Wrist [employer] AR-8935CL-1 4 / / Insurance COMMERCIAL [facility]IC [facility] OPEN ACCESS Care Teams Foundry Worker Relationship Specialty Start Date End Date Pat Lucas MD [address] [place] [address] DR O[address]ILLY [address] [place] [address] PCP - General Family Medicine 10/08/21
--- OUTSIDE RECORDS SUMMARY | 2025-06-04 08:36 | XMS_ITS | Encounter Summary ---
Author Organization [facility] Address [address] [place] [address] Care Team Providers Care Blueprint Tracer Name Role Phone Howard Mendez MD Primary Care Provider Pat Lucas MD Primary Care Provider [phone] Encounter Details Date Type Department Care Team ([facility] st Contact Info) Description 09/26/2020 Abstract [facility] at [address] [address] Gordo Ortega [place] Social History Tobacco Use [...] on filedocumented in this encounter Care Teams Blueprint Tracer Relationship Specialty Start Date End Date Howard Mendez MD [facility] [address] [address] PCP - General INTERNAL MEDICINE 08/02/20 07/04/22 Pat Lucas MD [address] [place] [phone] PCP - General FAMILY PRACTICE 07/05/22 documented as of this encounter
--- NOTE | 2025-06-04 08:49 | ECG_ITS ---
Test Date: 2025-06-04 09:01:26 Measurements Intervals [place] Rate: 70 P: 41 ME: 171 QRS: -35 QRSD: 104 T: 31 QT: 436 QTc: 471 Interpretive Statements SINUS RHYTHM LEFT AXIS DEVIATION PATTERN CONSISTENT WITH PULMONARY DISEASE BASELINE ARTIFACT- I, III BORDERLINE ECG No previous ECG available for comparison Electronically Signed On 06-04-2025 14:41:56 CDT by Jarvis Moore D.O.
== END 2025-06-04 08:33 | disposition home or self-care (01) ==
LOC: ANHCARD 08:34
PROVIDERS: PCP Nurse Practitioner Family; Visit Provider Anesthesiology
DX: E78.5 Hyperlipidemia, unspecified (principal); Z01.818 Encounter for other preprocedural examination
CPT/HCPCS: 93005

== ENCOUNTER 2025-06-06 01:15 | Day surgery (SDC) | payer OTHER, SELFPAY ==
[2025-05-30 15:09] VITALS: BMI 37.4
--- NOTE | 2025-05-30 15:43 | PC.NURSE ---
Report to the Outpatient Waiting Room, entrance under the green pavilion located off [facility], at time _11:30AM on date _Fri06/06/25 . Planned Procedure Time: _1:30PM .? Time changes happen often and if your time is changed the preop area will call you the afternoon before. - You and your visitor will be asked to self-screen and do not enter if you have any COVID symptoms. Please call surgeon if you need to reschedule. - A mask is optional within the hospital at this time. Patients may have clear liquids (water, carbonated beverages, clear teas, apple juice) until 3 hours prior to surgery with a maximum of 20 ounces. - No food from midnight until time of surgery and no smoking, or chewing tobacco (or any form of nicotine). No chewing gum, candy or mints. Take only the following medications with a SIP of water on the morning of surgery: __FLUOXETINE DO NOT STOP ANY OF YOUR OTHER PRESCRIPTION MEDICATIONS PRIOR TO SURGERY EXCEPT THE FOLLOWING Hold all vitamins and supplements for 3 days per anesthesiologist. Medications to discontinue per physician N/A Date to take last dose___N/A Please no make-up, nail croatian, hairspray, perfume, deodorant, or body powder the day of surgery.? No jewelry (including any body piercings) or valuables the day of surgery, leave them at home.? Please take a shower or bath the night before, or the morning of, surgery with an antibacterial soap.? Wear comfortable, loose fitting clothing.? - Jewelry must be removed prior to entering the operating room.? Rings and piercings that are not removed may be cut off. - The hospital will not accept responsibility for valuables.? - Please leave all valuables, including medications, at home the day of surgery. If you are going home after surgery, a licensed [employer] company flatbed driver must drive you home.? - NO public transportation without another adult if you receive anesthesia. - We recommend that an adult stay with you for 24 hours following discharge. - We also recommend that you do not drive, make important decision, drink alcoholic beverages, or take any drugs that were not prescribed by your health care provider for at least 24 hours after your discharge time. Follow any additional instructions given to you from your surgeon. Telephone instructions given to _JOE and asked if any additional questions and then verbalized understanding. Patient advised to call surgeon office or pre surgery nurse liaison [phone] if any additional questions.
[2025-06-06] VITALS (8 sets, daily range): BP systolic 118–158; BP diastolic 65–99; PULSE 63–115; RESP 12–18; TEMP 36.2–36.7; O2SAT 99–100
--- OUTSIDE RECORDS SUMMARY | 2025-06-06 01:18 | XMS_ITS | Patient Health Record ---
Author Organization [facility] Address [address] [place] [address] Care Team Providers Care Public Health Doctor Name Role Phone Imelda Marquez Primary Care [...] Risk Notes Problem Moderate recurrent major depression (19697273) Moderate episode of recurrent major depressive disorder (F33.1) Active confirmed Problem Obesity (329481618) Obesity (BMI 30-39.9) (E66.9) Active confirmed Problem Insomnia (901313848) Insomnia, unspecified type (G47.00) Active confirmed Problem Gastroesophageal reflux disease (416378328) GERD without esophagitis (K21.9) Active confirmed Problem Morbid obesity (280670703) Obesity, morbid, BMI 40.0-49.9 (E66.01) Active confirmed Plan Of Treatment Future Test Test Name Order Date Drug Analysis, Unknown, Qual 01/07/2018 Insurance Providers Payer Name Payer Address Payer Phone Subscriber Number Group Number Insured Name Patient Relationship to Insured Coverage Start Date Coverage End Date [facility] [address] [address] [place] [address] [id number] Vijay Garcia Self - patient is the insured 5 Medical (General) History Surgical History Surgery Date(Month/Year) tonsillectomy 2009 apendectomy 2016
--- OUTSIDE RECORDS SUMMARY | 2025-06-06 01:18 | XMS_ITS | Encounter Summary ---
Author Organization [facility] Address [address] [place] [address] Care Team Providers Care Commercial Real Estate Appraiser Name Role Phone Howard Mendez MD Primary Care Provider Pat Lucas MD Primary Care Provider [phone] Encounter Details Date Type Department Care Team (Late st Contact Info) Description 09/26/2020 Abstract [facility] at [address] [address] Gordo Ortega [place] Social History Tobacco Use [...] on filedocumented in this encounter Care Teams Commercial Real Estate Appraiser Relationship Specialty Start Date End Date Howard Mendez MD [facility] [address] [address] PCP - General INTERNAL MEDICINE 08/02/20 07/04/22 Pat Lucas MD [address] [place] [phone] PCP - General FAMILY PRACTICE 07/05/22 documented as of this encounter
--- OUTSIDE RECORDS SUMMARY | 2025-06-06 01:18 | XMS_ITS | Encounter Summary ---
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
--- OUTSIDE RECORDS SUMMARY | 2025-06-06 01:18 | XMS_ITS | Patient Health Record ---
Author Organization [facility] [email or web address] [facility] Address [address] [place] [address] Care Team Providers Care Plate Take Out Worker Name Role Phone Mayra MULLIGAN [facility] Primary Care Provider Temi Cool Unavailable [phone] Allergies No Known Allergies Reason For Referral [...] Date Coverage End Date [employer] [place] [id number] [place] [phone] [id number] YANICK GAMBOA Self - patient is the insured
--- OUTSIDE RECORDS SUMMARY | 2025-06-06 01:18 | XMS_ITS | Referral Summary ---
Author Organization [facility] [address] Address [address] [place] [address] Care Team Providers Care Supervisor Maintenance And Custodians Name Role Phone Pat Lucas MD Primary [...] (10/05/2021): Added automatically from request for surgery [id number] Social History Tobacco Use Types Packs/Day Years [...] Comments Blood Pressure 164/103 10/17/2021 12:20 AM P 3 ARMAMENT/ORDNANCE IMA TECHNICIAN Pulse 97 10/17/2021 12:20 AM P 3 ARMAMENT/ORDNANCE IMA TECHNICIAN Temperature 37.1 C (98.8 F) 10/16/2021 6:20 PM P 3 ARMAMENT/ORDNANCE IMA TECHNICIAN Respiratory Rate 20 10/17/2021 12:2 0 AM P 3 ARMAMENT/ORDNANCE IMA TECHNICIAN Oxygen Saturation 95% 10/17/2021 12: 20 AM P 3 ARMAMENT/ORDNANCE IMA TECHNICIAN Inhaled Oxygen Concentration - - Weight 141.3 kg (311 lb 8.2 oz) 10/16/2021 6:20 PM P 3 ARMAMENT/ORDNANCE IMA TECHNICIAN Height 172.7 cm (5' 8) 10/16/2021 6:20 PM P 3 ARMAMENT/ORDNANCE IMA TECHNICIAN Body Mass Index 47.36 10/16/2021 6:20 PM P 3 ARMAMENT/ORDNANCE IMA TECHNICIAN Plan of Treatment Not on file Medical Devices Implanted Type Area Can Line Examiner Device Identifier Shelf Expiration Date Model / Serial / Lot [employer] [id number] 3 Hole Anatomic Graft Window Radius Right Wrist Volar Standard - [id number] Implanted:Qty: 1 on 10/15/2021 by Jeferson Gonzalez MD at [facility] Right: Wrist [employer] AR-8916VSR- 03 / / [employer] Ar-8935-16 Low Profile Screws 3.5mm 16mm Self Tap Solid Hexalobe Midfoot - [id number] Implanted:Qty: 2 on 10/15/2021 by Jeferson Gonzalez MD at [facility] Right: Wrist [employer] AR-8935-16 / / [employer] [id number] Screw Kreulock Compression Titanium 2.4x22mm - [id number] Implanted:Qty: 1 on 10/15/2021 by Jeferson Gonzalez MD at [facility] Right: Wrist [employer] AR-8724VCL- 22 / / [employer] [id number] Screw Kreulock Compression Titanium 2.4x24mm - [id number] Implanted:Qty: 2 on 10/15/2021 by Jeferson Gonzalez MD at [facility] Right: Wrist [employer] AR-8724VCL- 24 / / [employer] [id number] Screw Kreulock Compression Titanium 3.5x14mm - [id number] Implanted:Qty: 1 on 10/15/2021 by Jeferson Gonzalez MD at [facility] Right: Wrist [employer] AR-8935CL-1 4 / / Insurance COMMERCIAL GENERIC [facility] OPEN ACCESS Care Teams Supervisor Maintenance And Custodians Relationship Specialty Start Date End Date Pat Lucas MD [address] [place] [address] DR O[address] [place] [address] PCP - General Family Medicine 10/08/21
--- OUTSIDE RECORDS SUMMARY | 2025-06-06 01:18 | XMS_ITS | Clinical Summary ---
Author Organization [facility] [address] Address [address] [place] [address] Care Team Providers Care Wellness Educator Name Role Phone Pat Lucas MD Primary [...] (10/05/2021): Added automatically from request for surgery [id number] Surgical History Surgery Date Site/Laterality Comments APPENDECTOMY [...] Comments Blood Pressure 164/103 10/17/2021 12:20 AM SPECIAL PROGRAMS DIRECTOR Pulse 97 10/17/2021 12:20 AM SPECIAL PROGRAMS DIRECTOR Temperature 37.1 C (98.8 F) 10/16/2021 6:20 PM SPECIAL PROGRAMS DIRECTOR Respiratory Rate 20 10/17/2021 12:2 0 AM SPECIAL PROGRAMS DIRECTOR Oxygen Saturation 95% 10/17/2021 12: 20 AM SPECIAL PROGRAMS DIRECTOR Inhaled Oxygen Concentration - - Weight 141.3 kg (311 lb 8.2 oz) 10/16/2021 6:20 PM SPECIAL PROGRAMS DIRECTOR Height 172.7 cm (5' 8) 10/16/2021 6:20 PM SPECIAL PROGRAMS DIRECTOR Body Mass Index 47.36 10/16/2021 6:20 PM SPECIAL PROGRAMS DIRECTOR Plan of Treatment Not on file Medical Devices Implanted Type Area Spring Internship Device Identifier Shelf Expiration Date Model / Serial / Lot [employer] [id number] 3 Hole Anatomic Graft Window Radius Right Wrist Volar Standard - [id number] Implanted:Qty: 1 on 10/15/2021 by Jeferson Gonzalez MD at [facility] Right: Wrist [employer] AR-8916VSR- 03 / / [employer] Ar-8935-16 Low Profile Screws 3.5mm 16mm Self Tap Solid Hexalobe Midfoot - [id number] Implanted:Qty: 2 on 10/15/2021 by Jeferson Gonzalez MD at [facility] Right: Wrist [employer] AR-8935-16 / / [employer] [id number] Screw Kreulock Compression Titanium 2.4x22mm - [id number] Implanted:Qty: 1 on 10/15/2021 by Jeferson Gonzalez MD at [facility] Right: Wrist [employer] AR-8724VCL- 22 / / [employer] [id number] Screw Kreulock Compression Titanium 2.4x24mm - [id number] Implanted:Qty: 2 on 10/15/2021 by Jeferson Gonzalez MD at [facility] Right: Wrist [employer] AR-8724VCL- 24 / / [employer] [id number] Screw Kreulock Compression Titanium 3.5x14mm - [id number] Implanted:Qty: 1 on 10/15/2021 by Jeferson Gonzalez MD at [facility] Right: Wrist [employer] AR-8935CL-1 4 / / Insurance COMMERCIAL GENERIC [employer] OPEN ACCESS Care Teams Wellness Educator Relationship Specialty Start Date End Date Pat Lucas MD [address] [place] [address] DR O[address]Y [address] [place] [address] PCP - General Family Medicine 10/08/21
--- OUTSIDE RECORDS SUMMARY | 2025-06-06 01:18 | XMS_ITS | Clinical Summary ---
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 on file Not on file Last Filed Vital Signs Vital Sign Reading Time Taken Comments Blood Pressure 140/102 07/22/2022 12:38 PM CDT Pulse 98 07/22/2022 12:38 PM CDT Temperature 36.8 C (98.2 F) 10/08/2017 3:35 PM TIME SIGNAL WIRER Respiratory Rate 16 10/08/2017 3:35 PM TIME SIGNAL WIRER Oxygen Saturation 97% 10/08/2017 3:35 PM TIME SIGNAL WIRER Inhaled Oxygen Concentration - - Weight 148.3 [...] Health Maintenance Insurance CIGNA CIGNA Care Teams Health Club Attendant Relationship Specialty Start Date End Date Pat Lucas MD [address] [place] [address] [place] [address] PCP - General FAMILY PRACTICE 07/05/22
--- OUTSIDE RECORDS SUMMARY | 2025-06-06 01:18 | XMS_ITS | Clinical Summary ---
Author Organization [facility] Address [address] [place] [address] Care Team Providers Care Restaurant Crew Person Name Role Phone Pat Lucas MD Primary Care Provider [phone] Source Comments [facility] [employer],non-owned Affiliates and Associated Physician Practices is amultiple site organization consisting of ambulatory clinics and hospital sitesin [place], [place], [place] and [place]. This disclosure is being madepursuant to the Care Everywhere program and may not contain all information available regarding this patient. Last updated 18.[facility] [employer] Allergies No known active allergies Medications * [...] on file Legal Sex Male 2:33 PM GLOBAL COMPENSATION DIRECTOR Gender Identity Not on file Sexual Orientation Not on file Last Filed Vital Signs Vital Sign Reading Time Taken Comments Blood Pressure - - Pulse - - Temperature - - Respiratory Rate - - Oxygen Saturation - - Inhaled Oxygen Concentration - - Weight 146.1 kg (322 lb) 01/02/2022 10:02 AM GLOBAL COMPENSATION DIRECTOR Height 172.7 cm (5' 8) 01/02/2022 10:02 AM GLOBAL COMPENSATION DIRECTOR Body Mass Index 48.96 01/02/2022 10:02 AM GLOBAL COMPENSATION DIRECTOR Plan of Treatment Health Maintenance Due Date [...] Name:VIJAY GARCIA Subscriber ID:Not on file Address: [address] [place], [place] [id number] Payer ID:Not on file Group ID:Not on file Type:Self Pay Address: [place], [place] CIGNA Care Teams Restaurant Crew Person Relationship Specialty Start Date End Date Pat Lucas MD [address] [place] [address] [facility] - General 01/02/22
--- NOTE | 2025-06-06 12:29 | WPDANESEPPF ---
Anes - Initial Pre Proc Eval Procedure: Operation Date: 06/06/25 13:15 Proposed Procedures p Excision Mid Upper Back Squamous Mass - Sahil Ellis MD Date/Time: 06/06/25 12:29 Surgeon: Sahil Ellis MD Pre Op Diagnosis: Squamous mass mid back 8 by 7 cm Patient Data Age: 45 Gender: M Height: 1.73 m Weight: 111.3 kg Last Vital Signs Temp 36.2 C L 06/06/25 11:10 Pulse 63 06/06/25 11:10 Resp 16 06/06/25 11:10 BP 145/87 H 06/06/25 11:10 Pulse Ox 99 06/06/25 11:10 O2 Del Method Room Air 06/06/25 11:10 Allergies Allergy/AdvReac Type Severity Reaction Status Date / Time No Known Allergies Allergy Verified 05/30/25 15:37 Home Medications ?Medication ?Instructions ?Recorded ?Confirmed ?Type fluoxetine 40 mg capsule 40 mg PO DAILY #90 caps 02/22/25 05/30/25 Rx omeprazole 40 mg capsule,delayed 40 mg PO DAILY #90 caps 02/22/25 05/30/25 Rx release atorvastatin 20 mg tablet (Lipitor) 20 mg PO QHS #90 tabs 05/17/25 05/30/25 Rx cholecalciferol (vitamin D3) 50 50 mcg PO DAILY #90 caps 05/17/25 05/30/25 Rx mcg (2,000 unit) capsule melatonin 10 mg capsule 10 mg PO QHS PRN sleep 05/17/25 05/30/25 History Patient hx anesthesia problems: none Family hx anesthesia problems: none Results Review: All pre-operative results and documents have been reviewed as part of the pre-operative evaluation. [facility]LY [facility] Past Medical History Medical History Colon cancer screening GERD (gastroesophageal reflux disease) Depression Type 2 diabetes mellitus Sleep apnea Diabetes Hypertension Fracture of distal end of right radius and ulna Surgical History Surgical History Hx of blepharoplasty right upper eyelid History of tonsillectomy History of appendectomy Family History Family History Mother Family history of diabetes mellitus in first degree relative Family history of malignant neoplasm of breast in first degree relative Father No problems noted. Sibling No problems noted. Social History Social History Years smoked: 15 Smoking status: Former smoker Tobacco type: cigarettes and e-cigarettes/vaping Smoking end date: 11/03/22 Alcohol intake: current Alcohol use details: once a month Substance use: current Substance use type: marijuana Other substance usage details: smokes marijuana daily Last use: 05/30/25 Living arrangements: with family Spiritual care concerns: No Anes - Eval Final PreProcedure Day of Procedure 06/06/25 12:29 Patient weight: obese Heart: regular rate and rhythm Lungs: decreased breath sounds Airway: Mallampati scale class II Neurological: alert and oriented Last oral intake: >/= 8 hours ASA classification: III Emergent: no Anesthetic plan: proceed Anesthesia type and monitoring: general LMA and standard monitoring Results Review: All pre-operative results and documents have been reviewed as part of the pre-operative evaluation. Informed Consent: The patient's anesthetic plan and its attendant risks and benefits were discussed with the patient/family/POA. Questions were solicited and answers provided to the satisfaction of the patient/family/POA.
--- NOTE | 2025-06-06 13:03 | WPDHPUPDATE1 ---
History and Physical Update Update Date/Time: 06/06/25 13:03 History and Physical has been reviewed, including an updated exam of the patient. There are NO changes in the patient's condition. Risks, benefits, and alternatives have been discussed and questions answered. Patient agrees to proceed with procedure.
[2025-06-06] MEDS: LIDO 1%/EPINEPHRINE 1:100,000 50 ML VIAL 30 ML INFILTRATE (13:24)
[2025-06-06] MEDS: ceFAZolin 2 GM in SODIUM CHLORIDE 0.9% IV 50 ML 100 ML IVPB (13:24)
--- NOTE | 2025-06-06 14:22 | S_PTH ---
PATIENT: Vijay Garcia LOC: [facility] U#:[id number] AGE/SX: 45/M ROOM: RE06/06/[address]: Sahil Ellis MD : 1980 BED: DIS: 06/06/2025 SPEC #: [id number] RECD: 06/07/25 08:17 STATUS: DOLORES REQ #: [id number] PRITI: 06/06/25 14:[address]: Sahil Ellis DEPT: [facility] Surgical RECD BY: Nisreen Cespedes ENTERED: 06/07/25 08:17 SP TYPE: Surgical OTHR DR: Lida Randle APRN Tissues: A - Mass Procedures: Hematoxylin and Eosin Stain Gross and Microscopic Level 3
[2025-06-06] MEDS: KETOROLAC 30 MG/ML VIAL (*BKC) IV PUSH (14:30)
[2025-06-06] MEDS: NEOMYCIN/POLYMYXIN/BACITRACIN OINTMENT 15 GM TUBE 1 APPLIC TOPICAL (14:36)
[2025-06-06] MEDS: LACTATED RINGERS 1,000 ML 30 ML IV CONT ×2 (14:50)
--- NOTE | 2025-06-06 15:02 | P.OP_ITS ---
Procedure Note - Detailed Date of Procedure 06/06/25 Pre-op Diagnosis Subcutaneous mass mid back. Post-op Diagnosis Same Procedure Performed Excision of upper back lipoma. Surgeon Sahil Ellis MD Tactical Intelligence Officer YOUNG Nugent Anesthesia General Indications Patient is a 45-year-old white male presented with a slowly enlarging mass in the subcutaneous tissues of the mid upper back over many years. It started causing symptoms of soreness. Clinically appears consistent with a large grow ing lipoma. He presents now for elective excision. Findings Patient had a large lipoma which was multilobulated in the subcutaneous tissues of the mid upper back. It measured 9.8s1b5gd. 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 Was sent to pathology for examination. Description of Procedure After informed consent was obtained patient brought to the operating room where he was placed under general endotracheal anesthesia and then turned prone onto the operating table. Pressure points were well padded. Time-out was then performed correctly identifying the patient as well as procedure to be performed. He was given perioperative IV antibiotics. I then made a transverse incision over the subcutaneous mass in the mid upper back region. Dissection carried deeply down to the dermis skin with a scalpel and then electrocautery was used to dissect down to subcutaneous tissues. The capsule lipoma was rather fibrous and there was multiple lobulations to the lipoma. It was extended deeply down onto the fascia of the underlying back muscle. It did not extend subfascial or intramuscularly. I then proceeded to completely excise out the multilobulated lipomatous tissue with electrocautery. Once it was completely removed it was measured and it was 9.0a4a0ar. It was sent to pathology for examination. I then irrigated out the incision with sterile saline solution hemostasis was good. The soft tissue defect was so large I felt I would have to leave a ZAYDA drain in place. I chose a 10 Maori round fluted ZAYDA drain drain and brought it up the inferior lateral from the incision through the skin. Secured at skin with a 3-0 nylon suture. Incision was then closed with a single layer of interrupted 2-0 nylon sutures placed in vertical mattress fashion. Incision was then cleaned and then antibiotic ointment was applied. The drain was placed to after grenade bulb suction. A drain dressing was also placed around the drain. The patient tolerated the procedure well no complications. All sponges, needles, and instrument counts were correct at the end procedure. EBL was _25__cc. The patient was awakened and taken to recovery in stable and satisfactory condition. Implants None Estimated Blood Loss 25 Drains Yes (10 Maori round ZAYDA drain back incision.) Packing No Pathology Yes (Lipoma to pathology) Complications No immediate complications Condition Stable Disposition PACU [facility] Billing Surgery - Charge Forward: Surgery Billing
== END 2025-06-06 16:35 | disposition home or self-care (01) ==
PROVIDERS: PCP Nurse Practitioner Family; Visit Provider Surgery
PROC: (CPT 21931; principal; 2025-06-06 13:15)
DX: D17.1 Benign lipomatous neoplasm of skin and subcutaneous tissue of trunk (principal); I10 Essential (primary) hypertension; E11.9 Type 2 diabetes mellitus without complications; K21.9 Gastro-esophageal reflux disease without esophagitis; F32.A Depression, unspecified; G47.30 Sleep apnea, unspecified; F12.90 Cannabis use, unspecified, uncomplicated; E66.9 Obesity, unspecified; Z68.37 Body mass index [BMI] 37.0-37.9, adult; Z98.890 Other specified postprocedural states; Z87.891 Personal history of nicotine dependence; Z80.3 Family history of malignant neoplasm of breast
CPT/HCPCS: 21931; 88304; J0690; A9270; J1100; J1596; J1885; J2003; J2004; J2250; J2371; J2405; J2704; J3010; J7030; J7120

== ENCOUNTER 2025-07-10 05:41 | Emergency (ER) | payer OTHER, SELFPAY ==
--- NOTE | ~2025-07-10 | CT_ITS ---
EXAMINATION: CT brain wo con COMPARISON: None HISTORY: h/a TECHNIQUE: Axial images were obtained through the brain without IV contrast. CT scan performed using dose optimization techniques including the following automated exposure control; adjustment of mA and/or kV; use of iterative reconstruction technique. Automatic exposure control was used to reduce radiation dose. Permanent radiation dose record is archived to PACS. FINDINGS: No acute infarct or parenchymal hemorrhage. No abnormal mass or mass effect. No midline shift. No extra-axial fluid collections. No hydrocephalus. . Mastoid air cells unremarkable. Sinuses and orbits unremarkable. No acute fracture. No significant facial or scalp soft tissue swelling evident. No radiopaque foreign body is seen. Impression: 1.No acute intracranial abnormality. Reviewed, dictated and finalized at location A. Impression: 1.No acute intracranial abnormality.
--- OUTSIDE RECORDS SUMMARY | 2025-07-10 05:42 | XMS_ITS | Clinical Summary ---
Author Organization [facility] [place] [address] Address [address] [place] [address] Care Team Providers Care Director Metabolism Name Role Phone Pat Lucas MD Primary [...] (10/05/2021): Added automatically from request for surgery [id number] Surgical History Surgery Date Site/Laterality Comments APPENDECTOMY [...] Comments Blood Pressure 164/103 10/17/2021 12:20 AM MISSILE CONTROL PILOT Pulse 97 10/17/2021 12:20 AM MISSILE CONTROL PILOT Temperature 37.1 C (98.8 F) 10/16/2021 6:20 PM MISSILE CONTROL PILOT Respiratory Rate 20 10/17/2021 12:2 0 AM MISSILE CONTROL PILOT Oxygen Saturation 95% 10/17/2021 12: 20 AM MISSILE CONTROL PILOT Inhaled Oxygen Concentration - - Weight 141.3 kg (311 lb 8.2 oz) 10/16/2021 6:20 PM MISSILE CONTROL PILOT Height 172.7 cm (5' 8) 10/16/2021 6:20 PM MISSILE CONTROL PILOT Body Mass Index 47.36 10/16/2021 6:20 PM MISSILE CONTROL PILOT Plan of Treatment Not on file Medical Devices Implanted Type Area Paleology Professor Device Identifier Shelf Expiration Date Model / Serial / Lot [employer] [id number] 3 Hole Anatomic Graft Window Radius Right Wrist Volar Standard - [id number] Implanted:Qty: 1 on 10/15/2021 by Jeferson Gonzalez MD at [facility] Right: Wrist [employer] [id number]- 03 / / [employer] [id number] Low Profile Screws 3.5mm 16mm Self Tap Solid Hexalobe Midfoot - [id number] Implanted:Qty: 2 on 10/15/2021 by Jeferson Gonzalez MD at [facility] Right: Wrist [employer] AR-8935-16 / / [employer] [id number] Screw Kreulock Compression Titanium 2.4x22mm - [id number] Implanted:Qty: 1 on 10/15/2021 by Jeferson Gonzalez MD at [facility] Right: Wrist [employer] AR-8724VCL- 22 / / [employer] [id number] Screw Kreulock Compression Titanium 2.4x24mm - [id number] Implanted:Qty: 2 on 10/15/2021 by Jeferson Gonzalez MD at [facility] Right: Wrist [employer] AR-8724VCL- 24 / / [employer] [id number] Screw Kreulock Compression Titanium 3.5x14mm - [id number] Implanted:Qty: 1 on 10/15/2021 by Jeferson Gonzalez MD at [facility] Right: Wrist [employer] [id number]-8935CL-1 4 / / Insurance COMMERCIAL GENERIC [employer] OPEN ACCESS Care Teams Director Metabolism Relationship Specialty Start Date End Date Pat Lucas MD [address] [place] [address] DR OREILLY [address] [place] [id number] PCP - General Family Medicine 10/08/21
--- OUTSIDE RECORDS SUMMARY | 2025-07-10 05:43 | XMS_ITS | Patient Health Record ---
Author Organization [facility] Address [address] [place] [address] Care Team Providers Care Foot Orthopedist Name Role Phone Imelda Marquez Primary Care [...] Risk Notes Problem Moderate recurrent major depression (74874452) Moderate episode of recurrent major depressive disorder (F33.1) Active confirmed Problem Obesity (809856987) Obesity (BMI 30-39.9) (E66.9) Active confirmed Problem Insomnia (675919481) Insomnia, unspecified type (G47.00) Active confirmed Problem Gastroesophageal reflux disease (968223902) GERD without esophagitis (K21.9) Active confirmed Problem Morbid obesity (030293197) Obesity, morbid, BMI 40.0-49.9 (E66.01) Active confirmed Plan Of Treatment Future Test Test Name Order Date Drug Analysis, Unknown, Qual 01/07/2018 Insurance Providers Payer Name Payer Address Payer Phone Subscriber Number Group Number Insured Name Patient Relationship to Insured Coverage Start Date Coverage End Date [facility] [address] [address] [place] [address] [id number] Vijay Garcia Self - patient is the insured 5 Medical (General) History Surgical History Surgery Date(Month/Year) tonsillectomy 2009 apendectomy 2016
--- OUTSIDE RECORDS SUMMARY | 2025-07-10 05:43 | XMS_ITS | Patient Health Record ---
Author Organization [facility] Address [address] [place] [address] Care Team Providers Care Spring Clipper Name Role Phone Mayra MULLIGAN [facility] Primary Care Provider Temi Cool Unavailable [phone] Allergies No Known Allergies Reason For Referral No Information Medications Medication SIG (Take, Route, Frequency, Duration) Notes Start Date End Date Status Paxil 10 MG Tablet Oral A ctive Melatonin 3 MG Tablet Oral Active Propranolol HCl 10 MG Tablet Oral Active Wellbutrin SR 150 MG Tablet Extended Release 12 Hour Oral Act terry Zubsolv 5.7-1.4 mg Tablet Sublingual Sublingual Active Suboxone 4-1 mg Film Sublingual Active Levothyroxine Sodium 25 MCG Tablet Oral Active PROzac 20 MG Capsule Oral Active Paxil 20 MG Tablet Oral A ctive traZODone HCl 100 MG Tablet Oral Active Paxil 40 MG Tablet Oral A ctive PROzac 10 MG Capsule Oral Active Suboxone 8-2 MG Film Sublingual Active QUEtiapine Fumarate 100 MG Tablet Oral Active QUEtiapine Fumarate 50 MG Tablet Oral Active QUEtiapine Fumarate ER 150 MG Tablet Extended Release 24 Hour Oral Active SEROquel 50 MG Tablet Oral Active Social History Sex Assigned At : Social History Observation Description Sex Assigned At Male Plan Of Treatment No Information Insurance Providers Payer Name Payer Address Payer Phone Subscriber Number Group Number Insured Name Patient Relationship to Insured Coverage Start Date Coverage End Date Cigna [address] [place] [id number] YANICK GARCIA Self - patient is the insured
[2025-07-10 05:57] VITALS: PULSE 77; RESP 18; TEMP 36.2; O2SAT 100
[2025-07-10] MEDS: PROCHLORPERAZINE EDISYLATE 10 MG/2 ML VIAL IV PUSH (08:26)
[2025-07-10] MEDS: LACTATED RINGERS 1,000 ML 999 ML IV CONT (08:26)
--- NOTE | 2025-07-10 08:27 | ED.GENADULT ---
HPI - General Adult General Chief complaint: Headache Stated complaint: SORIANO Time Seen by Provider: 07/10/25 07:59 History of Present Illness HPI narrative: 45-year-old male present to the emergency department for evaluation for a headache for the last 2 days. Patient states that he did have his 1st session with a personal injury litigation paralegal and states while he was on the treadmill he had onset an intense frontal headache. Patient states he did take Tylenol and that did significantly help the pain but he states he has had a persistent frontal headache since then. Patient denies any associated nausea vomiting. Patient denies any focal numbness or weakness. At time of evaluation patient appears to be in no distress. Patient is well-appearing. Patient states he is very deconditioned but has no prior history of coronary artery disease. Related Data Home Medications ?Medication ?Instructions ?Recorded ?Confirmed ?Last Taken ?Type melatonin 10 mg capsule 10 mg PO QHS PRN sleep 05/17/25 06/16/25 Unknown History Allergies Allergy/AdvReac Type Severity Reaction Status Date / Time No Known Allergies Allergy Verified 07/10/25 05:41 Review of Systems Review of Systems: All systems reviewed & are unremarkable except as noted in HPI and below PMFSH Past Medical History Medical History Colon cancer screening GERD (gastroesophageal reflux disease) Depression Type 2 diabetes mellitus Sleep apnea Diabetes Hypertension Fracture of distal end of right radius and ulna Surgical History Surgical History Hx of blepharoplasty right upper eyelid History of tonsillectomy History of appendectomy Family History Family History Mother Family history of diabetes mellitus in first degree relative Family history of malignant neoplasm of breast in first degree relative Father No problems noted. Sibling No problems noted. Social History Social History Years smoked: 15 Smoking status: Former smoker Tobacco type: cigarettes and e-cigarettes/vaping Smoking end date: 11/03/22 Alcohol intake: current Alcohol use details: once a month Substance use: current Substance use type: marijuana Other substance usage details: smokes marijuana daily Last use: 05/30/25 Living arrangements: with family Spiritual care concerns: No Exam Narrative: APPEARANCE: Well appearing, no pain, no distress, well-nourished. HEAD: normocephalic, atraumatic. EYES: PERRLA/EOMI, conjunctivae clear. NOSE: Normal no drainage EARS:TMS clear with good light reflex. THROAT: Pharynx clear, no exudate. NECK: Supple. No adenopathy, no masses. RESPIRATORY: Airway patent, respirations nonlabored. Clear to auscultation bilaterally, no rales, rhonchi, wheezing. CARDIOVASCULAR: Regular rate and rhythm without murmurs rubs or gallops. ABDOMINAL: Soft, nontender, nondistended, normal bowel sounds MUSCULOSKELETAL: Moves all extremities. Strength/ROM intact, No edema, No calf tenderness. NEURO: Alert. Cranial nerves II through XII intact. Good gait. Good coordination SKIN: Warm, dry. Normal Color Course Vital Signs Vital signs: Vital Signs Temperature 97.2 F L 07/10/25 05:57 Pulse Rate 77 07/10/25 05:57 Respiratory Rate 18 07/10/25 05:57 Pulse Oximetry 100 07/10/25 05:57 Oxygen Delivery Room Air 07/10/25 05:57 Temperature 97.2 F L 07/10/25 05:57 Pulse Rate 86 07/10/25 10:38 Respiratory Rate 14 07/10/25 10:38 Blood Pressure 142/86 H 07/10/25 10:38 Pulse Oximetry 98 07/10/25 10:38 Oxygen Delivery Room Air 07/10/25 05:57 Medical Decision Making [facility] Narrative Medical decision making narrative: 45-year-old male presents emergency department for evaluation for headache. Patient is currently afebrile with no leukocytosis hemoglobin is 13.2, no acute abnormalities on CMP INR is 1.1. Head CT was negative for acute intracranial abnormality. Patient reports he does feel significantly improved after treatment with IV Compazine, IV Benadryl IV fluids and IV Toradol. Patient was comfortable plan for discharge to home. All questions concerns were addressed. Differential Diagnosis Differential Diagnosis: Subarachnoid hemorrhage, hypertension, migraine, headache Vital Signs Vital Signs: Vital Signs Temperature 97.2 F L 07/10/25 05:57 Pulse Rate 77 07/10/25 05:57 Respiratory Rate 18 07/10/25 05:57 Pulse Oximetry 100 07/10/25 05:57 Oxygen Delivery Room Air 07/10/25 05:57 Temperature 97.2 F L 07/10/25 05:57 Pulse Rate 86 07/10/25 10:38 Respiratory Rate 14 07/10/25 10:38 Blood Pressure 142/86 H 07/10/25 10:38 Pulse Oximetry 98 07/10/25 10:38 Oxygen Delivery Room Air 07/10/25 05:57 Lab Data Lab results reviewed: Yes I reviewed the patient's lab results. 07/10/25 08:34 07/10/25 08:34 Labs: Lab Results 07/10/25 Range/Units 08:34 WBC 10.0 (4.5-10.0) K/mm3 RBC 4.50 L (4.6-6.20) M/mm3 Hgb 13.2 L (14.0-18.0) g/dL Hct 41.0 L (42.0-52.0) % MCV 91.1 (80-100) fl MCH 29.3 (26-34) pg MCHC 32.2 (32-36) g/dl RDW 13.9 (11.5-14.5) % Plt Count 259 (150-375) k/mm3 MPV 10.2 (7.4-10.4) fl Immature Gran % (Auto) 0.7 H (0-0.5) % Neut % (Auto) 71.9 (45.5-73.1) % Lymph % (Auto) 17.1 L (18.3-44.2) % [place] % (Auto) 8.2 (2.6-8.5) % Eos % (Auto) 1.4 (0-4.4) % Baso % (Auto) 0.7 (0.2-1.2) % Lymph # (Auto) 1.70 (0.9-3.2) K/mm3 [place] # (Auto) 0.8 H (0.1-0.6) K/mm3 Eos # (Auto) 0.1 (0-0.3) K/mm3 Baso # (Auto) 0.1 (0.0-0.1) K/mm3 Abs Immat Gran (auto) 0.07 H (0.00-0.031) K/mm3 Absolute Neuts (auto) 7.2 H (1.3-6.7) K/mm3 Absolute Nucleated RBC 0.000 (0.0-0.012) K/mm3 Nucleated RBC % 0.0 (0.0-0.2) % PT 13.1 (11.1-14.7) Seconds INR 1.0 APTT 25.4 (22.3-36.8) Seconds Sodium 139 (137-145) mmol/L Potassium 4.5 (3.4-5.0) mmol/L Chloride 105 (98-107) mmol/L Carbon Dioxide 27 (22-30) mmol/L Anion Gap 7 (4-12) mmol/L BUN 20 (9-20) mg/dL Creatinine 0.83 (0.7-1.3) mg/dL Estim Creat Clear Calc 118 ml/min Estimated GFR > 60 (59 - ) Glucose 113 H (65-110) mg/dL Calcium 9.3 (8.4-10.2) mg/dL Total Bilirubin 0.5 (0.2-1.3) mg/dL AST 39 (17-59) U/L ALT 35 (6-50) U/L Alkaline Phosphatase 63 (38-126) U/L Total Protein 7.6 (6.3-8.2) g/dL Albumin 4.4 (3.5-5.1) g/dL Imaging Data Radiologist's impression: Impressions Head CT 07/10/25 11:20 Impression: 1.No acute intracranial abnormality. Discharge Plan Discharge Clinical Impression: Headache Patient Disposition: Home Condition: Stable Instructions: Antibiotic Form, Acute Headache (DC) Additional Instructions: Tylenol and ibuprofen for pain control. Have close follow-up with your primary care physician. If you have any worsening symptoms then please call or return to the emergency department. Avoid heavy exertion until cleared by your primary care physician. Patient Language: [place] Prescriptions: No Action omeprazole 40 mg capsule,delayed release(DR/EC) 40 mg PO DAILY Qty: 90 1RF fluoxetine 40 mg capsule 40 mg PO DAILY Qty: 90 1RF melatonin 10 mg capsule 10 mg PO QHS PRN (Reason: sleep) atorvastatin [Lipitor] 20 mg tablet 20 mg PO QHS Qty: 90 2RF cholecalciferol (vitamin D3) 50 mcg (2,000 unit) capsule 50 mcg PO DAILY Qty: 90 1RF Follow-up/Referrals: Jer,Lida N., AIRPLANE FUELER [Primary Care Provider, [facility]]
[2025-07-10 08:41] LABS: Hematocrit 41.0 % (42.0-52.0); Hemoglobin 13.2 g/dL (14.0-18.0); Immature Granulocyte Percent A 0.7 % (0-0.5); Lymphocytes Absolute Auto 1.70 K/mm3 (0.9-3.2); Mean Corpuscular HGB Conc 32.2 g/dl (32-36); Mean Corpuscular Hemoglobin 29.3 pg (26-34); Mean Corpuscular Volume 91.1 fl (80-100); Nucleated Red Blood Cells Absolute Auto 0.000 K/mm3 (0.0-0.012); Nucleated Red Blood Cells Perc 0.0 % (0.0-0.2); Platelet Count Result 259 k/mm3 (150-375); Red Blood Count 4.50 M/mm3 (4.6-6.20); White Blood Count 10.0 K/mm3 (4.5-10.0)
[2025-07-10 08:51] LABS: Alanine Aminotransferase 35 U/L (6-50); Albumin Level 4.4 g/dL (3.5-5.1); Alkaline Phosphatase 63 U/L (38-126); Anion Gap 7 mmol/L (4-12); Aspartate Amino Transferase 39 U/L (17-59); Bilirubin,Total 0.5 mg/dL (0.2-1.3); Blood Urea Nitrogen 20 mg/dL (9-20); Calcium 9.3 mg/dL (8.4-10.2); Carbon Dioxide 27 mmol/L (22-30); Chloride 105 mmol/L (98-107); Estimated CRCL calculation 118 ml/min; Estimated Glomerular Filt Rate > 60; Glucose 113 mg/dL (65-110); Potassium 4.5 mmol/L (3.4-5.0); Sodium 139 mmol/L (137-145); Total Protein 7.6 g/dL (6.3-8.2)
[2025-07-10 08:52] LABS: INR 1.0; Partial Thromboplastin Time 25.4 Seconds (22.3-36.8); Prothrombin Time 13.1 Seconds (11.1-14.7)
[2025-07-10] MEDS: KETOROLAC 15 MG/ML VIAL (*BKC) IV PUSH (10:00)
[2025-07-10 10:02] VITALS: BP 127/81; PULSE 68; RESP 20; O2SAT 100
[2025-07-10 10:38] VITALS: BP 142/86; PULSE 86; RESP 14; O2SAT 98
== END 2025-07-10 10:39 | disposition home or self-care (01) ==
PROVIDERS: Emergency Provider Emergency Medicine; PCP Nurse Practitioner Family
DX: R51.9 Headache, unspecified (principal); K21.9 Gastro-esophageal reflux disease without esophagitis; F32.A Depression, unspecified; E11.9 Type 2 diabetes mellitus without complications; G47.30 Sleep apnea, unspecified; I10 Essential (primary) hypertension
CPT/HCPCS: 36415; 70450; 80053; 85025; 85610; 85730; 96361; 96374; 96375; 99284; J0780; J1200; J1885; J7120

== ENCOUNTER 2025-08-11 09:31 | Outpatient (CLI) | payer OTHER, SELFPAY ==
[2025-08-30 13:03] VITALS: BMI 38.0
--- NOTE | 2025-08-30 13:03 | P.SLEEP_ITS ---
Sleep Study - Home Unattended Date of Study: 08/11/25 Ordering Provider: Jarvis Moore DO Interpreting Provider: Gloria Landin DO Home Sleep Study Type: Watch PAT Height: 1.73 m Weight: 113.398 kg Body Mass Index: 38.0 Neck Circumference (inches): 19.25 [place]: 8 Reason for Sleep Study He was told that he has sleep apnea by his anesthesiologist Sleep History The patient is a 45-year-old male that had a sleep study ordered by his chief technician for evaluation of sleep apnea. He denies awakening from sleep short of breath. He occasionally awakens at night with heartburn, belching or cough. He occasionally snores but is rarely loud enough that others complain. He rarely has trouble sleeping when he has a cold. He denies waking up gasping for air throughout the night. He occasionally has breathing problems at night observed by himself or others. He denies sweating excessively at night. He denies having heart palpitations or irregular heartbeats during the night. He occasionally falls asleep during the day but never while driving. He denies sleep paralysis, cataplexy and hypnagogic/ hypnopompic hallucinations. He denies having trouble at school or work due to sleepiness. He denies feeling afraid of going to sleep. He denies having nightmares. He denies remembering his dreams. He occasionally has thoughts racing through his mind. He occasionally feels sad or depressed. He rarely has anxiety. He denies having muscular tension. He occasionally notices parts of his body jerk. He occasionally kicks during the night. He denies having crawling and aching feelings in his legs and denies having leg pain during the night. He frequently grinds his teeth during sleep but never awakens with morning jaw pain. He denies being bothered by pain during the day and denies being awakened by pain during the night. He occasionally wakes up feeling stiff in the morning. He occasionally wakes up with sore or achy muscles. He occasionally wakes up with pain in the neck, spine and other joints. He goes to bed between 830 9:30 p.m. every night. It takes him 15-20 minutes to fall asleep. He wakes up 2-3 times throughout the night to urinate is able to fall back asleep relatively quickly. He wakes up at 1:00 a.m. every morning. He typically gets 6-7 hours of sleep per night. He will stay in bed for 15 minutes after waking up in the morning. He currently lives with his adult son. He denies consuming any caffeinated beverages within 2 hours of bedtime. He denies engaging in physical exercise before bedtime. He will read and watch television before falling asleep. He will take naps in afternoon or the evening and they are refreshing. He consumes 4-5 caffeinated beverages per day. He is a former smoker. He denies alcohol consumption. He does use an unspecified recreational drugs. [facility] Past Medical History Medical History Colon cancer screening GERD (gastroesophageal reflux disease) Depression Type 2 diabetes mellitus Sleep apnea Diabetes Hypertension Fracture of distal end of right radius and ulna Surgical History Surgical History Hx of blepharoplasty right upper eyelid History of tonsillectomy History of appendectomy Family History Family History Mother Family history of diabetes mellitus in first degree relative Family history of malignant neoplasm of breast in first degree relative Father No problems noted. Sibling No problems noted. Social History Social History Years smoked: 15 Smoking status: Former smoker Tobacco type: cigarettes and e-cigarettes/vaping Smoking end date: 11/03/22 Alcohol intake: current Alcohol use details: once a month Substance use: current Substance use type: marijuana Other substance usage details: smokes marijuana daily Last use: 05/30/25 Living arrangements: with family Spiritual care concerns: No Medications Home Medications ?Medication ?Instructions ?Recorded ?Confirmed ?Type fluoxetine 40 mg capsule 40 mg PO DAILY #90 caps 02/0207/29/25 Rx omeprazole 40 mg capsule,delayed 40 mg PO DAILY #90 ca ps 02/22/25 07/29/25 Rx release melatonin 10 mg capsule 10 mg PO QHS PRN sleep 05/1707/29/25 History ketorolac 10 mg tablet 10 mg PO .q12 PRN pain #10 t abs 07/11/25 07/29/25 Rx atorvastatin 20 mg tablet (Lipitor) 20 mg PO QHS 08/08 History Sleep Procedure The sleep study was completed using Specialized TechPAT a technically adequate device with seven channels: peripheral arterial tone, actigraphy, body position, snore, respiratory movement, pulse oximetry, sleep staging, and heart rate. Prior to using the device, the patient received verbal and written instructions for its application and was provided with the help desk phone number for additional telephonic instruction with 24-hour availability of qualified personnel to answer questions. The study was scored using CMS guidelines. Sleep Architecture The total recording time is 8 hrs, 24 min. The total sleep time is 6 hrs, 35 min. Sleep latency is 20 minutes. REM latency is 193 minutes. The patient had 14 episodes of waking. Sleep architecture shows 6.0% deep sleep, 77.5% light sleep, and (as % Total Sleep Time) showed NREM (Light 77.5%; Deep 6.0%), and a 16.6% stage REM. The patient spent 0.8% of total sleep time in the supine position. Sleep efficiency was 78.37. Respiratory Analysis The overall AHI (pAHI 4%:) is 32.8. The overall AHI (pAHI 3%:) is 40.3. The central AHI is 13.5. The AHI was 41.0 in NREM and 36.9 in REM sleep. The AHI was N/A in Supine and 40.1 in Non-supine sleep. Percent of [place] respirations is 0.0. Oximetry Data The oxygen desaturation index (FABIOLA 4%:) is 23.1. The mean saturation is 91%, and the lowest saturation is 83%. Time spent with saturation < 88% is 11.9 minutes. Snoring Profile Snoring average intensity is 41 dB. The patient snored above 45 decibels for 19.3 minutes, 4.9% of sleep time. Cardiac Profile The average pulse rate is 63 beats per minutes. The lowest pulse rate is 50 bpm. The highest pulse rate reported is 106 bpm. Atrial fibrillation was not detected. Premature beats occur <0.1 per minute. Assessment and Plan Assessment and Plan (1) MAKAYLA (obstructive sleep apnea): Code(s): G47.33 - Obstructive sleep apnea (adult) (pediatric) Status: Acute Assessment and Plan: The patient had an overall AHI of 32.8 with desaturation down to 83%. This is consistent with severe sleep apnea. I recommend that the patient have a CPAP Titration with the use of a hypnotic to ensure we obtain enough sleep data and find an optimal pressure setting. If insurance won't cover the sleep study, you could do a trial of AutoPAP 5-15 cm H2O. Data The data obtained during this sleep study is adequate for interpretation. Certification This sleep study has been reviewed by a board certified sleep medicine physician.
== END 2025-08-12 13:19 | disposition home or self-care (01) ==
PROVIDERS: PCP Nurse Practitioner Family; Visit Provider Internal Medicine Cardiovascular Disease
DX: G47.10 Hypersomnia, unspecified (principal); G47.33 Obstructive sleep apnea (adult) (pediatric)
CPT/HCPCS: 95800

== ENCOUNTER 2025-08-30 14:14 | Outpatient (CLI) | payer OTHER, SELFPAY ==
--- NOTE | ~2025-08-30 | MR_ITS ---
EXAMINATION: MR brain/brain stem wo/w con DATE: 08/30/2025 14:57 INDICATION: Headache, unspecified. TECHNIQUE: Magnetic resonance imaging (MRI) of the brain and brainstem was performed without and with 20 mL MultiHance intravenous contrast. COMPARISON: Head CT 07/10/2025 FINDINGS: There is no intracranial hemorrhage, acute infarction, or abnormal intracranial mass lesion. The ventricles are normal in size. There is mild mucosal thickening in the paranasal sinuses. The orbits are normal. The mastoid air cells are normal. IMPRESSION: 1. Normal brain. Reviewed, dictated and finalized at location E. IMPRESSION: 1. Normal brain.
== END 2025-08-30 14:15 | disposition home or self-care (01) ==
LOC: MICIMG 14:15
PROVIDERS: PCP Nurse Practitioner Family; Visit Provider Nurse Practitioner Family
DX: R51.9 Headache, unspecified (principal)
CPT/HCPCS: 70553; A9577